=== PATIENT | male | born 1945 | race Caucasian/White ===

== ENCOUNTER 2017-03-11 15:05 | Observation (INO) | payer MEDICARE, BC ==
[2017-03-11] MEDS ORDERED: Sodium Chloride 0.9% 10 ML Syringe FLUSH PRN (15:28)
--- NOTE | 2017-03-11 15:28 | EDM.PDOC ---
ED HPI GENERAL MEDICAL PROBLEM - General Chief Complaint: Syncope Stated Complaint: FELL, FACE AND WRIST, [id number] Time Seen by Provider: 03/11/17 15:28 Source of Information: Reports: Patient, Old Records, RN, RN Notes Reviewed - History of Present Illness INITIAL COMMENTS - FREE TEXT/NARRATIVE: Patient arrives POV with complaint of bilateral wrist pain and multiple skin wounds sustained when the 4 foot high ladder that he was stranding on slid out from under him just prior to arrival. Patient states that he road the ladder down and did not directly fall to the ground. He admits to hitting his head but denies loss of consciousness. Shortly after arriving to the triage room, the patient had a syncopal episode with decreased level of consciousness for approximately 3 minutes during which time he became pale and diaphoretic. Patient quickly responded and had no further drops in blood pressure and heart rate. Onset: Today Location: Reports: Head, Upper Extremity, Left, Upper Extremity, Right Quality: Reports: Ache Severity: Severe Improves with: Reports: None Worsens with: Reports: None Associated Symptoms: Reports: No Other Symptoms Left Wrist Pain Score (Numeric/FACES): 7 - Related Data Allergies Allergy/AdvReac Type Severity Reaction Status Date / Time amoxicillin trihydrate Allergy unknown Verified 11/30/15 06:26 [From Augmentin] duloxetine HCl Allergy unknown Verified 11/30/15 06:26 [From Cymbalta] lamotrigine Allergy UNKNOWN Verified 11/30/15 06:26 methadone [Methadone] Allergy NAUSEA/VOMI Verified 11/30/15 06:26 TING/DIARRH EA phenytoin sodium Allergy unknown Verified 11/30/15 06:26 [From Dilantin] phenytoin sodium extended Allergy unknown Verified 11/30/15 06:26 [From Dilantin] potassium clavulanate Allergy unknown Verified 11/30/15 06:26 [From Augmentin] Home Meds: Home Meds Levothyroxine 25 mcg PO DAILY 06/16/14 [History] carBAMazepine [Carbamazepine] 200 mg PO BID 06/16/14 [History] Flunisolide [Nasalide Nasal [place]] 2 spray JAHAIRA BID 06/19/14 [History] Multivitamin with Minerals [Multiple Vitamin] 1 tab PO DAILY 06/19/14 [History] Baclofen 10 mg PO TID 09/05/14 [History] Tamsulosin [Tamsulosin 24 Hr] 0.4 mg PO DAILY 09/05/14 [History] Past Medical History HEENT History: Reports: Hard of Hearing, Impaired Vision, Other (See Below) ( trigeminal neuralgia) Other HEENT History: 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 Gastrointestinal History: Reports: GERD Genitourinary History: Reports: Prostate Disorder Musculoskeletal History: Reports: Other (See Below) Other Musculoskeletal History: SLIGHTLY IMPAIRED MOBILITY TO RIGHT SIDE D/T BRAIN SURGERY; TRIGONOM NEUROPATHY PAIN Neurological History: Reports: Other (See Below) Other Neuro History: Trigeminal neuralgia, 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 Psychiatric History: Reports: Depression Endocrine/Metabolic History: Reports: Hypoparathyroidism Hematologic History: Reports: Iron Deficiency Oncologic (Cancer) History: Reports: Malignant Melanoma Dermatologic History: Reports: Other (See Below) Other Dermatologic History: RASH TO BACK OF HEAD, NECK, BUTTOCKS, AND LEFT ARM - Infectious Disease History Other Infectious Disease History: PATIENT CANNOT REMEMBER INFECTIOUS DISEASE BACKGROUND - Past Surgical History HEENT Surgical History: Reports: Other (See Below) (brain surgery for trigeminal neuralgia.) Neurological Surgical History: Reports: Other (See Below) Oncologic Surgical History: Reports: Other (See Below) Social & Family History - Family History Family Medical History: Noncontributory - Tobacco Use Smoking Status *Q: Former Smoker Second Hand Smoke Exposure: No - Alcohol Use Days Per Week of Alcohol Use: 0 - Recreational Drug Use Recreational Drug Use: Yes - Living Situation & Occupation Living situation: Reports: , with Spouse Occupation: Retired ED ROS GENERAL - Review of Systems Review Of Systems: ROS reveals no pertinent complaints other than HPI. ED EXAM, GENERAL - Physical Exam Exam: See Below Exam Limited By: No Limitations General Appearance: Other (decreased LOC. pale and diaphoretic. ) Eye Exam: Bilateral Eye: Normal Inspection Ears: Normal External Exam, Normal Canal, Hearing Grossly Normal, Normal TMs Nose: Normal Inspection, Normal Mucosa, No Blood Throat/Mouth: Normal Inspection, Normal Lips, Normal Teeth, Normal Gums, Normal Oropharynx, Normal Voice, No Airway Compromise Head: Other (right scalp and facial abrasions and contusion. Chronic postoperative. Right facial/cranial minor deformities.) Neck: Other (mild posterior tenderness. C-spine cleared by CT scan.) Respiratory/Chest: No Respiratory Distress, Lungs Clear, Normal Breath Sounds, No Accessory Muscle Use, Chest Non-Tender Cardiovascular: Regular Rate, Rhythm, Bradycardia GI/Abdominal: Other (benign obese abdomen.) (Male) Exam: Deferred Rectal (Males) Exam: Deferred Back Exam: Normal Inspection, Full Range of Motion, NT Extremities: Other (left wrist tenderness with painful and decreased ROM. Left distal thumb soft tissue avulsion with partial nail avulsion. Abrasions to bilateral upper and lower extremities. ) Neurological: Alert, Oriented, No Motor/Sensory Deficits, Other (sudden near syncope with decreased LOC lasting 3 minutes. Glascow come scale is 15 on arrival, shortly after was 11, 15 at one hour and 15 at discharge..) Lymphatic: No Adenopathy EKG INTERPRETATION EKG Date: 03/11/17 Time: 15:34 Rhythm: Other (sinus bradycardia and first degree AV block.) Rate (Beats/Min): 54 QRS: LBBB Comparison: Change From Previous EKG Course - Vital Signs Last Recorded V/S: Last Vital Signs Temp 36.1 C 03/11/17 15:36 Pulse 48 L 03/11/17 15:36 Resp 20 03/11/17 15:36 BP 60/31 L 03/11/17 15:36 Pulse Ox 94 L 03/11/17 15:36 - Orders/Labs/Meds Orders: Active Orders 24 hr Category Date Time Status Blood Glucose Check, Bedside [RC] ONETIME Care 03/11/17 15:30 Active C Collar Applied [Spinal Immobilization] [RC] Care 03/11/17 15:31 Active ASDIRECTED Cardiac Monitoring [RC] . DIRECTED Care 03/11/17 15:31 Active EKG 12 Lead [EKG Documentation Completion] [RC] STAT Care 03/11/17 15:29 Active Peripheral IV Care [RC] . DIRECTED Care 03/11/17 15:30 Active Vaccines to be Administered [RC] PER UNIT ROUTINE Care 03/11/17 15:30 Active Sodium Chloride 0.9% [Normal Saline] 1,000 ml Med 03/11/17 17:00 Active IV ASDIRECTED Sodium Chloride 0.9% [Saline Flush] Med 03/11/17 15:28 Active 10 ml FLUSH ASDIRECTED PRN Peripheral IV Insertion Adult [OM.PC] Stat Oth 03/11/17 15:29 Ordered Medication Orders Sodium Chloride (Normal Saline) 1,000 mls @ 200 mls/hr IV ASDIRECTED RODNEY Last Admin: 03/11/17 16:59 Dose: 200 mls/hr Sodium Chloride (Saline Flush) 10 ml FLUSH ASDIRECTED PRN PRN Reason: Keep Vein Open Labs: Laboratory Tests 03/11/17 03/11/17 03/11/17 Range/Units 15:01 15:29 15:37 WBC 6.0 (5.0-10.0) 10^3/uL RBC 4.36 L (4.6-6.2) 10^6/uL Hgb 13.9 L (14.0-18.0) g/dL Hct 42.0 (40.0-54.0) % MCV 96.3 (80-100) fL MCH 31.9 (27.0-34.0) pg MCHC 33.1 (33.0-35.0) g/dL Plt Count 172 (150-450) 10^3/uL Neut % (Auto) 61.9 (42.2-75.2) % Lymph % (Auto) 21.7 (20.5-50.1) % [place] % (Auto) 12.2 H (2-8) % Eos % (Auto) 4.0 H (1.0-3.0) % Baso % (Auto) 0.2 (0.0-1.0) % PT (9.0-12.0) SEC INR (0.9-1.2) APTT (22.0-34.0) SEC Sodium (135-145) mmol/L Potassium (3.6-5.0) mmol/L Chloride (101-111) mmol/L Carbon Dioxide (21.0-31.0) mmol/L Anion Gap BUN (7-18) mg/dL Creatinine (0.6-1.3) mg/dL Est Cr Clr Drug Dosing mL/min Estimated GFR (MDRD) BUN/Creatinine Ratio Glucose (74-105) mg/dL POC Glucose 132 H (83-110) mg/dl Lactic Acid (0.5-2.2) mmol/L Calcium (8.4-10.2) mg/dl Total Bilirubin (0.2-1.0) mg/dL AST (10-42) IU/L ALT (10-60) IU/L Alkaline Phosphatase (42-121) IU/L Creatine Kinase (26-174) IU/L Creatine Kinase Index (0-2.4) % CK-MB (CK-2) (0.4-4.7) ng/mL Troponin I (0.00-0.02) ng/ml B-Natriuretic Peptide (0-100) pg/ml Total Protein (6.7-8.2) g/dl Albumin (3.2-5.5) g/dl Globulin Albumin/Globulin Ratio Amylase (28-100) U/L Lipase (22-51) U/L Urine Color (YELLOW) Urine Appearance (CLEAR) Urine pH (5.0-9.0) Ur Specific [place] (1.005-1.030) Urine Protein (NEGATIVE) Urine Glucose (UA) (NEGATIVE) Urine Ketones (NEGATIVE) Urine Occult Blood (NEGATIVE) Urine Nitrite (NEGATIVE) Urine Bilirubin (NEGATIVE) Urine Urobilinogen (0.2-1.0) mg/dL Ur Leukocyte Esterase (NEGATIVE) Urine RBC /HPF Urine WBC (0-5/HPF) /HPF Ur Epithelial Cells /HPF Urine Bacteria (0-FEW/HPF) /HPF Urine Mucus /LPF Urine Other Urine Opiates Screen Negative (NEGATIVE) Ur Oxycodone Screen Negative (NEGATIVE) Urine Methadone Screen Negative (NEGATIVE) Ur Barbiturates Screen Negative (NEGATIVE) U Tricyclic Antidepress Negative (NEGATIVE) Ur Phencyclidine Scrn Negative (NEGATIVE) Ur Amphetamine Screen Negative (NEGATIVE) U Methamphetamines Scrn Negative (NEGATIVE) Urine MDMA Screen Negative (NEGATIVE) U Benzodiazepines Scrn Negative (NEGATIVE) Urine Cocaine Screen Negative (NEGATIVE) U Marijuana (THC) Screen Negative (NEGATIVE) Ethyl Alcohol mg/dL 03/11/17 03/11/17 03/11/17 Range/Units 15:37 15:37 15:37 WBC (5.0-10.0) 10^3/uL RBC (4.6-6.2) 10^6/uL Hgb (14.0-18.0) g/dL Hct (40.0-54.0) % MCV (80-100) fL MCH (27.0-34.0) pg MCHC (33.0-35.0) g/dL Plt Count (150-450) 10^3/uL Neut % (Auto) (42.2-75.2) % Lymph % (Auto) (20.5-50.1) % [place] % (Auto) (2-8) % Eos % (Auto) (1.0-3.0) % Baso % (Auto) (0.0-1.0) % PT 10.0 (9.0-12.0) SEC INR 1.0 (0.9-1.2) APTT 25.0 (22.0-34.0) SEC Sodium 137 (135-145) mmol/L Potassium 3.6 (3.6-5.0) mmol/L Chloride 100 L (101-111) mmol/L Carbon Dioxide 27.0 (21.0-31.0) mmol/L Anion Gap 13.6 BUN 16 (7-18) mg/dL Creatinine 1.0 (0.6-1.3) mg/dL Est Cr Clr Drug Dosing 64.26 mL/min Estimated GFR (MDRD) > 60 BUN/Creatinine Ratio 16.00 Glucose 135 H (74-105) mg/dL POC Glucose (83-110) mg/dl Lactic Acid (0.5-2.2) mmol/L Calcium 8.0 L (8.4-10.2) mg/dl Total Bilirubin 0.7 (0.2-1.0) mg/dL AST 29 (10-42) IU/L ALT 28 (10-60) IU/L Alkaline Phosphatase 77 (42-121) IU/L Creatine Kinase 89 (26-174) IU/L Creatine Kinase Index 3.4 H (0-2.4) % CK-MB (CK-2) 3.00 (0.4-4.7) ng/mL Troponin I < 0.02 (0.00-0.02) ng/ml B-Natriuretic Peptide 25 (0-100) pg/ml Total Protein 6.0 L (6.7-8.2) g/dl Albumin 3.8 (3.2-5.5) g/dl Globulin 2.2 Albumin/Globulin Ratio 1.73 Amylase 83 (28-100) U/L Lipase 22 (22-51) U/L Urine Color (YELLOW) Urine Appearance (CLEAR) Urine pH (5.0-9.0) Ur Specific [place] (1.005-1.030) Urine Protein (NEGATIVE) Urine Glucose (UA) (NEGATIVE) Urine Ketones (NEGATIVE) Urine Occult Blood (NEGATIVE) Urine Nitrite (NEGATIVE) Urine Bilirubin (NEGATIVE) Urine Urobilinogen (0.2-1.0) mg/dL Ur Leukocyte Esterase (NEGATIVE) Urine RBC /HPF Urine WBC (0-5/HPF) /HPF Ur Epithelial Cells /HPF Urine Bacteria (0-FEW/HPF) /HPF Urine Mucus /LPF Urine Other Urine Opiates Screen (NEGATIVE) Ur Oxycodone Screen (NEGATIVE) Urine Methadone Screen (NEGATIVE) Ur Barbiturates Screen (NEGATIVE) U Tricyclic Antidepress (NEGATIVE) Ur Phencyclidine Scrn (NEGATIVE) Ur Amphetamine Screen (NEGATIVE) U Methamphetamines Scrn (NEGATIVE) Urine MDMA Screen (NEGATIVE) U Benzodiazepines Scrn (NEGATIVE) Urine Cocaine Screen (NEGATIVE) U Marijuana (THC) Screen (NEGATIVE) Ethyl Alcohol < 5 mg/dL 03/11/17 03/11/17 Range/Units 15:37 17:01 WBC (5.0-10.0) 10^3/uL RBC (4.6-6.2) 10^6/uL Hgb (14.0-18.0) g/dL Hct (40.0-54.0) % MCV (80-100) fL MCH (27.0-34.0) pg MCHC (33.0-35.0) g/dL Plt Count (150-450) 10^3/uL Neut % (Auto) (42.2-75.2) % Lymph % (Auto) (20.5-50.1) % [place] % (Auto) (2-8) % Eos % (Auto) (1.0-3.0) % Baso % (Auto) (0.0-1.0) % PT (9.0-12.0) SEC INR (0.9-1.2) APTT (22.0-34.0) SEC Sodium (135-145) mmol/L Potassium (3.6-5.0) mmol/L Chloride (101-111) mmol/L Carbon Dioxide (21.0-31.0) mmol/L Anion Gap BUN (7-18) mg/dL Creatinine (0.6-1.3) mg/dL Est Cr Clr Drug Dosing mL/min Estimated GFR (MDRD) BUN/Creatinine Ratio Glucose (74-105) mg/dL POC Glucose (83-110) mg/dl Lactic Acid 1.7 (0.5-2.2) mmol/L Calcium (8.4-10.2) mg/dl Total Bilirubin (0.2-1.0) mg/dL AST (10-42) IU/L ALT (10-60) IU/L Alkaline Phosphatase (42-121) IU/L Creatine Kinase (26-174) IU/L Creatine Kinase Index (0-2.4) % CK-MB (CK-2) (0.4-4.7) ng/mL Troponin I (0.00-0.02) ng/ml B-Natriuretic Peptide (0-100) pg/ml Total Protein (6.7-8.2) g/dl Albumin (3.2-5.5) g/dl Globulin Albumin/Globulin Ratio Amylase (28-100) U/L Lipase (22-51) U/L Urine Color Yellow (YELLOW) Urine Appearance Slightly cloudy (CLEAR) Urine pH 7.5 (5.0-9.0) Ur Specific [place] 1.015 (1.005-1.030) Urine Protein Negative (NEGATIVE) Urine Glucose (UA) Negative (NEGATIVE) Urine Ketones Negative (NEGATIVE) Urine Occult Blood Negative (NEGATIVE) Urine Nitrite Negative (NEGATIVE) Urine Bilirubin Negative (NEGATIVE) Urine Urobilinogen 0.2 (0.2-1.0) mg/dL Ur Leukocyte Esterase Negative (NEGATIVE) Urine RBC 0-5 /HPF Urine WBC 0-5 (0-5/HPF) /HPF Ur Epithelial Cells Few /HPF Urine Bacteria Not seen (0-FEW/HPF) /HPF Urine Mucus Rare /LPF Urine Other See note Urine Opiates Screen (NEGATIVE) Ur Oxycodone Screen (NEGATIVE) Urine Methadone Screen (NEGATIVE) Ur Barbiturates Screen (NEGATIVE) U Tricyclic Antidepress (NEGATIVE) Ur Phencyclidine Scrn (NEGATIVE) Ur Amphetamine Screen (NEGATIVE) U Methamphetamines Scrn (NEGATIVE) Urine MDMA Screen (NEGATIVE) U Benzodiazepines Scrn (NEGATIVE) Urine Cocaine Screen (NEGATIVE) U Marijuana (THC) Screen (NEGATIVE) Ethyl Alcohol mg/dL Meds: Medications Generic Name Dose Route Start Last Admin Trade Name Freq PRN Reason Stop Dose Admin Sodium Chloride 1,000 mls @ 200 mls/hr 03/11/17 17:00 03/11/17 16:59 Normal Saline IV 200 mls/hr ASDIRECTED RODNEY Administration Sodium Chloride 10 ml 03/11/17 15:28 Saline Flush FLUSH ASDIRECTED PRN Keep Vein Open Discontinued Medications Generic Name Dose Route Start Last Admin Trade Name Freq PRN Reason Stop Dose Admin Bacitracin 4 dose 03/11/17 16:31 03/11/17 17:17 Bacitracin Oint 1 Gm TOP 03/11/17 16:32 4 dose ONETIME ONE Administration Diphtheria/Tetanus/Acell Pertussis 0.5 ml 03/11/17 15:30 03/11/17 17:16 Adacel IM 03/11/17 15:31 0.5 ml .ONCE ONE Administration Hydromorphone HCl 0.5 mg 03/11/17 17:42 03/11/17 17:58 Dilaudid IVPUSH 03/11/17 17:43 0.5 mg ONETIME ONE Administration Sodium Chloride 1,000 mls @ 999 mls/hr 03/11/17 15:31 03/11/17 16:05 Normal Saline IV 03/11/17 16:31 999 mls/hr .BOLUS ONE Administration Iopamidol 100 ml 03/11/17 16:04 03/11/17 16:06 Isovue-300 (61%) IVPUSH 03/11/17 16:05 100 ml ONETIME ONE Administration Ondansetron HCl 4 mg 03/11/17 17:42 03/11/17 17:57 Zofran IV 03/11/17 17:43 4 mg ONETIME ONE Administration - Radiology Interpretation Free Text/Narrative:: CT Head: No sign of skull fracture or closed head trauma. See rad report. CT C-spine: Evidence of old trauma and arthritis. No acute fractures. See rad report. CT chest, abdomen/pelvis: Hiatus hernia. Sigmoid diverticulosis. Lower pole left renal cyst. No visceral trauma, ascities or hematomas. See rad report. X-ray right wrist: Acute, comminuted mildly impacted but nondisplaced distal radial fracture that extends into the wrist joint. Surrounding soft tissue swelling and associated fracture base of the ulnar styloid. See rad report. Left wrist x-ray: Distal left radial fracture. See rad report. Departure - Departure Time of Disposition: 17:18 ((Admit to Dr. Jeffrey)) Disposition: Admitted As Inpatient 67 Condition: Fair Clinical Impression: Abrasions of multiple sites, Multiple contusions Syncope Qualifiers: Syncope type: unspecified Qualified Code(s): R55 - Syncope and collapse Closed fracture of distal end of left radius with ulna Qualifiers: Encounter type: initial encounter Qualified Code(s): S52.502A - Unspecified fracture of the lower end of left radius, initial encounter for closed fracture ; S52.602A - Unspecified fracture of lower end of left ulna, initial encounter for closed fracture Closed fracture of right distal radius and ulna Qualifiers: Encounter type: initial encounter Qualified Code(s): S52.501A - Unspecified fracture of the lower end of right radius, initial encounter for closed fracture ; S52.601A - Unspecified fracture of lower end of right ulna, initial encounter for closed fracture - Discharge Information - My Orders Last 24 Hours: My Active Orders 03/11/17 15:28 Sodium Chloride 0.9% [Saline Flush] 10 ml FLUSH ASDIRECTED PRN 03/11/17 15:29 EKG 12 Lead [EKG Documentation Completion] [RC] STAT Peripheral IV Insertion Adult [OM.PC] Stat 03/11/17 15:30 Blood Glucose Check, Bedside [RC] ONETIME Peripheral IV Care [RC] . DIRECTED Vaccines to be Administered [RC] PER UNIT ROUTINE 03/11/17 15:31 C Collar Applied [Spinal Immobilization] [RC] ASDIRECTED Cardiac Monitoring [RC] . DIRECTED 03/11/17 17:00 Sodium Chloride 0.9% [Normal Saline] 1,000 ml IV ASDIRECTED - Assessment/Plan Last 24 Hours: My Active Orders 03/11/17 15:28 Sodium Chloride 0.9% [Saline Flush] 10 ml FLUSH ASDIRECTED PRN 03/11/17 15:29 EKG 12 Lead [EKG Documentation Completion] [RC] STAT Peripheral IV Insertion Adult [OM.PC] Stat 03/11/17 15:30 Blood Glucose Check, Bedside [RC] ONETIME Peripheral IV Care [RC] . DIRECTED Vaccines to be Administered [RC] PER UNIT ROUTINE 03/11/17 15:31 C Collar Applied [Spinal Immobilization] [RC] ASDIRECTED Cardiac Monitoring [RC] . DIRECTED 03/11/17 17:00 Sodium Chloride 0.9% [Normal Saline] 1,000 ml IV ASDIRECTED
[2017-03-11] MEDS ORDERED: Diphtheria,Pertussis(Acell),Tetanus Vaccine 0.5 ML SDV IM ONE (15:30)
[2017-03-11] MEDS ORDERED: Sodium Chloride 0.9% 1,000 ML IV ONE (15:31)
[2017-03-11] MEDS ORDERED: Iopamidol 612 MG/ML 100 ML Bottle IVPUSH ONE (16:04)
[2017-03-11 16:07] LABS: CHLORIDE,CL 100 mmol/L (101-111); SODIUM,NA 137 mmol/L (135-145)
[2017-03-11] MEDS ORDERED: Bacitracin Oint 1 GM U/D Packet TOP ONE (16:31)
--- NOTE | 2017-03-11 16:55 | CT ---
Clinical history: A 71-year-old male who broke both wrists in a fall off of a ladder. Contusion side of the head but no other pain. Scan technique: Volume acquisition of data emergency unenhanced CT scan cervical spine obtained the p atient lying supine on a Siemens multi slice CT scanner [facility]. All data archived in the PACS system for storage, reformatting and study. Interpretation: 1. Nondisplaced smoothly corticated osseous fragment posterior corner, base of the second vertebral b millie, without associated soft tissue swelling, has appearance most consistent with old injury ("[facility]"). 2. Reactive atlantoaxial sclerosis and hypertrophic marginal spondylosis multiple levels cervical and upper thoracic spine. 3. No prevertebral soft tissue swelling and no signs of acute cervical fracture, spondylolisthesis or jumped locked facet. CONCLUSION: Evidence of old trauma and arthritis. No acute fractures.
--- NOTE | 2017-03-11 16:56 | CR ---
Clinical history: 71-year-old male fell off a ladder. Interpretation: 3 views right wrist abnormal. Acute, comminuted, mildly impacted but nondisplaced distal radial fracture that extends into the wris t joint. No carpal bone fracture or dislocation.. Surrounding soft tissue swelling and associated fracture base of the ulnar styloid.
[2017-03-11] MEDS ORDERED: Sodium Chloride 0.9% 1,000 ML IV SCH (17:00)
--- NOTE | 2017-03-11 17:35 | CR ---
Clinical history: 71-year-old male ejected in fall off of ladder. Interpretation: Comminuted, slightly impacted and dorsally angulated distal diametaphyseal fracture l eft radius that extends into the ipsilateral wrist joint. Chronic soft tissue swelling but no other fracture or signs of wrist dislocation. No foreign bodies. Conclusion: Abnormal. Distal left radial fracture.
--- NOTE | 2017-03-11 17:38 | CT ---
Clinical history: 71-year-old male injured in fall off of roof (broke both wrists). Scan technique: Volume acquisition of data emergency unenhanced CT scan of the head and brain obtaine d with patient lying supine on a Siemens multi slice CT scanner [facility]. All data archived in the PACS system for storage, reformatting and study (bone/brain wind ows). Interpretation: Uniformly thick bony calvarium without sign of skull fracture, underlying brain contu huong or epidural/subdural hematoma. Symmetric clear pneumatization of the mastoid and paranasal sinus es. Mild age appropriate atrophy symmetric in appearance with underlying mirror-image normal ventricular system. No sign of supratentorial or posterior fossa mass lesion. No hydrocephalus. No ischemic infarcts. No sign of acute intracerebral/intraventricular/subarachnoid bleed. Physiologic midline pineal and symmetric choroid plexus calcifications. Cerebellum and brainstem unre markable. CONCLUSION: No sign of skull fracture or closed head trauma.
[2017-03-11] MEDS ORDERED: HYDROmorphone 1 MG/ML Syringe IVPUSH ONE (17:42)
[2017-03-11] MEDS ORDERED: Ondansetron 4 MG/2 ML SDV IV ONE (17:42)
--- NOTE | 2017-03-11 17:46 | CT ---
Clinical history: 71-year-old male injured in fall (off of the roof) which he broke both wrists. Scan technique: Volume acquisition of data emergency unenhanced CT scan of the chest, abdomen and pel vis obtained with patient lying supine on the Siemens multi slice CT scanner [place], [place]. All data archived in the PACS system for storage, reformatting and study. Interpretation: Kyphosis dorsal spine, signs of multilevel mid thoracic and lower lumbar disc disease with associated hypertrophic arthritic changes of the spine. No thoracolumbar fracture or dislocatio n. No foreign bodies. Normal cardiac silhouette and faint calcifications normal caliber thoracic and abdominal aorta. No pe ricardial effusion. No rib fractures, lung contusion or pleural effusion. No lung mass or lobar infiltrate. (Large hiatus hernia middle mediastinum) Gallbladder, unenhanced liver, stomach, spleen, pancreas, adrenal glands and kidneys unremarkable exc ept for a solitary 1.5 cm diameter cyst lower pole left kidney. No perinephric hematomas. No nephroli thiasis or obstruction. Sigmoid diverticulosis. No pelvic or abdominal mass lesion, signs of mechanical bowel obstruction, inflammatory "dirty" perit alexander fat, ascites or free intraperitoneal air. CONCLUSION: Hiatus hernia. Sigmoid diverticulosis. Lower pole left renal cyst. No visceral trauma, as cites or hematomas.
[2017-03-11] MEDS ORDERED: Magnesium Hydroxide 400 MG/5 ML Susp 30 ML Cup PO PRN (18:03)
[2017-03-11] MEDS ORDERED: Bisacodyl 10 MG Supp RECTAL PRN (18:03)
[2017-03-11] MEDS: Acetaminophen 325 MG Tab PO PRN (18:59)
[2017-03-11] MEDS: carBAMazepine 100 MG Tab.Chew PO SCH (21:02)
[2017-03-11] MEDS: Baclofen 10 MG Tab PO SCH (21:23)
[2017-03-11] MEDS: Acetaminophen/HYDROcodone 325-5 MG Tab PO PRN (21:23)
[2017-03-11] MEDS: Tamsulosin 0.4 MG Cap.ER PO SCH (21:39)
[2017-03-12] MEDS: Acetaminophen 325 MG Tab PO PRN (00:29)
[2017-03-12] MEDS: Acetaminophen/HYDROcodone 325-5 MG Tab PO PRN ×4 (03:18→21:11)
[2017-03-12] MEDS ORDERED: Tamsulosin 0.4 MG Cap.ER PO SCH (09:00)
[2017-03-12] MEDS: Tamsulosin 0.4 MG Cap.ER PO SCH (09:02)
[2017-03-12] MEDS: Levothyroxine 25 MCG Tab PO SCH (09:02)
[2017-03-12] MEDS: carBAMazepine 100 MG Tab.Chew PO SCH ×2 (09:03→21:10)
[2017-03-12] MEDS: Baclofen 10 MG Tab PO SCH ×3 (09:04→21:10)
--- NOTE | 2017-03-12 12:53 | HP ---
REASON FOR ADMISSION: Fall from ladder with bilateral wrist fractures. HISTORY OF PRESENT ILLNESS: Mr. Heath is a 71-year-old gentleman who was at his son's home, doing shingling; he had a ladder propped up and the ladder slipped, went off under him, and he extended his arms to break the fall and sustained fractures of the bilateral wrists. Splints were placed in the ER and he was admitted for short-term management. 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 Hypothyroidism, cerebral vascular disease with previous stroke, history of gastric ulcer, history of UGI bleed. The chart states previous stroke, although he denies that, but it is mentioned several times in his chart. He is followed by the [facility]. PAST SURGICAL HISTORY: Appendectomy, upper GI with biopsy in 2014, and previous craniotomy. SOCIAL HISTORY: He is . He was a former smoker, who smoked from around the age of 14 until 01/01/1992, at 11:30 a.m. when he decided he was just going to stop smoking and he quit. He smoked between 1 to 1/2 packs of cigarettes a day which gives him more than a 50-pack year history of smoking. No regular alcohol use. 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 He has 1 son, 1 daughter, 4 grandchildren, and 1 great grandchild. He grew up in the [facility]. HISTORY: He was in the [employer] for almost 4 years. He spent 2-1/2 years in [place]. He has no service-connected disability. FAMILY HISTORY: Father of heart disease. CURRENT MEDICATIONS: 1. Carbamazepine. 2. Tamsulosin. 3. Multivitamin with minerals. 4. Levothyroxine. 5. Nasalide nasal spray. 6. Baclofen. Please see [employer] for dosing. ALLERGIES: 1. Amoxicillin. 2. Cymbalta. 3. Lamotrigine. 4. Methadone. 5. Phenytoin. PHYSICAL EXAMINATION: General: He is a pleasant gentleman who is lying in bed, both of his arms are encased in short-arm splints. He did not appear to be in any acute pain. He participated throughout the visit. Memory was intact. Vital Signs: Blood pressure was 128/62 on the left, 134/73 on the right; pulse 82 and regular; respiratory rate 20; oxygen saturation 94% on room air; and he is afebrile. Height 5 feet 7 inches, stated weight of 180 pounds, although he looks somewhat heavier. HEENT: Showed neck to be supple. ENT was clear. He does have scrapes along the right caodaism area, which are covered with a Tegaderm. Chest: Showed clear, but diminished bilateral breath sounds. Heart: Showed regular rate and rhythm. Abdomen: Obese, soft, and benign. Musculoskeletal: Lower extremities showed abrasions on the knees, where he had fallen. Examination of the upper extremities showed both arms to be encased in a short-arm fiberglass splints. LABORATORY DATA: CBC was unremarkable. Baseline PT and PTT within normal limits. Chemistry showed normal electrolytes. BUN and creatinine were 16 and 1.0 with a GFR of more than 60. Nonfasting blood sugar 135. LFTs are unremarkable. CPK was normal. Troponin was less than 0.02. BNP was normal. Amylase and lipase were negative. Urinalysis was unremarkable. No hematuria. Urine toxicology was negative. Blood alcohol was not detected. IMAGING STUDIES: CT scan of the cervical spine, chest, abdomen and pelvis were performed. Cervical spine showed evidence of old trauma and arthritis, but no acute fractures. CT scan of the chest, abdomen and pelvis showed a hiatal hernia, sigmoid diverticulosis, a cyst at lower pole of the left kidney, but no internal trauma to the viscera. No ascites. No hematomas. CT scan of the head showed no sign of skull fracture or closed head injury. X-rays were taken of the bilateral wrists. On the right wrist, it was an acute comminuted mildly impacted, but nondisplaced distal radial fracture that extends into the wrist joint. X-rays of the left wrist showed a comminuted slightly impacted dorsally angulated distal fracture of the left radius that extends into the wrist joint. IMPRESSION: A 71-year-old gentleman who was on a ladder, doing shingling, when the ladder slipped and he fell with arms extended and sustained bilateral wrist fractures as above. PLAN: He was admitted for further observation and for pain management. We started him on hydrocodone 5/325, 1 tablet every 6 hours p.r.n. for pain. The arms will be elevated when possible while in bed. We offered to place cold packs over the splinting, but he did not think that they could penetrate the fiberglass, although we explained to him it could, but he declined. The images of his wrist fractures have been sent to the [facility] and tomorrow we will contact Orthopedics to arrange a followup plan. CONDITION AT THE TIME OF ADMISSION: Hemodynamically and neurologically stable. CODE STATUS: Full code. [facility] /[id number]
[2017-03-12] MEDS: Heparin Sodium 5,000 Units/ML Vial SUBCUT SCH ×2 (14:59→21:11)
--- NOTE | 2017-03-12 15:02 | PN ---
DATE: 03/12/2017 HISTORY OF PRESENT ILLNESS: Mr. Kumar Willingham is a 71-year-old male with medical history significant for hypertension, hypothyroidism, was admitted to the hospital after he had a fall at home and sustaining a bilateral wrist fractures. For the last 24 hours, the patient continues to have pain to the bilateral wrist more so on the left side, rates it as 5 to 6/10 in intensity, aggravated on movement, relieved with pain medication, nonradiating type of pain, not associated with any nausea or vomiting. Denies any chest pain. No shortness of breath. No abdominal pain. No nausea. No vomiting. No diarrhea. No headaches. No changes in the vision. REVIEW OF SYSTEMS: Cardiovascular, respiratory, gastrointestinal, neurology, constitutional were all evaluated. PHYSICAL EXAMINATION: Vital Signs: Temperature of 98.6, pulse of 75, blood pressure 104/52, respiratory rate of 20, saturating at 97% on room air. General Appearance: The patient is well oriented to time, place, and person. Follows commands spontaneously. Cardiovascular System: S1, S2 heard with normal intensity. No gallops. Respiratory: Clear to auscultation bilaterally. No wheeze. No crepitations. Abdomen: Soft. Bowel sounds positive. Nontender. No rigidity. Extremities: No edema in bilateral lower extremities. The patient is noted to have a splint on bilateral upper extremity for his wrist fracture. MEDICATIONS: Reviewed. Continue with: 1. Tylenol 650 every 4 hours as needed for pain. 2. [place] 5/325 mg every 6 hours as needed for pain. 3. Bisacodyl 10 mg rectal as needed for constipation. 4. Carbamazepine 200 mg twice a day. 5. Levothyroxine 25 mg daily. 6. Flomax 0.4 mg p.o. daily. LABORATORY DATA: Reviewed. ASSESSMENT: 1. Bilateral wrist fractures. 2. Hypothyroidism. PLAN: 1. Bilateral wrist fractures. I had a detailed discussion with Dr. Axel Loyd from [facility], and as per Orthopedic Services, the patient will need outpatient followup, but currently patient is having excessive pain. He is currently on observation status. We will closely monitor him for the next 24 hours. We will closely follow with the pain medications. We will have Physical Therapy and Occupational Therapy evaluate and treat the patient, and possible discharge the patient in a.m. He will be advised to follow with Orthopedic Services on Thursday at [facility] for possible casting at this time. No surgical intervention needed at this time as discussed with Orthopedic Services. 2. Hypothyroidism. Continue with levothyroxine. 3. DVT prophylaxis. We will have him on heparin for subcu q.8 hourly for DVT prophylaxis. 4. Discussed with family members at bedside. 5. Discussed with Dr. Es Jeffrey regarding the plan of care. [facility] /[id number]
[2017-03-12] MEDS ORDERED: Fluticasone Propionate Nasal Spray 16 GM Bottle NASBOTH PRN (16:37)
[2017-03-13] MEDS: Acetaminophen/HYDROcodone 325-5 MG Tab PO PRN ×2 (02:45→10:27)
[2017-03-13] MEDS: Heparin Sodium 5,000 Units/ML Vial SUBCUT SCH (05:17)
[2017-03-13 07:35] VITALS: BP 123/80
[2017-03-13] MEDS: Baclofen 10 MG Tab PO SCH (10:19)
[2017-03-13] MEDS: Levothyroxine 25 MCG Tab PO SCH (10:19)
[2017-03-13] MEDS: carBAMazepine 100 MG Tab.Chew PO SCH (10:19)
[2017-03-13] MEDS: Tamsulosin 0.4 MG Cap.ER PO SCH (10:19)
--- NOTE | 2017-03-13 12:37 | DISCH ---
ADMITTING DIAGNOSIS: Bilateral wrist fractures. DISCHARGE DIAGNOSIS: Bilateral wrist fractures. HISTORY OF PRESENT ILLNESS: Mr. Mat Heath is a 71-year-old male with a medical history significant for trigeminal neuralgia, hypothyroidism, cerebrovascular disease with previous history of cerebrovascular accident in the past, history of upper GI bleed in the past, presented to the hospital after he had a fall from the ladder and sustained bilateral wrist fractures. The patient was referred to observation status. He was closely monitored in the Telemetry Unit in the initial 24 hours, which did not show any acute pathology. He remained in normal sinus rhythm. He continued to have pain requiring opiate pain medications. The patient's case was referred to [facility], who have reviewed the imaging studies and suggested for outpatient followup on Thursday for further treatment plans. No surgical intervention planned at this time. The patient remained hemodynamically stable on this admission. He is discharged home in stable condition. He is advised to follow with Orthopedic Services at [facility] on Thursday. DISCHARGE MEDICATIONS: Include: 1. [place] 5/325 mg every 6 hours as needed for pain. 2. Baclofen 10 mg three times a day. 3. Docusate sodium with Senokot as needed for constipation twice a day. 4. Flunisolide nasal spray as needed. 5. Levothyroxine 25 mcg daily. 6. Multivitamin 1 tablet daily. 7. Flomax 0.4 mg daily. 8. Carbamazepine 200 mg twice daily. PHYSICAL EXAMINATION: On the day of discharge: Vital Signs: Temperature of 98.5, pulse of 73, respiratory rate of 20, blood pressure 123/80, and saturating at 98% on room air. General: The patient is well oriented to time, place, and person. Follows commands spontaneously. Cardiovascular System: S1 and S2 heard with normal intensity. No gallops. Respiratory System: Clear to auscultation bilaterally. No wheeze. No crepitations. Abdomen: Soft. Bowel sounds positive. Nontender. No rigidity. Extremities: No edema, bilateral lower extremities. CONDITION ON ADMISSION: Poor. CONDITION ON DISCHARGE: Stable. ACTIVITY: As tolerated. No driving recommended. DIET: Regular diet. DISCHARGE INSTRUCTIONS: 1. Follow up with Orthopedic Services at [facility] on Thursday for further evaluation and treatment. 2. The patient was explained about the additional medications and side effect profile of medications. 3. Follow up with primary care physician as scheduled. LIANG: 03/13/2017 11:06:52 [facility] /[id number]
--- NOTE | 2017-03-17 13:20 | EKG ---
03/11/2017 - ABDULAZIZ GODFREY - A 12-lead EKG shows normal sinus rhythm with sinus bradycardia. First-degree AV block and left bundle branch block. Heart rate of 54. HI interval of 224. QTc of 471. No significant ST elevation or ST depression noted on this 12-lead EKG. [facility] /[id number]
== END 2017-03-13 12:10 | disposition home or self-care (01) ==
LOC: DL.ED 15:05 → UNDOADMOB 17:31 → INTOOBSV 17:31 → DL.MS 17:31 → UNDOADMOB 17:35 → DL.MS 17:35
PROVIDERS: ADMIT Internal Medicine; ATTEND Internal Medicine
DX: S52.502A Unspecified fracture of the lower end of left radius, initial encounter for closed fracture (principal); S52.501A Unspecified fracture of the lower end of right radius, initial encounter for closed fracture; K21.9 Gastro-esophageal reflux disease without esophagitis; F32.9 Major depressive disorder, single episode, unspecified; E20.9 Hypoparathyroidism, unspecified; W11.XXXA Fall on and from ladder, initial encounter; Z88.1 Allergy status to other antibiotic agents; Z88.8 Allergy status to other drugs, medicaments and biological substances; Z79.899 Other long term (current) drug therapy; Z87.891 Personal history of nicotine dependence; Z98.890 Other specified postprocedural states
CPT/HCPCS: 36415; 70450; 71260; 72125; 73110; 74177; 80053; 80305; 81001; 82150; 82550; 82553; 82962; 83605; 83690; 83880; 84484; 85025; 85610; 85730; 90471; 90715; 93005; 93010; 96361; 96374; 96375; 97165; 99284; A9270; G0480; J1170; J1644; J2405; J7030; Q9967; 96372; 97162-GP; 99217; 99220; 99225; G0378

== ENCOUNTER 2018-10-14 19:58 | Observation (INO) | payer MEDICARE, BC ==
[~2018-10-14 19:58] MED LIST: Sodium Chloride 0.9% 10 ML Syringe FLUSH PRN
[2018-10-14] MEDS ORDERED: Lactated Ringers 1,000 ML IV ONE (20:15)
[2018-10-14 20:27] LABS: ANION GAP 12.3; CHLORIDE,CL 104 mmol/L (101-111); SODIUM,NA 137 mmol/L (135-145)
--- NOTE | 2018-10-14 21:26 | EDM.PDOC ---
ED HPI GENERAL MEDICAL PROBLEM - General Chief Complaint: Cardiovascular Problem Stated Complaint: (CARDIAC) AMBULANCE Time Seen by Provider: 10/14/18 19:58 Source of Information: Reports: Patient, EMS, EMS Notes Reviewed, Family, RN, RN Notes Reviewed History Limitations: Reports: No Limitations - History of Present Illness INITIAL COMMENTS - FREE TEXT/NARRATIVE: Pt to ER per [facility] with c/o syncopal episode. EMS states the patient was eating at [place] with family when he "passed out" and vomited. EMS reports the patient was still lethargic upon arrival. Upon arrival to the ER patient is alert and oriented. He states he does not remember the episode. He denies chest pains or SOB. He states he has been working very hard lately and is "over tired ". Patient states history of surgery for trigeminal neuralgia that left him with facial droop on the left side and right sided hemiparesis. Patient denies any other health problems, denies diabetes. Onset: Today, Sudden - Related Data Allergies Allergy/AdvReac Type Severity Reaction Status Date / Time amoxicillin trihydrate Allergy unknown Verified 03/11/17 20:04 [From Augmentin] duloxetine HCl Allergy unknown Verified 03/11/17 20:04 [From Cymbalta] lamotrigine Allergy UNKNOWN Verified 03/11/17 20:04 methadone [Methadone] Allergy NAUSEA/VOMI Verified 03/11/17 20:04 TING/DIARRH EA phenytoin sodium Allergy Hives Verified 03/11/17 20:04 [From Dilantin] phenytoin sodium extended Allergy unknown Verified 03/11/17 20:04 [From Dilantin] potassium clavulanate Allergy unknown Verified 03/11/17 20:04 [From Augmentin] Home Meds: Home Meds Alfuzosin HCl [Alfuzosin HCl ER] 10 mg PO DAILY 10/14/18 [History] Baclofen 5 mg PO ACLUNCH 10/14/18 [History] Baclofen 10 mg PO BID 10/14/18 [History] Cetirizine HCl 10 mg PO BEDTIME 10/14/18 [History] Pregabalin [Lyrica] 200 mg PO TID 10/14/18 [History] Past Medical History HEENT History: Reports: Hard of Hearing, Impaired Vision, Other (See Below) Other HEENT History: 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 Gastrointestinal History: Reports: GERD Other Gastrointestinal History: ulcer Genitourinary History: Reports: Prostate Disorder Musculoskeletal History: Reports: Other (See Below) Other Musculoskeletal History: SLIGHTLY IMPAIRED MOBILITY TO RIGHT SIDE D/T BRAIN SURGERY; TRIGONOM NEUROPATHY PAIN Neurological History: Reports: Other (See Below) Other Neuro History: Trigeminal neuralgia, 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 Psychiatric History: Reports: Depression Endocrine/Metabolic History: Reports: Hypoparathyroidism Hematologic History: Reports: Iron Deficiency Oncologic (Cancer) History: Reports: Malignant Melanoma Dermatologic History: Reports: Other (See Below) Other Dermatologic History: RASH TO BACK OF HEAD, NECK, BUTTOCKS, AND LEFT ARM - Infectious Disease History Other Infectious Disease History: PATIENT CANNOT REMEMBER INFECTIOUS DISEASE BACKGROUND - Past Surgical History Head Surgeries/Procedures: Reports: Craniotomy HEENT Surgical History: Reports: Other (See Below) Cardiovascular Surgical History: Reports: None Respiratory Surgical History: Reports: None Neurological Surgical History: Reports: Other (See Below) Oncologic Surgical History: Reports: Other (See Below) Social & Family History - Family History Family Medical History: Noncontributory - Tobacco Use Smoking Status *Q: Never Smoker - Caffeine Use Caffeine Use: Reports: None - Recreational Drug Use Recreational Drug Use: No - Living Situation & Occupation Living situation: Reports: , with Spouse Occupation: Retired ED ROS GENERAL - Review of Systems Review Of Systems: ROS reveals no pertinent complaints other than HPI. ED EXAM, GENERAL - Physical Exam Exam: See Below Exam Limited By: No Limitations General Appearance: Alert, WD/WN, No Apparent Distress Eye Exam: Bilateral Eye: EOMI, Normal Inspection Ears: Normal External Exam, Normal Canal, Hearing Grossly Normal, Normal TMs Nose: Normal Inspection, Normal Mucosa, No Blood Throat/Mouth: Normal Inspection, Normal Lips, Normal Teeth, Normal Gums, Normal Oropharynx, Normal Voice, No Airway Compromise Head: Atraumatic, Normocephalic Neck: Normal Inspection, Supple, Non-Tender, Full Range of Motion Respiratory/Chest: No Respiratory Distress, Lungs Clear, Normal Breath Sounds, No Accessory Muscle Use, Chest Non-Tender Cardiovascular: Normal Peripheral Pulses, Regular Rate, Rhythm, No Edema, No Gallop, No JVD, No Murmur, No Rub Peripheral Pulses: 2+: Radial (L), Radial (R), Dorsalis Pedis (L), Dorsalis Pedis (R) GI/Abdominal: Normal Bowel Sounds, Soft, Non-Tender, No Organomegaly, No Distention, No Abnormal Bruit, No Mass (Male) Exam: Deferred Rectal (Males) Exam: Deferred Back Exam: Normal Inspection, Full Range of Motion, NT Extremities: Normal Inspection Neurological: Alert, Oriented, CN II-XII Intact, Normal Cognition, Other ( numbness right arm, right leg, not new) Psychiatric: Normal Affect, Normal Mood Skin Exam: Warm, Dry, Intact, Normal Color, No Rash Lymphatic: No Adenopathy Course - Vital Signs Last Recorded V/S: Last Vital Signs Temp 98.1 F 10/15/18 11:40 Pulse 66 10/15/18 11:40 Resp 18 10/15/18 11:40 BP 136/69 10/15/18 11:40 Pulse Ox 96 10/15/18 11:40 - Orders/Labs/Meds Labs: Laboratory Tests 10/14/18 10/14/18 10/14/18 Range/Units 20:00 20:00 20:00 WBC 5.1 (5.0-10.0) 10^3/uL RBC 4.45 L (4.6-6.2) 10^6/uL Hgb 14.0 (14.0-18.0) g/dL Hct 41.7 (40.0-54.0) % MCV 93.7 (80-100) fL MCH 31.5 (27.0-34.0) pg MCHC 33.6 (33.0-35.0) g/dL Plt Count 151 (150-450) 10^3/uL Neut % (Auto) 52.8 (42.2-75.2) % Lymph % (Auto) 28.3 (20.5-50.1) % [place] % (Auto) 16.3 H (2-8) % Eos % (Auto) 2.4 (1.0-3.0) % Baso % (Auto) 0.2 (0.0-1.0) % PT 9.8 (9.0-12.0) SEC INR 1.0 (0.9-1.2) Sodium 137 (135-145) mmol/L Potassium 3.3 L (3.6-5.0) mmol/L Chloride 104 (101-111) mmol/L Carbon Dioxide 24.0 (21.0-31.0) mmol/L Anion Gap 12.3 BUN 13 (7-18) mg/dL Creatinine 0.9 (0.6-1.3) mg/dL Est Cr Clr Drug Dosing TNP Estimated GFR (MDRD) > 60 BUN/Creatinine Ratio 14.44 Glucose 129 H (74-105) mg/dL Calcium 7.7 L (8.4-10.2) mg/dl Total Bilirubin 0.5 (0.2-1.0) mg/dL AST 23 (10-42) IU/L ALT 16 (10-60) IU/L Alkaline Phosphatase 85 (42-121) IU/L Troponin I < 0.02 (0.00-0.02) ng/ml Total Protein 5.9 L (6.7-8.2) g/dl Albumin 3.6 (3.2-5.5) g/dl Globulin 2.3 Albumin/Globulin Ratio 1.57 Meds: Medications Discontinued Medications Generic Name Dose Route Start Last Admin Trade Name Freq PRN Reason Stop Dose Admin Baclofen 5 mg 10/15/18 11:00 10/15/18 12:59 Lioresal PO Not Given ACLUNCH RODNEY Baclofen 10 mg 10/14/18 23:15 10/15/18 10:43 Lioresal PO Not Given BID RODNEY Heparin Sodium (Porcine) 5,000 units 10/14/18 22:45 10/15/18 10:51 Heparin Sodium SUBCUT Not Given Q12H RODNEY Lactated Ringer's 1,000 mls @ 999 mls/hr 10/14/18 20:15 10/14/18 20:16 Ringers, Lactated IV 10/14/18 21:15 999 mls/hr .BOLUS ONE Administration Potassium Chloride 10 meq/ 100 mls @ 100 mls/hr 10/14/18 22:45 10/15/18 01:50 Premix IV 10/15/18 01:44 100 mls/hr Q1H RODNEY Administration Sodium Chloride 1,000 mls @ 75 mls/hr 10/14/18 22:45 10/15/18 10:21 Normal Saline IV 75 mls/hr ASDIRECTED RODNEY Infusion Alfuzosin 10 Mg Sa 0 mg 10/15/18 09:00 10/15/18 10:43 Tabs Own Med PO Not Given DAILY RODNEY Cetirizine 10 Mg 0 mg 10/14/18 23:30 10/14/18 23:47 Own Med PO 10 mg BEDTIME RODNEY Administration Pregabalin 200 Mg 0 mg 10/14/18 23:15 10/15/18 10:43 Capsules Own Med PO Not Given TID RODNEY Sodium Chloride 10 ml 10/14/18 19:54 10/14/18 20:15 Saline Flush FLUSH 10 ml ASDIRECTED PRN Administration Keep Vein Open - Radiology Interpretation Free Text/Narrative:: Chest xray: FINDINGS: Lungs: Mild pulmonary vascular congestion. Pleural space: No pneumothorax. No sizable pleural effusion. Heart/Mediastinum: Mild cardiomegaly. Bones/joints: Unremarkable. IMPRESSION: Mild pulmonary vascular congestion. Thank you for allowing us to participate in the care of your patient. Dictated and Authenticated by: Nikko Delgado MD 10/14/2018 8:42 PM Central Time ([place] & [place]) Head CT wo contrast: FINDINGS: Brain: Age-related involutional changes and chronic microvascular ischemic disease. No evidence for acute transcortical infarct. No mass effect or midline shift. No extra- axial collection. No acute intracranial hemorrhage. Basal cisterns are patent. Ventricles: Normal. No ventriculomegaly. Bones/joints: Unremarkable. No acute fracture. Sinuses: Mucosal thickening involving the maxillary sinuses and ethmoid air cells. Mastoid air cells: Visualized mastoid air cells are unremarkable. No mastoid effusion. Soft tissues: Unremarkable. IMPRESSION: No evidence for acute transcortical infarct, acute intracranial hemorrhage, or mass effect. Thank you for allowing us to participate in the care of your patient. Dictated and Authenticated by: Nikko Delgado MD 10/14/2018 9:29 PM Central Time ([place] & [place]) See rad report - Re-Assessments/Exams Free Text/Narrative Re-Assessment/Exam: 10/14/18 21:24 Discussed Pt EKG with Dr. Chapa, Chemical Dependency Professional at [facility] in [place]. The current EKG and a past EKG from 2017 was faxed to him for review. He states there is no STEMI at this time. Probable V2 V3 ST elevation due to LBBB, unchanged from 2017 EKG. 10/14/18 21:37 Discussed patient case with Dr. Guzmán who agreed to accept the patient for observation. Departure - Departure Time of Disposition: 21:37 Disposition: Refer to Observation Condition: Fair Clinical Impression: Syncope Qualifiers: Syncope type: unspecified Qualified Code(s): R55 - Syncope and collapse
[2018-10-14] MEDS ORDERED: Sodium Chloride 0.9% 1,000 ML IV SCH (22:45)
--- NOTE | 2018-10-14 23:00 | PCM.HP ---
H&P History of Present Illness - General Date of Service: 10/14/18 Admit Problem/Dx: Admission Diagnosis/Problem Admission Diagnosis/Problem Syncope and collapse Source of Information: Patient History Limitations: Reports: No Limitations - History of Present Illness Initial Comments - Free Text/Narative: Mat is a 73 y/o M who presented to te ER after a syncopal episode. He reports he was at the restaurant with friends when above happened. This happened after dinner. Patient said after eating he started feeling funny and the next thing he noted was he was on the floor. He could not tell how long he was out for but says it was brief. He denied jerky movement of the limbs, tongue bite, fecal or bladder incontinence. He denies headache, light headedness, chest pain, palpitation, SOB, diaphoresis. He has previous episode of similar syncope about 2 years ago. Evaluation was negative. He denies fever, chills, abdominal pain, diarrhea, N/V. No melena or hematochezia. No headache. In the ER he was apparently lethargic initially but became fully awake after IVF. Vitals was unremarkable. EKG showed LBBB with unchanged from previous. As per ER provider she discussed EKG findings with interior specialist at [facility] and there was no concern for STEMI. Troponin was negative. CT brain was negative. CXR mild pulmonary congestion. Patient is being admitted to the hospital for further evaluation. Onset of Symptoms: Reports: Sudden Duration of Symptoms: Reports: Hour(s): Location: Reports: Generalized, Other (syncope) Improves with: Reports: None Worsens with: Reports: None Associated Symptoms: Reports: No Other Symptoms - Related Data Allergies/Adverse Reactions: Allergies Allergy/AdvReac Type Severity Reaction Status Date / Time amoxicillin trihydrate Allergy unknown Verified 03/11/17 20:04 [From Augmentin] duloxetine HCl Allergy unknown Verified 03/11/17 20:04 [From Cymbalta] lamotrigine Allergy UNKNOWN Verified 03/11/17 20:04 methadone [Methadone] Allergy NAUSEA/VOMI Verified 03/11/17 20:04 TING/DIARRH EA phenytoin sodium Allergy Hives Verified 03/11/17 20:04 [From Dilantin] phenytoin sodium extended Allergy unknown Verified 03/11/17 20:04 [From Dilantin] potassium clavulanate Allergy unknown Verified 03/11/17 20:04 [From Augmentin] Home Medications: Home Meds Alfuzosin HCl [Alfuzosin HCl ER] 10 mg PO DAILY 10/14/18 [History] Baclofen 5 mg PO ACLUNCH 10/14/18 [History] Baclofen 10 mg PO BID 10/14/18 [History] Cetirizine HCl 10 mg PO BEDTIME 10/14/18 [History] Pregabalin [Lyrica] 200 mg PO TID 10/14/18 [History] Past Medical History HEENT History: Reports: Hard of Hearing, Impaired Vision, Other (See Below) Other HEENT History: 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 Gastrointestinal History: Reports: GERD Other Gastrointestinal History: ulcer Genitourinary History: Reports: Prostate Disorder Musculoskeletal History: Reports: Other (See Below) Other Musculoskeletal History: SLIGHTLY IMPAIRED MOBILITY TO RIGHT SIDE D/T BRAIN SURGERY; TRIGONOM NEUROPATHY PAIN Neurological History: Reports: Other (See Below) Other Neuro History: Trigeminal neuralgia, 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 Psychiatric History: Reports: Depression Endocrine/Metabolic History: Reports: Hypoparathyroidism Hematologic History: Reports: Iron Deficiency Oncologic (Cancer) History: Reports: Malignant Melanoma Dermatologic History: Reports: Other (See Below) Other Dermatologic History: RASH TO BACK OF HEAD, NECK, BUTTOCKS, AND LEFT ARM - Infectious Disease History Other Infectious Disease History: PATIENT CANNOT REMEMBER INFECTIOUS DISEASE BACKGROUND - Past Surgical History Head Surgeries/Procedures: Reports: Craniotomy HEENT Surgical History: Reports: Other (See Below) Cardiovascular Surgical History: Reports: None Respiratory Surgical History: Reports: None Neurological Surgical History: Reports: Other (See Below) Oncologic Surgical History: Reports: Other (See Below) Social & Family History - Family History Family Medical History: Noncontributory - Tobacco Use Smoking Status *Q: Never Smoker Second Hand Smoke Exposure: No - Caffeine Use Caffeine Use: Reports: Coffee - Recreational Drug Use Recreational Drug Use: No - Living Situation & Occupation Living situation: Reports: , with Spouse Occupation: Retired H&P Review of Systems - Review of Systems: Review Of Systems: See Below General: Reports: No Symptoms HEENT: Reports: No Symptoms Pulmonary: Reports: No Symptoms Cardiovascular: Reports: No Symptoms Gastrointestinal: Reports: No Symptoms Genitourinary: Reports: No Symptoms Musculoskeletal: Reports: No Symptoms Skin: Reports: No Symptoms Psychiatric: Reports: No Symptoms Neurological: Reports: No Symptoms Hematologic/Lymphatic: Reports: No Symptoms Immunologic: Reports: No Symptoms Exam - Exam Exam: See Below - Vital Signs Vital Signs: Last Vital Signs Temp 98.0 F 10/14/18 22:03 Pulse 71 10/14/18 22:03 Resp 20 10/14/18 22:03 BP 131/46 L 10/14/18 22:03 Pulse Ox 95 10/14/18 22:03 Weight: 190 lb 11.2 oz - Exam General: Alert, Oriented, 4 HEENT: PERRLA, Hearing Intact, Mucosa Moist & [place]onan, Nares Patent, Normal Nasal Septum, Posterior Pharynx Clear, Conjunctiva Clear, EOMI, EACs Clear, TMs Clear Neck: Supple, Trachea Midline, 2 Lungs: Clear to Auscultation, Normal Respiratory Effort Cardiovascular: Regular Rate, Regular Rhythm GI/Abdominal Exam: Normal Bowel Sounds, Soft, Non-Tender, No Organomegaly, No Distention, No Abnormal Bruit, No Mass, Pelvis Stable (Male) Exam: No Hernia, Normal Inspection, Normal Prostate, Circumcised Rectal (Males) Exam: Normal Exam, Normal Rectal Tone, Prostate Normal Back Exam: Normal Inspection, Full Range of Motion, NT Extremities: Normal Inspection, Normal Range of Motion, Non-Tender, No Pedal Edema, Normal Capillary Refill Skin: Warm, Dry, Intact Neurological: Cranial Nerves Intact, Reflexes Equal Bilateral Neuro Extensive - Mental Status: Alert, Oriented x3, Normal Mood/Affect, Normal Cognition Neuro Extensive - Motor, Sensory, Reflexes: CN II-XII Intact, Normal Gait, Normal Reflexes Psychiatric: Alert, Normal Affect, Normal Mood - Patient Data Lab Results Last 24 hrs: Laboratory Results - last 24 hr 10/14/18 10/14/18 10/14/18 Range/Units 20:00 20:00 20:00 WBC 5.1 (5.0-10.0) 10^3/uL RBC 4.45 L (4.6-6.2) 10^6/uL Hgb 14.0 (14.0-18.0) g/dL Hct 41.7 (40.0-54.0) % MCV 93.7 (80-100) fL MCH 31.5 (27.0-34.0) pg MCHC 33.6 (33.0-35.0) g/dL Plt Count 151 (150-450) 10^3/uL Neut % (Auto) 52.8 (42.2-75.2) % Lymph % (Auto) 28.3 (20.5-50.1) % [place] % (Auto) 16.3 H (2-8) % Eos % (Auto) 2.4 (1.0-3.0) % Baso % (Auto) 0.2 (0.0-1.0) % PT 9.8 (9.0-12.0) SEC INR 1.0 (0.9-1.2) Sodium 137 (135-145) mmol/L Potassium 3.3 L (3.6-5.0) mmol/L Chloride 104 (101-111) mmol/L Carbon Dioxide 24.0 (21.0-31.0) mmol/L Anion Gap 12.3 BUN 13 (7-18) mg/dL Creatinine 0.9 (0.6-1.3) mg/dL Est Cr Clr Drug Dosing TNP Estimated GFR (MDRD) > 60 BUN/Creatinine Ratio 14.44 Glucose 129 H (74-105) mg/dL Calcium 7.7 L (8.4-10.2) mg/dl Total Bilirubin 0.5 (0.2-1.0) mg/dL AST 23 (10-42) IU/L ALT 16 (10-60) IU/L Alkaline Phosphatase 85 (42-121) IU/L Troponin I < 0.02 (0.00-0.02) ng/ml Total Protein 5.9 L (6.7-8.2) g/dl Albumin 3.6 (3.2-5.5) g/dl Globulin 2.3 Albumin/Globulin Ratio 1.57 Result Diagrams: 10/14/18 20:00 10/14/18 20:00 - Problem List (1) Pulmonary congestion SNOMED Code(s): 10214904 ICD Code: R09.89 - OTH SYMPTOMS AND SIGNS INVOLVING THE CIRC AND RESP SYSTEMS Status: Acute Current Visit: Yes (2) Syncope SNOMED Code(s): 602089746 ICD Code: R55 - SYNCOPE AND COLLAPSE Status: Acute Current Visit: Yes Qualifiers: Syncope type: unspecified Qualified Code(s): R55 - Syncope and collapse (3) Abrasions of multiple sites SNOMED Code(s): 471297899, 464397078 ICD Code: T14.8 - OTHER INJURY OF UNSPECIFIED BODY REGION * DO NOT USE * Status: Acute Current Visit: No (4) Hypokalemia SNOMED Code(s): 56472591 ICD Code: E87.6 - HYPOKALEMIA Status: Acute Current Visit: Yes Problem List Initiated/Reviewed/Updated: Yes Orders Last 24hrs: Active Orders 24 hr Category Date Time Status Patient Status [ADT] Routine ADT 10/14/18 22:35 Ordered Ambulate [RC] ASDIRECTED Care 10/14/18 22:34 Ordered Antiembolic Devices [RC] .Routine Care 10/14/18 22:37 Ordered Intake and Output [RC] QSHIFT Care 10/14/18 22:36 Ordered Notify Provider Vital Signs [RC] ASDIRECTED Care 10/14/18 22:36 Ordered Oxygen Therapy [RC] PRN Care 10/14/18 22:36 Ordered Peripheral IV Care [RC] . DIRECTED Care 10/14/18 19:54 Active Telemetry Monitoring [Cardiac Monitoring] [RC] . Care 10/14/18 22:43 Ordered DIRECTED VTE/DVT Education [RC] PER UNIT ROUTINE Care 10/14/18 22:37 Ordered Vital Signs [RC] Q4H Care 10/14/18 22:35 Ordered 2 Gram Sodium Diet [DIET] Diet 10/14/18 Breakfast Ordered Echo Ltd [US] Routine Exams 10/14/18 22:42 Ordered BASIC METABOLIC PANEL,BMP [CHEM] AM Lab 10/15/18 05:11 Ordered Heparin Sodium Med 10/14/18 22:45 Ordered 5,000 units SUBCUT Q12H Potassium Chloride [KCl 10 MEQ in Water 100 ML] 10 meq Med 10/14/18 22:45 Ordered Premix Bag 1 bag IV Q2H Sodium Chloride 0.9% @ 75 MLS/HR(1000ml) Med 10/14/18 22:45 Ordered Sodium Chloride 0.9% [Normal Saline] 1,000 ml IV ASDIRECTED Sodium Chloride 0.9% [Saline Flush] Med 10/14/18 19:54 Active 10 ml FLUSH ASDIRECTED PRN DVT/VTE Prophylaxis Reflex [OM.PC] Routine Oth 10/14/18 22:34 Ordered Peripheral IV Insertion Adult [OM.PC] Stat Oth 04/11/19 19:54 Ordered Resuscitation Status Routine Resus Stat 10/14/18 22:34 Ordered Medication Orders Heparin Sodium (Porcine) (Heparin Sodium) 5,000 units SUBCUT Q12H RODNEY Potassium Chloride 10 meq/ (Premix) 100 mls @ 100 mls/hr IV Q2H RODNEY Stop: 10/15/18 03:44 Sodium Chloride (Normal Saline) 1,000 mls @ 75 mls/hr IV ASDIRECTED RODNEY Sodium Chloride (Saline Flush) 10 ml FLUSH ASDIRECTED PRN PRN Reason: Keep Vein Open Last Admin: 10/14/18 20:15 Dose: 10 ml Assessment/Plan Comment:: 73 y/o male presenting following a syncopal episode. This occurred after a dinner at a restaurant. He denied any prodrome. EKG showed LBBB unchanged from previous. CXr showed mild pulmonary congestion. CT brain was negative. Syncope and collapse Likely vasovagal vs cardiac vs post prandial syncope He is hemodynamically stable Admit to general medical floors Monitor vitals Monitor on tele IVF Orthostatic vitals Echo in the AM will need carotic vascular US Fall precautions Hypokalemia Replace IV Cardiac diet Full code
[2018-10-14] MEDS ORDERED: CETIRIZINE 10 MG PO SCH (23:30)
[2018-10-14] MEDS: Potassium Chloride 10 MEQ in Premix Bag 1 BAG IV SCH (23:42)
[2018-10-14] MEDS: Heparin Sodium 5,000 Units/ML Vial SUBCUT SCH (23:46)
[2018-10-14] MEDS: PREGABALIN 200 MG PO SCH (23:47)
[2018-10-14] MEDS: Baclofen 10 MG Tab **OWN MED PO SCH (23:47)
[2018-10-15] MEDS: Potassium Chloride 10 MEQ in Premix Bag 1 BAG IV SCH ×2 (00:49→01:50)
[2018-10-15 07:13] LABS: ANION GAP 11.6; CHLORIDE,CL 107 mmol/L (101-111); SODIUM,NA 138 mmol/L (135-145)
[2018-10-15] MEDS ORDERED: ALFUZOSIN 10 MG PO SCH (09:00)
--- NOTE | 2018-10-15 10:31 | PCM.DCSUM1 ---
Discharge Summary - Hospital Course Free Text/Narrative:: Mat is a 73 y/o M who presented to ER after a syncopal episode. He was admitted for further evaluation. EKG showed LBBB with unchanged from previous. As per ER provider she discussed EKG findings with senior qc technician at [facility] and there was no concern for STEMI. Troponin was negative. CT brain was negative. CXR mild pulmonary congestion. He had echo done this morning. EF was normal. Official report pending. He has not had anymore syncope since admission. Patient is being discharge in a stable condition. He will follow up with PCP. He will require a cardiology appointment and I recommend PCP make this appointment after follow up. Diagnosis: Stroke: No - Discharge Data Discharge Date: 10/15/18 Discharge Disposition: Home, Self-Care 01 Condition: Good - Discharge Diagnosis/Problem(s) (1) Pulmonary congestion SNOMED Code(s): 94748551 ICD Code: R09.89 - OTH SYMPTOMS AND SIGNS INVOLVING THE CIRC AND RESP SYSTEMS Status: Acute Current Visit: Yes (2) Syncope SNOMED Code(s): 451969553 ICD Code: R55 - SYNCOPE AND COLLAPSE Status: Acute Current Visit: Yes Qualifiers: Syncope type: unspecified Qualified Code(s): R55 - Syncope and collapse (3) Abrasions of multiple sites SNOMED Code(s): 178480275, 112531938 ICD Code: T14.8 - OTHER INJURY OF UNSPECIFIED BODY REGION * DO NOT USE * Status: Acute Current Visit: No (4) Hypokalemia SNOMED Code(s): 17533066 ICD Code: E87.6 - HYPOKALEMIA Status: Acute Current Visit: Yes - Discharge Plan *PRESCRIPTION DRUG MONITORING PROGRAM REVIEWED*: Not Applicable Prescriptions/Med Rec: levoFLOXacin [Levaquin] 500 mg PO DAILY #5 tab Home Medications: Home Meds Alfuzosin HCl [Alfuzosin HCl ER] 10 mg PO DAILY 10/14/18 [History] Baclofen 5 mg PO ACLUNCH 10/14/18 [History] Baclofen 10 mg PO BID 10/14/18 [History] Cetirizine HCl 10 mg PO BEDTIME 10/14/18 [History] Pregabalin [Lyrica] 200 mg PO TID 10/14/18 [History] levoFLOXacin [Levaquin] 500 mg PO DAILY #5 tab 10/15/18 [Rx] Oxygen Therapy Mode: Room Air Patient Handouts: Levofloxacin tablets, Syncope, [id number] Referrals: PCP,None [Primary Care Provider] - - Discharge Summary/Plan Comment DC Time >30 min.: Yes - General Info Admission Dx/Problem (Free Text: Admission Diagnosis/Problem Admission Diagnosis/Problem Syncope and collapse Functional Status: Reports: Pain Controlled - Review of Systems General: Reports: No Symptoms HEENT: Reports: No Symptoms Pulmonary: Reports: No Symptoms Cardiovascular: Reports: No Symptoms Gastrointestinal: Reports: No Symptoms Genitourinary: Reports: No Symptoms Musculoskeletal: Reports: No Symptoms Skin: Reports: No Symptoms Neurological: Reports: No Symptoms Psychiatric: Reports: No Symptoms - Patient Data Vitals - Most Recent: Last Vital Signs Temp 98.5 F 10/15/18 07:33 Pulse 62 10/15/18 07:33 Resp 20 10/15/18 07:33 BP 124/51 L 10/15/18 07:33 Pulse Ox 93 L 10/15/18 07:33 Weight - Most Recent: 190 lb 11.2 oz I&O - Last 24 hours: Intake & Output 10/14/18 10/15/18 10/15/18 22:59 06:59 14:59 Intake Total 297 490 Output Total 700 Balance 297 -210 Lab Results - Last 24 hrs: Laboratory Results - last 24 hr 10/14/18 10/14/18 10/14/18 Range/Units 20:00 20:00 20:00 WBC 5.1 (5.0-10.0) 10^3/uL RBC 4.45 L (4.6-6.2) 10^6/uL Hgb 14.0 (14.0-18.0) g/dL Hct 41.7 (40.0-54.0) % MCV 93.7 (80-100) fL MCH 31.5 (27.0-34.0) pg MCHC 33.6 (33.0-35.0) g/dL Plt Count 151 (150-450) 10^3/uL Neut % (Auto) 52.8 (42.2-75.2) % Lymph % (Auto) 28.3 (20.5-50.1) % [place] % (Auto) 16.3 H (2-8) % Eos % (Auto) 2.4 (1.0-3.0) % Baso % (Auto) 0.2 (0.0-1.0) % PT 9.8 (9.0-12.0) SEC INR 1.0 (0.9-1.2) Sodium 137 (135-145) mmol/L Potassium 3.3 L (3.6-5.0) mmol/L Chloride 104 (101-111) mmol/L Carbon Dioxide 24.0 (21.0-31.0) mmol/L Anion Gap 12.3 BUN 13 (7-18) mg/dL Creatinine 0.9 (0.6-1.3) mg/dL Est Cr Clr Drug Dosing TNP Estimated GFR (MDRD) > 60 BUN/Creatinine Ratio 14.44 Glucose 129 H (74-105) mg/dL Calcium 7.7 L (8.4-10.2) mg/dl Total Bilirubin 0.5 (0.2-1.0) mg/dL AST 23 (10-42) IU/L ALT 16 (10-60) IU/L Alkaline Phosphatase 85 (42-121) IU/L Troponin I < 0.02 (0.00-0.02) ng/ml Total Protein 5.9 L (6.7-8.2) g/dl Albumin 3.6 (3.2-5.5) g/dl Globulin 2.3 Albumin/Globulin Ratio 1.57 // Range/Units 06:18 WBC (5.0-10.0) 10^3/uL RBC (4.6-6.2) 10^6/uL Hgb (14.0-18.0) g/dL Hct (40.0-54.0) % MCV (80-100) fL MCH (27.0-34.0) pg MCHC (33.0-35.0) g/dL Plt Count (150-450) 10^3/uL Neut % (Auto) (42.2-75.2) % Lymph % (Auto) (20.5-50.1) % [place] % (Auto) (2-8) % Eos % (Auto) (1.0-3.0) % Baso % (Auto) (0.0-1.0) % PT (9.0-12.0) SEC INR (0.9-1.2) Sodium 138 (135-145) mmol/L Potassium 4.6 (3.6-5.0) mmol/L Chloride 107 (101-111) mmol/L Carbon Dioxide 24.0 (21.0-31.0) mmol/L Anion Gap 11.6 BUN 12 (7-18) mg/dL Creatinine 0.8 (0.6-1.3) mg/dL Est Cr Clr Drug Dosing 75.32 Estimated GFR (MDRD) > 60 BUN/Creatinine Ratio Glucose 96 (74-105) mg/dL Calcium 7.7 L (8.4-10.2) mg/dl Total Bilirubin (0.2-1.0) mg/dL AST (10-42) IU/L ALT (10-60) IU/L Alkaline Phosphatase (42-121) IU/L Troponin I (0.00-0.02) ng/ml Total Protein (6.7-8.2) g/dl Albumin (3.2-5.5) g/dl Globulin Albumin/Globulin Ratio Med Orders - Current: Current Medications Baclofen (Lioresal) 5 mg PO ACLUNCH [facility] Baclofen (Lioresal) 10 mg PO BID [facility] Last Admin: 10/14/18 23:47 Dose: 10 mg Heparin Sodium (Porcine) (Heparin Sodium) 5,000 units SUBCUT Q12H [facility] Last Admin: 10/14/18 23:46 Dose: 5,000 units Sodium Chloride (Normal Saline) 1,000 mls @ 75 mls/hr IV ASDIRECTED [facility] Last Infusion: 10/15/18 10:21 Dose: 75 mls/hr Alfuzosin 10 Mg Sa (Tabs Own Med) 0 mg PO DAILY [facility] Cetirizine 10 Mg (Own Med) 0 mg PO BEDTIME [facility] Last Admin: 10/14/18 23:47 Dose: 10 mg Pregabalin 200 Mg (Capsules Own Med) 0 mg PO TID [facility] Last Admin: 10/14/18 23:47 Dose: 200 mg Sodium Chloride (Saline Flush) 10 ml FLUSH ASDIRECTED PRN PRN Reason: Keep Vein Open Last Admin: 10/14/18 20:15 Dose: 10 ml Discontinued Medications Lactated Ringer's (Ringers, Lactated) 1,000 mls @ 999 mls/hr IV .BOLUS ONE Stop: 10/14/18 21:15 Last Admin: 10/14/18 20:16 Dose: 999 mls/hr Potassium Chloride 10 meq/ (Premix) 100 mls @ 100 mls/hr IV Q1H RODNEY Stop: 10/15/18 01:44 Last Admin: 10/15/18 01:50 Dose: 100 mls/hr - Exam General: Reports: Alert, Oriented HEENT: Reports: Pupils Equal, Pupils Reactive, EOMI, Mucous Membr. Moist/[place] Neck: Reports: Supple Lungs: Reports: Clear to Auscultation, Normal Respiratory Effort Cardiovascular: Reports: Regular Rate, Regular Rhythm GI/Abdominal Exam: Normal Bowel Sounds, Soft, Non-Tender, No Organomegaly, No Distention, No Abnormal Bruit, No Mass, Pelvis Stable (Male) Exam: No Hernia, Normal Inspection, Normal Prostate, Circumcised Rectal (Males) Exam: Normal Exam, Normal Rectal Tone, Prostate Normal Back Exam: Reports: Normal Inspection, Full Range of Motion Extremities: Normal Inspection, Normal Range of Motion, Non-Tender, No Pedal Edema, Normal Capillary Refill Skin: Reports: Warm, Dry, Intact Wound/Incisions: Reports: Healing Well Neurological: Reports: No New Focal Deficit Psy/Mental Status: Reports: Alert, Normal Affect, Normal Mood
[2018-10-15] MEDS: Baclofen 10 MG Tab **OWN MED PO SCH (10:43)
[2018-10-15] MEDS: PREGABALIN 200 MG PO SCH (10:43)
[2018-10-15] MEDS: Heparin Sodium 5,000 Units/ML Vial SUBCUT SCH (10:51)
[2018-10-15] MEDS ORDERED: Baclofen 10 MG Tab **OWN MED PO SCH (11:00)
[2018-10-15 11:42] VITALS: BP 136/69
== END 2018-10-15 12:30 | disposition home or self-care (01) ==
LOC: DL.ED 19:58 → DL.MS 21:43 → UNDOADMOB 21:43 → DL.MS 22:35
PROVIDERS: ADMIT Student in an Organized Health Care Education/Training Program; ATTEND Student in an Organized Health Care Education/Training Program
DX: R55 Syncope and collapse (principal); I44.7 Left bundle-branch block, unspecified; E87.6 Hypokalemia; R09.89 Other specified symptoms and signs involving the circulatory and respiratory systems; T14.8XXA Other injury of unspecified body region, initial encounter; X58.XXXA Exposure to other specified factors, initial encounter; Z88.0 Allergy status to penicillin; Z88.8 Allergy status to other drugs, medicaments and biological substances; Z79.899 Other long term (current) drug therapy
CPT/HCPCS: 36415; 70450; 71045; 80048; 80053; 84484; 85025; 85610; 93005; 93306; 96365; 99285; A9270; J1644; J3480; J7030; J7120

== ENCOUNTER 2018-11-11 23:48 | Emergency (ER) | payer MEDICARE, BC ==
[2018-11-12 00:03] VITALS: BP 137/81
--- NOTE | 2018-11-12 00:22 | EDM.PDOC ---
ED HPI GENERAL MEDICAL PROBLEM - General Chief Complaint: General Stated Complaint: NOT FEELING WELL [id number] Time Seen by Provider: 11/12/18 00:00 Source of Information: Reports: Patient History Limitations: Reports: No Limitations - History of Present Illness INITIAL COMMENTS - FREE TEXT/NARRATIVE: This 73 yo male patient reports to the ED with dizziness. The patient reports his dizziness started this evening and comes with any movement. The patient reports he did have an episode of syncope about 1 month ago. The patient denies any chest pain at this time. Onset: Today Duration: Hour(s):, Recurring (with movement) Location: Reports: Generalized Quality: Reports: Other Severity: Moderate Improves with: Reports: Rest Worsens with: Reports: Movement Associated Symptoms: Reports: No Other Symptoms - Related Data Allergies Allergy/AdvReac Type Severity Reaction Status Date / Time amoxicillin trihydrate Allergy unknown Verified 11/11/18 23:58 [From Augmentin] duloxetine HCl Allergy unknown Verified 11/11/18 23:58 [From Cymbalta] lamotrigine Allergy UNKNOWN Verified 11/11/18 23:58 methadone [Methadone] Allergy NAUSEA/VOMI Verified 11/11/18 23:58 TING/DIARRH EA phenytoin sodium Allergy Hives Verified 11/11/18 23:58 [From Dilantin] phenytoin sodium extended Allergy unknown Verified 11/11/18 23:58 [From Dilantin] potassium clavulanate Allergy unknown Verified 11/11/18 23:58 [From Augmentin] Home Meds: Home Meds Alfuzosin HCl [Alfuzosin HCl ER] 10 mg PO DAILY 10/14/18 [History] Baclofen 10 mg PO BID 10/14/18 [History] Cetirizine HCl 10 mg PO BEDTIME 10/14/18 [History] Pregabalin [Lyrica] 200 mg PO TID 10/14/18 [History] Baclofen 15 mg PO ACLUNCH 11/12/18 [History] carBAMazepine [Carbamazepine ER] 400 mg pe PO BID 11/12/18 [History] Past Medical History HEENT History: Reports: Hard of Hearing, Impaired Vision, Other (See Below) Other HEENT History: 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 Gastrointestinal History: Reports: GERD Other Gastrointestinal History: ulcer Genitourinary History: Reports: Prostate Disorder Musculoskeletal History: Reports: Other (See Below) Other Musculoskeletal History: SLIGHTLY IMPAIRED MOBILITY TO RIGHT SIDE D/T BRAIN SURGERY; TRIGONOM NEUROPATHY PAIN Neurological History: Reports: Other (See Below) Other Neuro History: Trigeminal neuralgia, 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 Psychiatric History: Reports: Depression Endocrine/Metabolic History: Reports: Hypoparathyroidism Hematologic History: Reports: Iron Deficiency Oncologic (Cancer) History: Reports: Malignant Melanoma Dermatologic History: Reports: Other (See Below) Other Dermatologic History: RASH TO BACK OF HEAD, NECK, BUTTOCKS, AND LEFT ARM - Infectious Disease History Other Infectious Disease History: PATIENT CANNOT REMEMBER INFECTIOUS DISEASE BACKGROUND - Past Surgical History Head Surgeries/Procedures: Reports: Craniotomy HEENT Surgical History: Reports: Other (See Below) Cardiovascular Surgical History: Reports: None Respiratory Surgical History: Reports: None Neurological Surgical History: Reports: Other (See Below) Oncologic Surgical History: Reports: Other (See Below) Social & Family History - Family History Family Medical History: Noncontributory - Tobacco Use Smoking Status *Q: Former Smoker Used Tobacco, but Quit: Yes Month/Year Tobacco Last Used: 12/1991 Second Hand Smoke Exposure: Yes - Caffeine Use Caffeine Use: Reports: None - Recreational Drug Use Recreational Drug Use: No - Living Situation & Occupation Living situation: Reports: , with Spouse Occupation: Retired ED ROS GENERAL - Review of Systems Review Of Systems: ROS reveals no pertinent complaints other than HPI. ED EXAM, GENERAL - Physical Exam Exam: See Below Exam Limited By: No Limitations General Appearance: Alert, WD/WN, Moderate Distress Eye Exam: Bilateral Eye: EOMI, Normal Inspection, PERRL Ears: Normal External Exam, Normal Canal, Hearing Grossly Normal, Normal TMs Nose: Normal Inspection, Normal Mucosa, No Blood Throat/Mouth: Normal Inspection, Normal Lips, Normal Teeth, Normal Gums, Normal Oropharynx, Normal Voice, No Airway Compromise Head: Atraumatic, Normocephalic Neck: Normal Inspection, Supple, Non-Tender, Full Range of Motion Respiratory/Chest: No Respiratory Distress, Lungs Clear, Normal Breath Sounds, No Accessory Muscle Use, Chest Non-Tender Cardiovascular: Normal Peripheral Pulses, Regular Rate, Rhythm, No Edema, No Gallop, No JVD, No Murmur, No Rub GI/Abdominal: Normal Bowel Sounds, Soft, Non-Tender, No Organomegaly, No Distention, No Abnormal Bruit, No Mass (Male) Exam: Deferred Rectal (Males) Exam: Deferred Back Exam: Normal Inspection, Full Range of Motion, NT Extremities: Normal Inspection, Normal Range of Motion, Non-Tender, Normal Capillary Refill, No Pedal Edema Neurological: Alert, Oriented, CN II-XII Intact, Normal Cognition, Normal Gait, Normal Reflexes, No Motor/Sensory Deficits Psychiatric: Normal Affect, Normal Mood Skin Exam: Warm, Dry, Intact, Normal Color, No Rash Lymphatic: No Adenopathy Course - Vital Signs Last Recorded V/S: Last Vital Signs Temp 36.3 C 11/11/18 23:58 Pulse 69 11/11/18 23:58 Resp 20 11/11/18 23:58 BP 137/81 11/11/18 23:58 Pulse Ox 94 L 11/11/18 23:58 - Orders/Labs/Meds Orders: Active Orders 24 hr Category Date Time Status EKG Documentation Completion [RC] URGENT Care 11/12/18 00:02 Active Labs: Laboratory Tests 11/12/18 11/12/18 11/12/18 Range/Units 00:11 00:11 00:11 WBC 3.7 L (5.0-10.0) 10^3/uL RBC 4.53 L (4.6-6.2) 10^6/uL Hgb 14.4 (14.0-18.0) g/dL Hct 42.3 (40.0-54.0) % MCV 93.4 (80-100) fL MCH 31.8 (27.0-34.0) pg MCHC 34.0 (33.0-35.0) g/dL Plt Count 140 L (150-450) 10^3/uL Neut % (Auto) 65.5 (42.2-75.2) % Lymph % (Auto) 19.3 L (20.5-50.1) % Stoddard % (Auto) 12.5 H (2-8) % Eos % (Auto) 2.7 (1.0-3.0) % Baso % (Auto) 0.0 (0.0-1.0) % Sodium (135-145) mmol/L Potassium (3.6-5.0) mmol/L Chloride (101-111) mmol/L Carbon Dioxide (21.0-31.0) mmol/L Anion Gap BUN (7-18) mg/dL Creatinine (0.6-1.3) mg/dL Est Cr Clr Drug Dosing mL/min Estimated GFR (MDRD) BUN/Creatinine Ratio Glucose (74-105) mg/dL Calcium (8.4-10.2) mg/dl Total Bilirubin (0.2-1.0) mg/dL AST (10-42) IU/L ALT (10-60) IU/L Alkaline Phosphatase (42-121) IU/L Creatine Kinase 76 (26-174) IU/L Creatine Kinase Index 3.3 H (0-2.4) % CK-MB (CK-2) 2.50 (0.4-4.7) ng/mL Troponin I < 0.01 (0.00-0.02) ng/ml Total Protein (6.7-8.2) g/dl Albumin (3.2-5.5) g/dl Globulin Albumin/Globulin Ratio Urine Color (YELLOW) Urine Appearance (CLEAR) Urine pH (5.0-9.0) Ur Specific Pooler (1.005-1.030) Urine Protein (NEGATIVE) Urine Glucose (UA) (NEGATIVE) Urine Ketones (NEGATIVE) Urine Occult Blood (NEGATIVE) Urine Nitrite (NEGATIVE) Urine Bilirubin (NEGATIVE) Urine Urobilinogen (0.2-1.0) mg/dL Ur Leukocyte Esterase (NEGATIVE) 11/12/18 11/12/18 Range/Units 00:17 02:24 WBC (5.0-10.0) 10^3/uL RBC (4.6-6.2) 10^6/uL Hgb (14.0-18.0) g/dL Hct (40.0-54.0) % MCV (80-100) fL MCH (27.0-34.0) pg MCHC (33.0-35.0) g/dL Plt Count (150-450) 10^3/uL Neut % (Auto) (42.2-75.2) % Lymph % (Auto) (20.5-50.1) % [place] % (Auto) (2-8) % Eos % (Auto) (1.0-3.0) % Baso % (Auto) (0.0-1.0) % Sodium 131 L (135-145) mmol/L Potassium 4.0 (3.6-5.0) mmol/L Chloride 99 L (101-111) mmol/L Carbon Dioxide 23.0 (21.0-31.0) mmol/L Anion Gap 13.0 BUN 13 (7-18) mg/dL Creatinine 0.7 (0.6-1.3) mg/dL Est Cr Clr Drug Dosing 86.08 mL/min Estimated GFR (MDRD) > 60 BUN/Creatinine Ratio 18.57 Glucose 117 H (74-105) mg/dL Calcium 7.8 L (8.4-10.2) mg/dl Total Bilirubin 0.9 (0.2-1.0) mg/dL AST 24 (10-42) IU/L ALT 18 (10-60) IU/L Alkaline Phosphatase 92 (42-121) IU/L Creatine Kinase (26-174) IU/L Creatine Kinase Index (0-2.4) % CK-MB (CK-2) (0.4-4.7) ng/mL Troponin I (0.00-0.02) ng/ml Total Protein 6.3 L (6.7-8.2) g/dl Albumin 3.9 (3.2-5.5) g/dl Globulin 2.4 Albumin/Globulin Ratio 1.63 Urine Color Yellow (YELLOW) Urine Appearance Clear (CLEAR) Urine pH 7.5 (5.0-9.0) Ur Specific Pooler 1.015 (1.005-1.030) Urine Protein Negative (NEGATIVE) Urine Glucose (UA) Negative (NEGATIVE) Urine Ketones 15 H (NEGATIVE) Urine Occult Blood Negative (NEGATIVE) Urine Nitrite Negative (NEGATIVE) Urine Bilirubin Negative (NEGATIVE) Urine Urobilinogen 0.2 (0.2-1.0) mg/dL Ur Leukocyte Esterase Negative (NEGATIVE) Meds: Medications Discontinued Medications Generic Name Dose Route Start Last Admin Trade Name Freq PRN Reason Stop Dose Admin Meclizine HCl 12.5 mg 11/12/18 01:12 11/12/18 01:19 Antivert PO 11/12/18 01:13 12.5 mg ONETIME ONE Administration Departure - Departure Time of Disposition: 02:39 Disposition: Home, Self-Care 01 Condition: Fair Clinical Impression: Vertigo, Dizziness - Discharge Information *PRESCRIPTION DRUG MONITORING PROGRAM REVIEWED*: Not Applicable *COPY OF PRESCRIPTION DRUG MONITORING REPORT IN PATIENT APOLINAR: Not Applicable Instructions: Dizziness, [id number], Vertigo, [id number] Forms: ED Department Discharge Care Plan Goals: The patient was advised of the examination, lab, EKG, head CT and chest x-ray results during the visit. The patient was able to walk around the emergency department without assistance during the visit. The patient was encouraged to rest and relax over the next 24 hours. If the patient has any additional symptoms or concerns, the patient should either return to the emergency department or visit his primary care facility. - My Orders Last 24 Hours: My Active Orders 11/12/18 00:02 EKG Documentation Completion [RC] URGENT - Assessment/Plan Last 24 Hours: My Active Orders 11/12/18 00:02 EKG Documentation Completion [RC] URGENT
[2018-11-12 00:45] LABS: CHLORIDE,CL 99 mmol/L (101-111); SODIUM,NA 131 mmol/L (135-145)
[2018-11-12] MEDS ORDERED: Meclizine 12.5 MG Tab PO ONE (01:12)
== END 2018-11-12 03:03 | disposition home or self-care (01) ==
LOC: DL.ED 23:48
DX: R42 Dizziness and giddiness (principal); K21.9 Gastro-esophageal reflux disease without esophagitis; F32.9 Major depressive disorder, single episode, unspecified; Z87.891 Personal history of nicotine dependence; Z88.1 Allergy status to other antibiotic agents; Z88.8 Allergy status to other drugs, medicaments and biological substances; Z79.899 Other long term (current) drug therapy
CPT/HCPCS: 36415; 70450; 71045; 80053; 81003; 82550; 82553; 84484; 85025; 93005; 99284; A9270

== ENCOUNTER 2018-12-14 11:28 | Emergency (ER) | payer MEDICARE, BC ==
--- NOTE | 2018-12-14 12:04 | EDM.PDOC ---
<Aarti Atkins - Last Filed: 12/14/18 12:59> ED HPI GENERAL MEDICAL PROBLEM - General Chief Complaint: Laceration Stated Complaint: CUT FINGER LEFT HAND Time Seen by Provider: 12/14/18 11:50 Source of Information: Reports: Patient, Old Records History Limitations: Reports: No Limitations - History of Present Illness INITIAL COMMENTS - FREE TEXT/NARRATIVE: Patient presents to ER for CC of laceration to left thumb. Patient states that he was cutting floor tile when his knife slipped. Patient "thinks ([facility]) [facility]"; 03/2017 per record. While patient was being evaluated and finger laceration cleaned, patient experienced syncopal episode. Patient remained conscious throughout event, however states he was "very tired, wanted to sleep". HR lowest was 29, hypotensive at 53/33. Patient was diaphoretic and pale in color. Patient was placed in supine position with legs elevated on pillows. IV established and NS bolus initiated. Episode lasted approximately 10-12 minutes, became more alert over time. Patient states that "sometimes (he) passes out" and has been seen for this. Patient reports that he has also been evaluated by a cellar pumper, but they "didn't find anything". Patient states that his last syncopal episode was 2 months ago, previously to that it was the month prior to that. Patient denies any chest pain, shortness of breath, or any recent illness. Onset: Today Onset Date: 12/14/18 Left Hand Pain Score (Numeric/FACES): 6 - Related Data Allergies Allergy/AdvReac Type Severity Reaction Status Date / Time amoxicillin trihydrate Allergy unknown Verified 12/14/18 11:50 [From Augmentin] duloxetine HCl Allergy unknown Verified 12/14/18 11:50 [From Cymbalta] lamotrigine Allergy UNKNOWN Verified 12/14/18 11:50 methadone [Methadone] Allergy NAUSEA/VOMI Verified 12/14/18 11:50 TING/DIARRH EA phenytoin sodium Allergy Hives Verified 12/14/18 11:50 [From Dilantin] phenytoin sodium extended Allergy unknown Verified 12/14/18 11:50 [From Dilantin] potassium clavulanate Allergy unknown Verified 12/14/18 11:50 [From Augmentin] Home Meds: Home Meds Alfuzosin HCl [Alfuzosin HCl ER] 10 mg PO DAILY 10/14/18 [History] Baclofen 10 mg PO BID 10/14/18 [History] Cetirizine HCl 10 mg PO BEDTIME 10/14/18 [History] Pregabalin [Lyrica] 200 mg PO TID 10/14/18 [History] Baclofen 10 mg PO ACLUNCH 11/12/18 [History] carBAMazepine [Carbamazepine ER] 400 mg pe PO BID 11/12/18 [History] Past Medical History HEENT History: Reports: Hard of Hearing, Impaired Vision, Other (See Below) Other HEENT History: 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 Gastrointestinal History: Reports: GERD Other Gastrointestinal History: ulcer Genitourinary History: Reports: Prostate Disorder Musculoskeletal History: Reports: Other (See Below) Other Musculoskeletal History: SLIGHTLY IMPAIRED MOBILITY TO RIGHT SIDE D/T BRAIN SURGERY; TRIGONOM NEUROPATHY PAIN Neurological History: Reports: Other (See Below) Other Neuro History: Trigeminal neuralgia, 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 Psychiatric History: Reports: Depression Endocrine/Metabolic History: Reports: Hypoparathyroidism Hematologic History: Reports: Iron Deficiency Oncologic (Cancer) History: Reports: Malignant Melanoma Dermatologic History: Reports: Other (See Below) Other Dermatologic History: RASH TO BACK OF HEAD, NECK, BUTTOCKS, AND LEFT ARM - Infectious Disease History Other Infectious Disease History: PATIENT CANNOT REMEMBER INFECTIOUS DISEASE BACKGROUND - Past Surgical History Head Surgeries/Procedures: Reports: Craniotomy HEENT Surgical History: Reports: Other (See Below) Cardiovascular Surgical History: Reports: None Respiratory Surgical History: Reports: None Neurological Surgical History: Reports: Other (See Below) Oncologic Surgical History: Reports: Other (See Below) Social & Family History - Family History Family Medical History: Noncontributory - Caffeine Use Caffeine Use: Reports: None - Living Situation & Occupation Living situation: Reports: , with Spouse Occupation: Retired ED ROS GENERAL - Review of Systems Review Of Systems: ROS reveals no pertinent complaints other than HPI. ED EXAM, SKIN/RASH Exam: See Below Exam Limited By: No Limitations General Appearance: Alert (s/p syncopal episode), WD/WN, No Apparent Distress Eye Exam: Bilateral Eye: EOMI, Normal Fundi, Normal Inspection, PERRL Ears: Normal External Exam, Normal Canal, Hearing Grossly Normal, Normal TMs Nose: Normal Inspection, Normal Mucosa, No Blood Throat/Mouth: Normal Inspection, Normal Lips, Normal Teeth, Normal Gums, Normal Oropharynx, Normal Voice, No Airway Compromise Head: Atraumatic, Normocephalic Neck: Normal Inspection, Supple, Non-Tender, Full Range of Motion Respiratory/Chest: No Respiratory Distress, Lungs Clear, Normal Breath Sounds, No Accessory Muscle Use, Chest Non-Tender Cardiovascular: Normal Peripheral Pulses, Regular Rate, Rhythm, No Edema, No Gallop, No JVD, No Murmur, No Rub GI/Abdominal: Normal Bowel Sounds, Soft, Non-Tender, No Organomegaly, No Distention, No Abnormal Bruit, No Mass Back Exam: Normal Inspection, Full Range of Motion, NT Extremities: Normal Inspection, Normal Range of Motion, Non-Tender, No Pedal Edema, Normal Capillary Refill Neurological: Alert, Oriented, CN II-XII Intact, Normal Cognition, Normal Reflexes, No Motor/Sensory Deficits Psychiatric: Normal Affect, Normal Mood Skin: Warm, Dry, No Rash. No: Intact (soft tissue avulsion, approx 1.25 x 0.5 cm, to lateral aspect of left thumb ), Normal Color (pallor s/p syncopal episode ) ED SKIN PROCEDURES - Additional/Other Procedure(s) Other (Free Text) Procedure(s): Left thumb injury- soft tissue avulsion, with mild active bleeding. Controlled by direct pressure. No procedural wound closure required. EKG INTERPRETATION EKG Date: 12/14/18 Time: 11:58 Rhythm: Other (Sinus karen, first degree AV block, left BBB (unchanged from prior EKG)) Revere: Normal P-Wave: Present QRS: Normal ST-T: Normal QT: Normal Comparison: No Change Course - Vital Signs Last Recorded V/S: Last Vital Signs Temp Pulse 70 12/14/18 12:18 Resp 16 12/14/18 12:18 BP 114/61 12/14/18 12:18 Pulse Ox 93 L 12/14/18 12:18 - Orders/Labs/Meds Orders: Active Orders 24 hr Category Date Time Status Blood Glucose Check, Bedside [RC] ONETIME Care 12/14/18 12:14 Active EKG 12 Lead [EKG Documentation Completion] [RC] STAT Care 12/14/18 12:13 Active Peripheral IV Care [RC] . DIRECTED Care 12/14/18 12:14 Active Chest 1V Frontal [CR] Stat Exams 12/14/18 12:13 Ordered DRUG SCREEN URINE BIORAD [URCHEM] Stat Lab 12/14/18 12:14 Ordered TSH ULTRASENSITIVE [CHEM] Stat Lab 12/14/18 12:24 Received UA RFX ARLEN AND CULT IF INDIC [URIN] Stat Lab 12/14/18 12:14 Ordered Sodium Chloride 0.9% [Normal Saline] 1,000 ml Med 12/14/18 12:24 Active IV .BOLUS Sodium Chloride 0.9% [Saline Flush] Med 12/14/18 12:14 Active 10 ml FLUSH ASDIRECTED PRN Peripheral IV Insertion Adult [OM.PC] Stat Oth 12/14/18 12:13 Ordered Medication Orders Sodium Chloride (Normal Saline) 1,000 mls @ 999 mls/hr IV .BOLUS ONE Stop: 12/14/18 13:24 Last Admin: 12/14/18 12:07 Dose: 999 mls/hr Sodium Chloride (Saline Flush) 10 ml FLUSH ASDIRECTED PRN PRN Reason: Keep Vein Open Last Admin: 12/14/18 12:49 Dose: 10 ml Labs: Laboratory Tests 12/14/18 12/14/18 12/14/18 Range/Units 12:14 12:24 12:24 WBC 4.1 L (5.0-10.0) 10^3/uL RBC 4.19 L (4.6-6.2) 10^6/uL Hgb 13.3 L (14.0-18.0) g/dL Hct 39.9 L (40.0-54.0) % MCV 95.2 (80-100) fL MCH 31.7 (27.0-34.0) pg MCHC 33.3 (33.0-35.0) g/dL Plt Count 143 L (150-450) 10^3/uL Neut % (Auto) 63.8 (42.2-75.2) % Lymph % (Auto) 19.7 L (20.5-50.1) % Petroleum % (Auto) 14.6 H (2-8) % Eos % (Auto) 1.7 (1.0-3.0) % Baso % (Auto) 0.2 (0.0-1.0) % Sodium 136 (135-145) mmol/L Potassium 3.7 (3.6-5.0) mmol/L Chloride 105 (101-111) mmol/L Carbon Dioxide 24.0 (21.0-31.0) mmol/L Anion Gap 10.7 BUN 13 (7-18) mg/dL Creatinine 0.8 (0.6-1.3) mg/dL Est Cr Clr Drug Dosing TNP Estimated GFR (MDRD) > 60 BUN/Creatinine Ratio 16.25 Glucose 115 H (74-105) mg/dL POC Glucose 113 H (83-110) mg/dl Calcium 7.5 L (8.4-10.2) mg/dl Magnesium 1.9 (1.8-2.5) mg/dL Total Bilirubin 0.9 (0.2-1.0) mg/dL AST 20 (10-42) IU/L ALT 17 (10-60) IU/L Alkaline Phosphatase 73 (42-121) IU/L Troponin I < 0.02 (0.00-0.02) ng/ml Total Protein 5.4 L (6.7-8.2) g/dl Albumin 3.4 (3.2-5.5) g/dl Globulin 2.0 Albumin/Globulin Ratio 1.70 Meds: Medications Generic Name Dose Route Start Last Admin Trade Name Freq PRN Reason Stop Dose Admin Sodium Chloride 1,000 mls @ 999 mls/hr 12/14/18 12:24 12/14/18 12:07 Normal Saline IV 12/14/18 13:24 999 mls/hr .BOLUS ONE Administration Sodium Chloride 10 ml 12/14/18 12:14 12/14/18 12:49 Saline Flush FLUSH 10 ml ASDIRECTED PRN Administration Keep Vein Open - Radiology Interpretation Free Text/Narrative:: Patient has refused chest XRAY at time despite education provided per Dr. Barragan. - Re-Assessments/Exams Free Text/Narrative Re-Assessment/Exam: Patient wound cleansed, surgicel dressing placed and secured with coband. Patient has refused any further work up of his syncopal episode. Education has been provided regarding the use of additional tools to evaluate his recurrent syncopal episode. Patients states that he has "had multiple episode similar to this" which have resulted in multiple evaluations and workups with no findings. Patient does follow with PCP and cellar pumper per his report. Continues to adamantly refuse any further evaluation. Departure - Departure Time of Disposition: 13:03 Disposition: Home, Self-Care 01 Condition: Good Clinical Impression: Soft tissue avulsion Episode of syncope Qualifiers: Syncope type: unspecified Qualified Code(s): R55 - Syncope and collapse - Discharge Information *PRESCRIPTION DRUG MONITORING PROGRAM REVIEWED*: No *COPY OF PRESCRIPTION DRUG MONITORING REPORT IN PATIENT APOLINAR: No Instructions: Laceration Care, Adult, [id number], Syncope, [id number] Forms: ED Department Discharge Additional Instructions: Leave dressing in place for at least 24 hours. Leave surgicel pad in place if changing the dressing post 24 hour period. Follow up in clinic for recheck of syncope and injury to left thumb. Return to ER with any worsening of symptoms, or if you change your mind in regards to evaluation of syncope, or recurrent of event. - My Orders Last 24 Hours: My Active Orders 12/14/18 12:13 EKG 12 Lead [EKG Documentation Completion] [RC] STAT Chest 1V Frontal [CR] Stat Peripheral IV Insertion Adult [OM.PC] Stat 12/14/18 12:14 Blood Glucose Check, Bedside [RC] ONETIME Peripheral IV Care [RC] . DIRECTED DRUG SCREEN URINE BIORAD [URCHEM] Stat UA RFX ARLEN AND CULT IF INDIC [URIN] Stat Sodium Chloride 0.9% [Saline Flush] 10 ml FLUSH ASDIRECTED PRN 12/14/18 12:24 TSH ULTRASENSITIVE [CHEM] Stat - Assessment/Plan Last 24 Hours: My Active Orders 12/14/18 12:13 EKG 12 Lead [EKG Documentation Completion] [RC] STAT Chest 1V Frontal [CR] Stat Peripheral IV Insertion Adult [OM.PC] Stat 12/14/18 12:14 Blood Glucose Check, Bedside [RC] ONETIME Peripheral IV Care [RC] . DIRECTED DRUG SCREEN URINE BIORAD [URCHEM] Stat UA RFX ARLEN AND CULT IF INDIC [URIN] Stat Sodium Chloride 0.9% [Saline Flush] 10 ml FLUSH ASDIRECTED PRN 12/14/18 12:24 TSH ULTRASENSITIVE [CHEM] Stat <Samuel Barragan - Last Filed: 12/14/18 13:04> ED HPI GENERAL MEDICAL PROBLEM - General Source of Information: Reports: RN, RN Notes Reviewed Past Medical History Cardiovascular History: Reports: Syncope (Recurrent) Course - Re-Assessments/Exams Free Text/Narrative Re-Assessment/Exam: 12/14/18 12:34 I personally performed or re-performed the physical examination and medical decision making. I have verified all student documentation or findings, including history, physical exam and/or medical decision making.
[2018-12-14] MEDS ORDERED: Sodium Chloride 0.9% 10 ML Syringe FLUSH PRN (12:14)
[2018-12-14 12:19] VITALS: BP 114/61
[2018-12-14] MEDS ORDERED: Sodium Chloride 0.9% 1,000 ML IV ONE (12:24)
[2018-12-14 12:51] LABS: ANION GAP 10.7; CHLORIDE,CL 105 mmol/L (101-111); SODIUM,NA 136 mmol/L (135-145)
== END 2018-12-14 13:23 | disposition home or self-care (01) ==
LOC: DL.ED 11:28
DX: S61.002A Unspecified open wound of left thumb without damage to nail, initial encounter (principal); R55 Syncope and collapse; Z88.1 Allergy status to other antibiotic agents; Z88.8 Allergy status to other drugs, medicaments and biological substances; Z79.899 Other long term (current) drug therapy; W26.0XXA Contact with knife, initial encounter
CPT/HCPCS: 36415; 80053; 82962; 83735; 84443; 84484; 85025; 93005; 96360; 99284; J7030

== ENCOUNTER 2021-06-08 12:25 | Emergency (ER) | payer MEDICARE, BC ==
[2021-06-08 12:52] VITALS: BP 137/71; PULSE 88
--- NOTE | 2021-06-08 13:19 | EDM.PDOC ---
ED HPI GENERAL MEDICAL PROBLEM - General Chief Complaint: Respiratory Problem Stated Complaint: COVID POSITIVE Time Seen by Provider: 06/08/21 13:10 Source of Information: Reports: Patient, RN, RN Notes Reviewed History Limitations: Reports: No Limitations - History of Present Illness INITIAL COMMENTS - FREE TEXT/NARRATIVE: Patient is a 76 yo male with PMH of COPD and covid who presents to the ED for productive cough. Patient tested positive for covid 06/05 and symptoms started 05/31. Overall patient notes that his symptoms have been stable. His cough has been productive of ceballos/dark sputum. After telling his and family about this they said he needed to be evaluated for pneumonia. He notes that all of his symptoms have improved aside from his cough and shortness of breath. Although he does note his SOB is chronic and no worse than his baseline. He feels comfortable taking care of himself at home and doesnt feel like he needs to be admitted. Denies fever, chills, chest pain, palpitations, sore throat, nausea, emesis, diarrhea, hematemesis, melena, and hematochezia. - Related Data Allergies Allergy/AdvReac Type Severity Reaction Status Date / Time amoxicillin trihydrate Allergy unknown Verified 06/08/21 12:52 [From Augmentin] duloxetine HCl Allergy unknown Verified 06/08/21 12:52 [From Cymbalta] lamotrigine Allergy UNKNOWN Verified 06/08/21 12:52 methadone [Methadone] Allergy NAUSEA/VOMI Verified 06/08/21 12:52 TING/DIARRH EA phenytoin sodium Allergy Hives Verified 06/08/21 12:52 [From Dilantin] phenytoin sodium extended Allergy unknown Verified 06/08/21 12:52 [From Dilantin] potassium clavulanate Allergy unknown Verified 06/08/21 12:52 [From Augmentin] Home Meds: Home Meds Alfuzosin HCl [Alfuzosin HCl ER] 10 mg PO DAILY 10/14/18 [History] Baclofen 10 mg PO .AFTERNOON 10/14/18 [History] Cetirizine HCl 10 mg PO BEDTIME 10/14/18 [History] Pregabalin [Lyrica] 200 mg PO TID 10/14/18 [History] Baclofen 15 mg PO .MORN,BEDTIME 11/12/18 [History] carBAMazepine [Carbamazepine ER] 100 mg PO BID 11/12/18 [History] Cyanocobalamin (Vitamin B12) [Vitamin B12] 1,000 mcg PO DAILY 06/08/21 [History] Levothyroxine 25 mcg PO ACBREAKFAST 06/08/21 [History] Past Medical History HEENT History: Reports: Hard of Hearing, Impaired Vision, Other (See Below) Other HEENT History: 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 Cardiovascular History: Reports: Syncope Respiratory History: Reports: None Gastrointestinal History: Reports: GERD Other Gastrointestinal History: ulcer Genitourinary History: Reports: Prostate Disorder Musculoskeletal History: Reports: Other (See Below) Other Musculoskeletal History: SLIGHTLY IMPAIRED MOBILITY TO RIGHT SIDE D/T BRAIN SURGERY; TRIGONOM NEUROPATHY PAIN Neurological History: Reports: Other (See Below) Other Neuro History: Trigeminal neuralgia, 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 Psychiatric History: Reports: Depression Endocrine/Metabolic History: Reports: Hypoparathyroidism Hematologic History: Reports: Iron Deficiency Immunologic History: Reports: None Oncologic (Cancer) History: Reports: Malignant Melanoma Dermatologic History: Reports: Other (See Below) Other Dermatologic History: RASH TO BACK OF HEAD, NECK, BUTTOCKS, AND LEFT ARM - Infectious Disease History Infectious Disease History: Reports: Novel Coronavirus Other Infectious Disease History: PATIENT CANNOT REMEMBER INFECTIOUS DISEASE BACKGROUND - Past Surgical History Head Surgeries/Procedures: Reports: Craniotomy HEENT Surgical History: Reports: Other (See Below) Other HEENT Surgeries/Procedures: crainal nerve surgery Cardiovascular Surgical History: Reports: None Respiratory Surgical History: Reports: None GI Surgical History: Reports: Appendectomy Male Surgical History: Reports: None Endocrine Surgical History: Reports: None Neurological Surgical History: Reports: Other (See Below) Other Neurological Surgeries/Procedures: crainiotomy Musculoskeletal Surgical History: Reports: None Oncologic Surgical History: Reports: Other (See Below) Other Oncologic Surgeries/Procedures: skin biospy from right Dermatological Surgical History: Reports: None Social & Family History - Family History Family Medical History: No Pertinent Family History - Tobacco Use Tobacco Use Status *Q: Never Tobacco User - Caffeine Use Caffeine Use: Reports: Soda - Recreational Drug Use Recreational Drug Use: No - Living Situation & Occupation Living situation: Reports: , with Spouse Occupation: Retired ED ROS GENERAL - Review of Systems Review Of Systems: See Below Constitutional: Reports: No Symptoms. Denies: Fever, Chills, Malaise, Weakness, Fatigue HEENT: Reports: No Symptoms Respiratory: Reports: Shortness of Breath, Cough Endocrine: Reports: No Symptoms GI/Abdominal: Reports: No Symptoms : Reports: No Symptoms Musculoskeletal: Reports: No Symptoms Skin: Reports: No Symptoms Neurological: Reports: No Symptoms Psychiatric: Reports: No Symptoms Hematologic/Lymphatic: Reports: No Symptoms Immunologic: Reports: No Symptoms ED EXAM, GENERAL - Physical Exam Exam: See Below Exam Limited By: No Limitations General Appearance: Alert, WD/WN, No Apparent Distress Eye Exam: Bilateral Eye: EOMI, PERRL Throat/Mouth: Normal Inspection Head: Atraumatic, Normocephalic Neck: Normal Inspection Respiratory/Chest: No Respiratory Distress, Crackles (left lower base occasional crackles), Other (slightly decreased breath sounds throughout, but air movement throughout all lung irving). No: Respiratory Distress GI/Abdominal: Normal Bowel Sounds, Soft, Non-Tender, No Organomegaly, No Distention Back Exam: Normal Inspection Extremities: Normal Inspection Neurological: Alert, Oriented, CN II-XII Intact, Normal Cognition Psychiatric: Normal Affect, Normal Mood Skin Exam: Warm, Dry, Intact Lymphatic: No Adenopathy Course - Vital Signs Last Recorded V/S: Last Vital Signs Temp 37.1 C 06/08/21 12:45 Pulse 88 06/08/21 12:45 Resp 20 06/08/21 12:45 BP 137/71 06/08/21 12:45 Pulse Ox 93 L 06/08/21 12:45 Departure - Departure Time of Disposition: 15:30 Disposition: Home, Self-Care 01 Condition: Good Clinical Impression: Pneumonia Qualifiers: Pneumonia type: due to unspecified organism Laterality: right Lung location: lower lobe of lung Qualified Code(s): J18.9 - Pneumonia, unspecified organism - Discharge Information *PRESCRIPTION DRUG MONITORING PROGRAM REVIEWED*: Not Applicable *COPY OF PRESCRIPTION DRUG MONITORING REPORT IN PATIENT APOLINAR: Not Applicable Instructions: Community-Acquired Pneumonia, Adult Additional Instructions: Complete vantin and azithromycin for 5 days Sepsis Event Note (ED) - Evaluation Sepsis Screening Result: No Definite Risk - Focused Exam Vital Signs: Vital Signs Temp Pulse Resp BP Pulse Ox 06/08/21 12:45 37.1 C 88 20 137/71 93 L - Assessment/Plan Plan: Patient is a 76 yo male being seen in the ED for Covid positive with productive cough. I had a lengthy discussion with the patient regarding workup for bacterial pneumonia in the face of covid pneumonia. I informed him that evidence has shown only 6% of covid patient's in the [place] have a secondary bacterial infection. I also discussed that I expect his chest xray and labs to potentially be abnormal with his covid diagnosis and COPD. Patient voiced understanding, but would like to proceed with imaging and labs. We will do chest xray, CBC, and CMP today. Chest xray shows patchy bilateral infiltrates consistent with covid pneumonia. CBC does have leukopenia likely secondary to covid infection. Patient has covid pneumonia. With the patient maintaining oxygenation despite covid and COPD there is no medical need for admission to the hospital. We will cover the patient with Vantin 200 mg BID for 5 days and Azithromycin for 5 days for a community acquired pneumonia. Patient is medically stable and cleared for discharge.
--- NOTE | 2021-06-08 13:59 | CR ---
PROCEDURE INFORMATION: Exam: XR Chest Exam date and time: 06/08/2021 1:37 PM Age: 76 years old Clinical indication: Other: Cough // SOB TECHNIQUE: Imaging protocol: XR of the chest. Views: 1 view. COMPARISON: CR Chest 1V Frontal 11/12/2018 12:29 AM FINDINGS: Lungs: Right lower lobe infiltrate. Lungs otherwise clear. Pleural spaces: Unremarkable. No pleural effusion. No pneumothorax. Heart/Mediastinum: Unremarkable. No cardiomegaly. Bones/joints: Unremarkable. IMPRESSION: Right lower lobe pneumonia
[2021-06-08 14:51] LABS: ANION GAP 11.3 mEq/L (7-13); CHLORIDE,CL 99 mmol/L (98-107); SODIUM,NA 134 mmol/L (136-145)
== END 2021-06-08 15:35 | disposition home or self-care (01) ==
LOC: DL.ED 12:25
DX: J18.9 Pneumonia, unspecified organism (principal); J44.9 Chronic obstructive pulmonary disease, unspecified; E03.9 Hypothyroidism, unspecified; Z88.0 Allergy status to penicillin; Z88.5 Allergy status to narcotic agent; Z88.8 Allergy status to other drugs, medicaments and biological substances; Z79.899 Other long term (current) drug therapy
CPT/HCPCS: 36415; 71045; 80053; 85025; 99283-25

== ENCOUNTER 2021-06-12 15:22 | Inpatient (IN) | payer MEDICARE, BC ==
--- NOTE | 2021-06-12 15:23 | EDM.PDOC ---
ED HPI GENERAL MEDICAL PROBLEM - General Chief Complaint: Respiratory Problem Stated Complaint: AMBULANCE Time Seen by Provider: 06/12/21 15:22 Source of Information: Reports: Patient, Old Records, RN, RN Notes Reviewed History Limitations: Reports: No Limitations - History of Present Illness INITIAL COMMENTS - FREE TEXT/NARRATIVE: Pt presents to ER by POV with c/o severe shortness of breath and progressively worsening weakness. Pt states he became sick on 05/31/21, and tested positive for COVID on 06/05/21. Pt denies chest pain, hemoptysis, or syncope. Admits to lightheadedness, loss of appetite, and cough. Onset: Gradual Duration: Day(s): (10+), Constant, Getting Worse Severity: Severe Improves with: Reports: None Associated Symptoms: Reports: No Other Symptoms Mid-Sternal Chest Pain Score (Numeric/FACES): 7 - Related Data Allergies Allergy/AdvReac Type Severity Reaction Status Date / Time amoxicillin trihydrate Allergy unknown Verified 06/12/21 17:16 [From Augmentin] duloxetine HCl Allergy unknown Verified 06/12/21 17:16 [From Cymbalta] lamotrigine Allergy UNKNOWN Verified 06/12/21 17:16 methadone [Methadone] Allergy NAUSEA/VOMI Verified 06/12/21 17:16 TING/DIARRH EA phenytoin sodium Allergy Hives Verified 06/12/21 17:16 [From Dilantin] phenytoin sodium extended Allergy unknown Verified 06/12/21 17:16 [From Dilantin] potassium clavulanate Allergy unknown Verified 06/12/21 17:16 [From Augmentin] Home Meds: Home Meds Alfuzosin HCl [Alfuzosin HCl ER] 10 mg PO DAILY 10/14/18 [History] Baclofen 10 mg PO .AFTERNOON 10/14/18 [History] Cetirizine HCl 10 mg PO BEDTIME 10/14/18 [History] Pregabalin [Lyrica] 200 mg PO TID 10/14/18 [History] Baclofen 15 mg PO .MORN,BEDTIME 11/12/18 [History] carBAMazepine [Carbamazepine ER] 100 mg PO BID 11/12/18 [History] Cyanocobalamin (Vitamin B12) [Vitamin B12] 1,000 mcg PO DAILY 06/08/21 [History] Levothyroxine 25 mcg PO ACBREAKFAST 06/08/21 [History] Past Medical History HEENT History: Reports: Hard of Hearing, Impaired Vision, Other (See Below) Other HEENT History: 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 Cardiovascular History: Reports: Syncope Respiratory History: Reports: None Gastrointestinal History: Reports: GERD Other Gastrointestinal History: ulcer Genitourinary History: Reports: Prostate Disorder Musculoskeletal History: Reports: Other (See Below) Other Musculoskeletal History: SLIGHTLY IMPAIRED MOBILITY TO RIGHT SIDE D/T BRAIN SURGERY; TRIGONOM NEUROPATHY PAIN Neurological History: Reports: Other (See Below) Other Neuro History: Trigeminal neuralgia, 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 Psychiatric History: Reports: Depression Endocrine/Metabolic History: Reports: Hypoparathyroidism Hematologic History: Reports: Iron Deficiency Immunologic History: Reports: None Oncologic (Cancer) History: Reports: Malignant Melanoma Dermatologic History: Reports: Other (See Below) Other Dermatologic History: RASH TO BACK OF HEAD, NECK, BUTTOCKS, AND LEFT ARM - Infectious Disease History Infectious Disease History: Reports: Novel Coronavirus Other Infectious Disease History: PATIENT CANNOT REMEMBER INFECTIOUS DISEASE BACKGROUND - Past Surgical History Head Surgeries/Procedures: Reports: Craniotomy HEENT Surgical History: Reports: Other (See Below) Other HEENT Surgeries/Procedures: crainal nerve surgery Cardiovascular Surgical History: Reports: None Respiratory Surgical History: Reports: None GI Surgical History: Reports: Appendectomy Male Surgical History: Reports: None Endocrine Surgical History: Reports: None Neurological Surgical History: Reports: Other (See Below) Other Neurological Surgeries/Procedures: crainiotomy Musculoskeletal Surgical History: Reports: None Oncologic Surgical History: Reports: Other (See Below) Other Oncologic Surgeries/Procedures: skin biospy from right Dermatological Surgical History: Reports: None Social & Family History - Family History Family Medical History: No Pertinent Family History - Caffeine Use Caffeine Use: Reports: Soda - Living Situation & Occupation Living situation: Reports: , with Spouse Occupation: Retired ED ROS GENERAL - Review of Systems Review Of Systems: Comprehensive ROS is negative, except as noted in HPI. ED EXAM, GENERAL - Physical Exam Exam: See Below Exam Limited By: No Limitations General Appearance: Alert, No Apparent Distress Eye Exam: Bilateral Eye: Normal Inspection Nose: Normal Inspection Throat/Mouth: Normal Inspection, Normal Lips, Normal Voice, No Airway Compromise Head: Atraumatic, Normocephalic Neck: Normal Inspection Respiratory/Chest: No Respiratory Distress, No Accessory Muscle Use, Decreased Breath Sounds. No: Crackles, Rales, Rhonchi, Wheezing Cardiovascular: Regular Rate, Rhythm, No Edema, Tachycardia GI/Abdominal: Normal Bowel Sounds, Soft, Non-Tender Back Exam: Normal Inspection Extremities: Normal Inspection, Non-Tender, No Pedal Edema. No: Mirian's Sign Neurological: Alert, Oriented, CN II-XII Intact, Normal Cognition, No Motor/Sensory Deficits Psychiatric: Normal Mood Skin Exam: Warm, Dry, Intact, Normal Color, No Rash Course - Vital Signs Last Recorded V/S: Last Vital Signs Temp 98.0 F 06/12/21 15:44 Pulse 105 H 06/12/21 15:44 Resp 22 H 06/12/21 15:44 BP 154/79 H 06/12/21 15:44 Pulse Ox 87 L 06/12/21 15:44 - Orders/Labs/Meds Orders: Active Orders 24 hr Category Date Time Status EKG 12 Lead [EKG Documentation Completion] [] STAT Care 06/12/21 15:23 Activ e Peripheral IV Care [RC] . DIRECTED Care 06/12/21 15:24 Active RT Aerosol Therapy [RC] ASDIRECTED Care 06/12/21 15:52 Active Chest wo Cont [CT] Stat Exams 06/12/21 17:04 Ordered CULTURE BLOOD [BC] Stat Lab 06/12/21 15:39 Received CULTURE BLOOD [BC] Stat Lab 06/12/21 15:43 Received Sodium Chloride 0.9% [Saline Flush] Med 06/12/21 15:24 Active 10 ml FLUSH ASDIRECTED PRN Blood Culture x2 Reflex Set [OM.PC] Stat Oth 06/12/21 15:23 Ordered Peripheral IV Insertion Adult [OM.PC] Stat Oth 06/12/21 15:23 Ordered Medication Orders Sodium Chloride (Sodium Chloride 0.9% 10 Ml Syringe) 10 ml FLUSH ASDIRECTED PRN PRN Reason: Keep Vein Open Labs: Laboratory Tests 06/12/21 06/12/21 06/12/21 Range/Units 15:22 15:39 15:39 WBC 4.1 L (5.0-10.0) 10^3/uL RBC 4.16 L (4.6-6.2) 10^6/uL Hgb 12.8 L D (14.0-18.0) g/dL Hct 39.2 L (40.0-54.0) % MCV 94.2 (80-100) fL MCH 30.8 (27.0-34.0) pg MCHC 32.7 L (33.0-35.0) g/dL Plt Count 209 D (150-450) 10^3/uL Neut % (Auto) 73.0 (42.2-75.2) % Lymph % (Auto) 11.3 L (20.5-50.1) % [place] % (Auto) 15.7 H (2-8) % Eos % (Auto) 0.0 L (1.0-3.0) % Baso % (Auto) 0.0 (0.0-1.0) % PT 10.2 (9.0-12.0) SEC INR 1.0 (0.9-1.2) APTT 39.3 H (22.0-34.0) SEC D-Dimer, Quantitative 435 H (0-400) ng/mL Sodium (136-145) mmol/L Potassium (3.5-5.1) mmol/L Chloride (98-107) mmol/L Carbon Dioxide (21-32) mmol/L Anion Gap (7-13) mEq/L BUN (7-18) mg/dL Creatinine (0.70-1.30) mg/dL Est Cr Clr Drug Dosing Estimated GFR (MDRD) BUN/Creatinine Ratio (No establ ref range) Glucose (70-99) mg/dL Lactic Acid (0.4-2.0) mmol/L Calcium (8.5-10.1) mg/dL Magnesium (1.8-2.4) mg/dL Ferritin (26-388) mg/mL Total Bilirubin (0.2-1.0) mg/dL AST (15-37) U/L ALT (16-63) U/L Alkaline Phosphatase (46-116) U/L Troponin I High Sens (<=76) pg/mL C-Reactive Protein (0.0-0.9) mg/dL B-Natriuretic Peptide (0-100) pg/ml Total Protein (6.4-8.2) g/dL Albumin (3.4-5.0) g/dL Globulin Albumin/Globulin Ratio SARS-CoV-2 RNA (INDY) Positive H (NEGATIVE) 06/12/21 06/12/21 06/12/21 Range/Units 15:39 15:39 15:39 WBC (5.0-10.0) 10^3/uL RBC (4.6-6.2) 10^6/uL Hgb (14.0-18.0) g/dL Hct (40.0-54.0) % MCV (80-100) fL MCH (27.0-34.0) pg MCHC (33.0-35.0) g/dL Plt Count (150-450) 10^3/uL Neut % (Auto) (42.2-75.2) % Lymph % (Auto) (20.5-50.1) % [place] % (Auto) (2-8) % Eos % (Auto) (1.0-3.0) % Baso % (Auto) (0.0-1.0) % PT (9.0-12.0) SEC INR (0.9-1.2) APTT (22.0-34.0) SEC D-Dimer, Quantitative (0-400) ng/mL Sodium 136 (136-145) mmol/L Potassium 4.1 (3.5-5.1) mmol/L Chloride 100 (98-107) mmol/L Carbon Dioxide 27 (21-32) mmol/L Anion Gap 13.1 H (7-13) mEq/L BUN 16 (7-18) mg/dL Creatinine 1.07 (0.70-1.30) mg/dL Est Cr Clr Drug Dosing TNP Estimated GFR (MDRD) > 60 BUN/Creatinine Ratio 15.0 (No establ ref range) Glucose 111 H (70-99) mg/dL Lactic Acid 1.5 (0.4-2.0) mmol/L Calcium 7.6 L (8.5-10.1) mg/dL Magnesium 2.3 (1.8-2.4) mg/dL Ferritin 471 H (26-388) mg/mL Total Bilirubin 0.7 (0.2-1.0) mg/dL AST 37 (15-37) U/L ALT 25 (16-63) U/L Alkaline Phosphatase 71 (46-116) U/L Troponin I High Sens 26 (<=76) pg/mL C-Reactive Protein 17.8 H (0.0-0.9) mg/dL B-Natriuretic Peptide 32 (0-100) pg/ml Total Protein 6.2 L (6.4-8.2) g/dL Albumin 2.8 L (3.4-5.0) g/dL Globulin 3.4 Albumin/Globulin Ratio 0.82 SARS-CoV-2 RNA (INDY) (NEGATIVE) Meds: Medications Generic Name Dose Route Start Last Admin Trade Name Freq PRN Reason Stop Dose Admin Sodium Chloride 10 ml 06/12/21 15:24 Sodium Chloride 0.9% 10 Ml Syringe FLUSH ASDIRECTED PRN Keep Vein Open Discontinued Medications Generic Name Dose Route Start Last Admin Trade Name Freq PRN Reason Stop Dose Admin Albuterol/Ipratropium 3 ml 06/12/21 15:52 Albuterol/Ipratropium 3.0-0.5 Mg/3 Ml Neb Soln NEB 06/12/21 15:53 ONETIME ONE Promethazine HCl/Codeine 10 ml 06/12/21 15:52 06/12/21 17:14 Codeine/Promethazine 10-6.25 Mg/5 Ml Syrup 5 Ml Ud Cup PO 06/12/21 15:53 10 ml ONETIME ONE Administration - Radiology Interpretation Free Text/Narrative:: CT Chest w/o contrast: pending Departure - Departure Time of Disposition: 17:19 (admitted to Dr. Huber) Disposition: Admitted As Inpatient 67 Condition: Fair Clinical Impression: Pneumonia due to COVID-19 virus - Discharge Information *PRESCRIPTION DRUG MONITORING PROGRAM REVIEWED*: Not Applicable *COPY OF PRESCRIPTION DRUG MONITORING REPORT IN PATIENT APOLINAR: Not Applicable Forms: ED Department Discharge Sepsis Event Note (ED) - Focused Exam Vital Signs: Vital Signs Temp Pulse Resp BP Pulse Ox 06/12/21 15:44 98.0 F 105 H 22 H 154/79 H 87 L - My Orders Last 24 Hours: My Active Orders 06/12/21 15:23 EKG 12 Lead [EKG Documentation Completion] [RC] STAT Blood Culture x2 Reflex Set [OM.PC] Stat Peripheral IV Insertion Adult [OM.PC] Stat 06/12/21 15:24 Peripheral IV Care [RC] . DIRECTED Sodium Chloride 0.9% [Saline Flush] 10 ml FLUSH ASDIRECTED PRN 06/12/21 15:39 CULTURE BLOOD [BC] Stat 06/12/21 15:43 CULTURE BLOOD [BC] Stat 06/12/21 15:52 RT Aerosol Therapy [RC] ASDIRECTED 06/12/21 17:04 Chest wo Cont [CT] Stat - Assessment/Plan Last 24 Hours: My Active Orders 06/12/21 15:23 EKG 12 Lead [EKG Documentation Completion] [RC] STAT Blood Culture x2 Reflex Set [OM.PC] Stat Peripheral IV Insertion Adult [OM.PC] Stat 06/12/21 15:24 Peripheral IV Care [RC] . DIRECTED Sodium Chloride 0.9% [Saline Flush] 10 ml FLUSH ASDIRECTED PRN 06/12/21 15:39 CULTURE BLOOD [BC] Stat 06/12/21 15:43 CULTURE BLOOD [BC] Stat 06/12/21 15:52 RT Aerosol Therapy [RC] ASDIRECTED 06/12/21 17:04 Chest wo Cont [CT] Stat
[2021-06-12] MEDS ORDERED: Albuterol/Ipratropium 3.0-0.5 MG/3 ML Neb Soln NEB ONE (15:52)
[2021-06-12] MEDS ORDERED: Codeine/Promethazine 10-6.25 MG/5 ML Syrup 5 ML UD Cup PO ONE (15:52)
[2021-06-12 16:33] LABS: ANION GAP 13.1 mEq/L (7-13); CHLORIDE,CL 100 mmol/L (98-107); SODIUM,NA 136 mmol/L (136-145)
[2021-06-12 16:52] LABS: PTT,PARTIAL THROMBOPLSTIN TIME 39.3 SEC (22.0-34.0)
[2021-06-12] MEDS ORDERED: Acetaminophen 325 MG Tab PO PRN (17:30)
[2021-06-12] MEDS ORDERED: Ondansetron 4 MG/2 ML SDV IVPUSH PRN (17:30)
--- NOTE | 2021-06-12 17:36 | PCM.HP ---
H&P History of Present Illness - General Date of Service: 06/12/21 Admit Problem/Dx: Admission Diagnosis/Problem Admission Diagnosis/Problem Hypoxia Source of Information: Patient, EMS History Limitations: Reports: No Limitations - History of Present Illness Initial Comments - Free Text/Narative: Patient is a 76-year-old male with a past medical history of trigeminal neuralg ia, BPH who presents with COVID-19 pneumonia. Symptoms started at the end of May per patient. Per notes appears that he tested positive for COVID-19 on 06-05-21. Presented to the ED on 06-08-21 with shortness of breath was found to have oxygen saturations of 93-94 on room air. Chest x-ray showed bilateral infiltrates. Patient was given Vantin and azithromycin for 5 days. Since that time patient is at worsening shortness of breath, increasing cough and dyspnea with minimal exertion. Upon presentation to the emergency department today he was hypoxic with oxygen saturations 86 to 87% on room air. Laboratory studies show a hemoglobin of 12.8, WBC of 4.1, platelet count 209, BNP 32, D-dimer minimally elevated at 435, Covid test was again positive. Troponin negative at 26, ferritin elevated 471, CRP 17.8. Sodium 136, potassium 4.1, creatinine 1.07. Patient states that he just has continued worsening shortness of breath and cough. Denies any chest pains or pressures, abdominal pain, nausea or vomiting. Denies any melena, hemoptysis or any evidence of bleeding. Remainder review systems is negative except those listed above. Mid-Sternal Chest Pain Score (Numeric/FACES): 7 - Related Data Allergies/Adverse Reactions: Allergies Allergy/AdvReac Type Severity Reaction Status Date / Time amoxicillin trihydrate Allergy unknown Verified 06/12/21 17:58 [From Augmentin] duloxetine HCl Allergy unknown Verified 06/12/21 17:58 [From Cymbalta] lamotrigine Allergy UNKNOWN Verified 06/12/21 17:58 methadone [Methadone] Allergy NAUSEA/VOMI Verified 06/12/21 17:58 TING/DIARRH EA phenytoin sodium Allergy Hives Verified 06/12/21 17:58 [From Dilantin] phenytoin sodium extended Allergy unknown Verified 06/12/21 17:58 [From Dilantin] potassium clavulanate Allergy unknown Verified 06/12/21 17:58 [From Augmentin] Home Medications: Home Meds Alfuzosin HCl [Alfuzosin HCl ER] 10 mg PO DAILY 10/14/18 [History] Cetirizine HCl 10 mg PO BEDTIME 10/14/18 [History] Pregabalin [Lyrica] 200 mg PO TID 10/14/18 [History] carBAMazepine [Carbamazepine ER] 100 mg PO BID 11/12/18 [History] Cyanocobalamin (Vitamin B12) [Vitamin B12] 1,000 mcg PO DAILY 06/08/21 [History] Levothyroxine 25 mcg PO ACBREAKFAST 06/08/21 [History] Baclofen 10 mg PO ACDINNER 06/12/21 [History] Baclofen 15 mg PO BID 06/12/21 [History] Cefpodoxime [Vantin] 200 mg PO BID 06/12/21 [History] Past Medical History HEENT History: Reports: Hard of Hearing, Impaired Vision, Other (See Below) Other HEENT History: 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 Cardiovascular History: Reports: Syncope Respiratory History: Reports: None Gastrointestinal History: Reports: GERD Other Gastrointestinal History: ulcer Genitourinary History: Reports: Prostate Disorder Musculoskeletal History: Reports: Other (See Below) Other Musculoskeletal History: SLIGHTLY IMPAIRED MOBILITY TO RIGHT SIDE D/T BRAIN SURGERY; TRIGONOM NEUROPATHY PAIN Neurological History: Reports: Other (See Below) Other Neuro History: Trigeminal neuralgia, 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 Psychiatric History: Reports: Depression Endocrine/Metabolic History: Reports: Hypoparathyroidism Hematologic History: Reports: Iron Deficiency Immunologic History: Reports: None Oncologic (Cancer) History: Reports: Malignant Melanoma Dermatologic History: Reports: Other (See Below) Other Dermatologic History: RASH TO BACK OF HEAD, NECK, BUTTOCKS, AND LEFT ARM - Infectious Disease History Infectious Disease History: Reports: Novel Coronavirus Other Infectious Disease History: PATIENT CANNOT REMEMBER INFECTIOUS DISEASE BACKGROUND - Past Surgical History Head Surgeries/Procedures: Reports: Craniotomy HEENT Surgical History: Reports: Other (See Below) Other HEENT Surgeries/Procedures: crainal nerve surgery Cardiovascular Surgical History: Reports: None Respiratory Surgical History: Reports: None GI Surgical History: Reports: Appendectomy Male Surgical History: Reports: None Endocrine Surgical History: Reports: None Neurological Surgical History: Reports: Other (See Below) Other Neurological Surgeries/Procedures: crainiotomy Musculoskeletal Surgical History: Reports: None Oncologic Surgical History: Reports: Other (See Below) Other Oncologic Surgeries/Procedures: skin biospy from right Dermatological Surgical History: Reports: None Social & Family History - Family History Family Medical History: No Pertinent Family History - Caffeine Use Caffeine Use: Reports: Coffee - Recreational Drug Use Recreational Drug Use: No - Living Situation & Occupation Living situation: Reports: , with Spouse Occupation: Retired H&P Review of Systems - Review of Systems: Review Of Systems: Comprehensive ROS is negative, except as noted in HPI. Exam - Exam Exam: See Below - Vital Signs Vital Signs: Last Vital Signs Temp 98.0 F 06/12/21 15:44 Pulse 105 H 06/12/21 15:44 Resp 22 H 06/12/21 15:44 BP 154/79 H 06/12/21 15:44 Pulse Ox 87 L 06/12/21 15:44 Weight: 190 lb - Exam Quality Assessment: Supplemental Oxygen General: Alert, Oriented HEENT: Conjunctiva Clear Neck: Supple, Trachea Midline Lungs: Crackles (minimal crackles, mild respiratory distress) Cardiovascular: Regular Rate, Regular Rhythm GI/Abdominal Exam: Normal Bowel Sounds, Soft Back Exam: Normal Inspection Extremities: Normal Inspection Peripheral Pulses: 2+: Radial (L), Radial (R) Skin: Warm Neurological: Cranial Nerves Intact Neuro Extensive - Mental Status: Alert, Oriented x3 Psychiatric: Alert - Patient Data Lab Results Last 24 hrs: Laboratory Results - last 24 hr 06/12/21 06/12/21 06/12/21 Range/Units 15:22 15:39 15:39 WBC 4.1 L (5.0-10.0) 10^3/uL RBC 4.16 L (4.6-6.2) 10^6/uL Hgb 12.8 L D (14.0-18.0) g/dL Hct 39.2 L (40.0-54.0) % MCV 94.2 (80-100) fL MCH 30.8 (27.0-34.0) pg MCHC 32.7 L (33.0-35.0) g/dL Plt Count 209 D (150-450) 10^3/uL Neut % (Auto) 73.0 (42.2-75.2) % Lymph % (Auto) 11.3 L (20.5-50.1) % [place] % (Auto) 15.7 H (2-8) % Eos % (Auto) 0.0 L (1.0-3.0) % Baso % (Auto) 0.0 (0.0-1.0) % PT 10.2 (9.0-12.0) SEC INR 1.0 (0.9-1.2) APTT 39.3 H (22.0-34.0) SEC D-Dimer, Quantitative 435 H (0-400) ng/mL Sodium (136-145) mmol/L Potassium (3.5-5.1) mmol/L Chloride (98-107) mmol/L Carbon Dioxide (21-32) mmol/L Anion Gap (7-13) mEq/L BUN (7-18) mg/dL Creatinine (0.70-1.30) mg/dL Est Cr Clr Drug Dosing Estimated GFR (MDRD) BUN/Creatinine Ratio (No establ ref range) Glucose (70-99) mg/dL Lactic Acid (0.4-2.0) mmol/L Calcium (8.5-10.1) mg/dL Magnesium (1.8-2.4) mg/dL Ferritin (26-388) mg/mL Total Bilirubin (0.2-1.0) mg/dL AST (15-37) U/L ALT (16-63) U/L Alkaline Phosphatase (46-116) U/L Troponin I High Sens (<=76) pg/mL C-Reactive Protein (0.0-0.9) mg/dL B-Natriuretic Peptide (0-100) pg/ml Total Protein (6.4-8.2) g/dL Albumin (3.4-5.0) g/dL Globulin Albumin/Globulin Ratio SARS-CoV-2 RNA (INDY) Positive H (NEGATIVE) 06/12/21 06/12/21 06/12/21 Range/Units 15:39 15:39 15:39 WBC (5.0-10.0) 10^3/uL RBC (4.6-6.2) 10^6/uL Hgb (14.0-18.0) g/dL Hct (40.0-54.0) % MCV (80-100) fL MCH (27.0-34.0) pg MCHC (33.0-35.0) g/dL Plt Count (150-450) 10^3/uL Neut % (Auto) (42.2-75.2) % Lymph % (Auto) (20.5-50.1) % [place] % (Auto) (2-8) % Eos % (Auto) (1.0-3.0) % Baso % (Auto) (0.0-1.0) % PT (9.0-12.0) SEC INR (0.9-1.2) APTT (22.0-34.0) SEC D-Dimer, Quantitative (0-400) ng/mL Sodium 136 (136-145) mmol/L Potassium 4.1 (3.5-5.1) mmol/L Chloride 100 (98-107) mmol/L Carbon Dioxide 27 (21-32) mmol/L Anion Gap 13.1 H (7-13) mEq/L BUN 16 (7-18) mg/dL Creatinine 1.07 (0.70-1.30) mg/dL Est Cr Clr Drug Dosing TNP Estimated GFR (MDRD) > 60 BUN/Creatinine Ratio 15.0 (No establ ref range) Glucose 111 H (70-99) mg/dL Lactic Acid 1.5 (0.4-2.0) mmol/L Calcium 7.6 L (8.5-10.1) mg/dL Magnesium 2.3 (1.8-2.4) mg/dL Ferritin 471 H (26-388) mg/mL Total Bilirubin 0.7 (0.2-1.0) mg/dL AST 37 (15-37) U/L ALT 25 (16-63) U/L Alkaline Phosphatase 71 (46-116) U/L Troponin I High Sens 26 (<=76) pg/mL C-Reactive Protein 17.8 H (0.0-0.9) mg/dL B-Natriuretic Peptide 32 (0-100) pg/ml Total Protein 6.2 L (6.4-8.2) g/dL Albumin 2.8 L (3.4-5.0) g/dL Globulin 3.4 Albumin/Globulin Ratio 0.82 SARS-CoV-2 RNA (INDY) (NEGATIVE) Result Diagrams: 06/12/21 15:39 06/12/21 15:39 - Problem List (1) Acute respiratory failure with hypoxia SNOMED Code(s): 03069730, 178348486 ICD Code: J96.01 - ACUTE RESPIRATORY FAILURE WITH HYPOXIA Status: Acute Current Visit: Yes (2) Pneumonia due to COVID-19 virus SNOMED Code(s): 359194049927426172 ICD Code: U07.1 - COVID-19; J12.82 - PNEUMONIA DUE TO CORONAVIRUS DISEASE 2019 Status: Acute Current Visit: No (3) Retention of urine SNOMED Code(s): 727273302 ICD Code: R33.9 - RETENTION OF URINE, UNSPECIFIED Status: Acute Current Visit: No (4) Trigeminal nerve disease SNOMED Code(s): 44992608 ICD Code: G50.9 - DISORDER OF TRIGEMINAL NERVE, UNSPECIFIED Status: Acute Current Visit: Yes Problem List Initiated/Reviewed/Updated: Yes Orders Last 24hrs: Active Orders 24 hr Category Date Time Status Admission Diagnosis [ADT] Stat ADT 06/12/21 17:19 Ordered Admission Status [Patient Status] [ADT] Routine ADT 06/12/21 17:19 Active Oxygen Therapy [RC] PRN Care 06/12/21 17:30 Ordered Up With Assistance [RC] ASDIRECTED Care 06/12/21 17:30 Ordered VTE/DVT Education [RC] PER UNIT ROUTINE Care 06/12/21 17:30 Ordered Vital Signs [RC] Q4H Care 06/12/21 17:30 Ordered Chest wo Cont [CT] Stat Exams 06/12/21 17:04 Ordered CULTURE BLOOD [BC] Stat Lab 06/12/21 15:39 Received CULTURE BLOOD [BC] Stat Lab 06/12/21 15:43 Received Acetaminophen [TylenoL] Med 06/12/21 17:30 Ordered 650 mg PO Q4H PRN Enoxaparin [Lovenox] Med 06/13/21 09:00 Ordered 40 mg SUBCUT DAILY Ondansetron [Zofran] Med 06/12/21 17:30 Ordered 4 mg IVPUSH Q6H PRN Sodium Chloride 0.9% [Saline Flush] Med 06/12/21 15:24 Active 10 ml FLUSH ASDIRECTED PRN Blood Culture x2 Reflex Set [OM.PC] Stat Oth 06/12/21 15:23 Ordered Peripheral IV Insertion Adult [OM.PC] Stat Oth 06/12/21 15:23 Ordered Resuscitation Status Routine Resus Stat 06/12/21 17:30 Ordered Medication Orders Sodium Chloride (Sodium Chloride 0.9% 10 Ml Syringe) 10 ml FLUSH ASDIRECTED PRN PRN Reason: Keep Vein Open Assessment/Plan Comment:: Patient is a 76-year-old male with a history of trigeminal neuralgia, BPH who presented with shortness of breath and found to be hypoxic likely secondary to known recent COVID-19 diagnosis. #Acute hypoxic respiratory failure -Secondary to COVID-19 pneumonia -Positive test 06-05-21 -Patient was seen the emergency department on 06-08-21 and was treated with Vantin and azithromycin -has 1 additional dose of Vantin remaining -would hold on further antibiotics pending blood cultures -Remdesivir per protocol, will do dexamethasone for approximately 5 -10 days given the fact patient has had recent steroid administration -Laboratory monitoring per protocol -Oxygen saturation goal 90% -Albuterol and Symbicort inhalers -CT chest in process #Trigeminal neuralgia -Continue home carbamazepine, Lyrica, baclofen #BPHcontinue alpha-1 medication #Anemiahemoglobin decreased from 15-12.8 on most recent labs over the last 5 days. Patient denies any melena, medic easier, any blood loss. Repeat hemoglobin tomorrow a.m. Fluidsnone Electrolyteswithin normal limits DietGeneral DVT prophylaxisLovenox
--- NOTE | 2021-06-12 17:42 | CT ---
EXAMINATION: Chest wo Cont SEX: Male AGE: 76 years CLINICAL HISTORY: 76-year-old hypoxic male who tests positive for COVID19 virus. No comparison exam immediately available. Scan technique: Volume acquisition of data emergency unenhanced CT scan of the chest (bony thorax, lungs and mediastinum) obtained with the patient lying sup Welch on the Siemens multi slice scanner [place], [place]. All data archived PACS system for storage, reformatting axial/sagittal/coronal planes and study. Interpretation: Abnormal. Multilobar pneumonia. Hiatus hernia. Cholelithiasis. 1. Peripheral multilobar groundglass opacities scattered throughout both lung irving have the characteristic appearance of vasculitis and COVID19 viral pneumonia. 2. No suspicious parenchymal lung nodule/mass lesion. No hilar/mediastinal lymphadenopathy. No malignant effusions. 3. No air bronchograms, atelectasis or lobar collapse. 4. No pneumothorax or pneumomediastinum. Midline tracheal bronchial airway unremarkable. Peribronchial "cuffing". 4. Left ventriculomegaly. No pericardial effusion. No alveolar edema. 5. Large hiatus hernia incarcerated in the lower middle mediastinum. Cholelithiasis.
[2021-06-12] MEDS ORDERED: Albuterol 6.7 GM Inhaler INH PRN (18:04)
[2021-06-12] MEDS ORDERED: REMDESIVIR 200 MG in Sodium Chloride 0.9% 250 ML IV ONE (18:05)
[2021-06-12] MEDS ORDERED: Water For Injection, Sterile 20 ML ONE (19:31)
[2021-06-12] MEDS: Sodium Chloride 0.9% 10 ML Syringe FLUSH PRN ×4 (20:10→21:29)
[2021-06-12] MEDS ORDERED: CEFPODOXIME 200 MG PO SCH (21:00)
[2021-06-12] MEDS: CARBAMAZEPINE 100 MG PO SCH (21:29)
[2021-06-12] MEDS: CETIRIZINE 10 MG PO SCH (21:33)
[2021-06-12] MEDS: Baclofen 10 MG Tab PO SCH (21:39)
[2021-06-12] MEDS: Pregabalin 50 MG Cap PO SCH (21:50)
[2021-06-13] MEDS: Levothyroxine 25 MCG Tab PO SCH (06:06)
--- NOTE | 2021-06-13 06:55 | PCM.PN ---
- General Info Date of Service: 06/13/21 Admission Dx/Problem (Free Text): Admission Diagnosis/Problem Admission Diagnosis/Problem Hypoxia Subjective Update: Patient states he feels his breathing is stable. Patient continues to sat low 90s on 1 to 2 L nasal cannula. Blood pressures are stable. Again hemoglobin is slightly decreased patient denies any melena or hematochezia, no blood loss. Patient overall feels stable from prior day. Remainder review systems negative except as listed above. - Patient Data Vitals - Most Recent: Last Vital Signs Temp 98 F 06/12/21 19:58 Pulse 90 06/12/21 19:58 Resp 24 H 06/12/21 19:58 BP 131/62 06/12/21 19:58 Pulse Ox 93 L 06/12/21 19:58 Weight - Most Recent: 186 lb I&O - Last 24 Hours: Intake & Output 06/12/21 06/12/21 06/13/21 14:59 22:59 06:59 Intake Total 454 Balance 454 Lab Results Last 24 Hours: Laboratory Results - last 24 hr 06/12/21 06/12/21 06/12/21 Range/Units 15:22 15:39 15:39 WBC 4.1 L (5.0-10.0) 10^3/uL RBC 4.16 L (4.6-6.2) 10^6/uL Hgb 12.8 L D (14.0-18.0) g/dL Hct 39.2 L (40.0-54.0) % MCV 94.2 (80-100) fL MCH 30.8 (27.0-34.0) pg MCHC 32.7 L (33.0-35.0) g/dL Plt Count 209 D (150-450) 10^3/uL Neut % (Auto) 73.0 (42.2-75.2) % Lymph % (Auto) 11.3 L (20.5-50.1) % Towner % (Auto) 15.7 H (2-8) % Eos % (Auto) 0.0 L (1.0-3.0) % Baso % (Auto) 0.0 (0.0-1.0) % PT 10.2 (9.0-12.0) SEC INR 1.0 (0.9-1.2) APTT 39.3 H (22.0-34.0) SEC D-Dimer, Quantitative 435 H (0-400) ng/mL Sodium (136-145) mmol/L Potassium (3.5-5.1) mmol/L Chloride (98-107) mmol/L Carbon Dioxide (21-32) mmol/L Anion Gap (7-13) mEq/L BUN (7-18) mg/dL Creatinine (0.70-1.30) mg/dL Est Cr Clr Drug Dosing Estimated GFR (MDRD) BUN/Creatinine Ratio (No establ ref range) Glucose (70-99) mg/dL Lactic Acid (0.4-2.0) mmol/L Calcium (8.5-10.1) mg/dL Magnesium (1.8-2.4) mg/dL Ferritin (26-388) mg/mL Total Bilirubin (0.2-1.0) mg/dL AST (15-37) U/L ALT (16-63) U/L Alkaline Phosphatase (46-116) U/L Troponin I High Sens (<=76) pg/mL C-Reactive Protein (0.0-0.9) mg/dL B-Natriuretic Peptide (0-100) pg/ml Total Protein (6.4-8.2) g/dL Albumin (3.4-5.0) g/dL Globulin Albumin/Globulin Ratio SARS-CoV-2 RNA (INDY) Positive H (NEGATIVE) 06/12/21 06/12/21 06/12/21 Range/Units 15:39 15:39 15:39 WBC (5.0-10.0) 10^3/uL RBC (4.6-6.2) 10^6/uL Hgb (14.0-18.0) g/dL Hct (40.0-54.0) % MCV (80-100) fL MCH (27.0-34.0) pg MCHC (33.0-35.0) g/dL Plt Count (150-450) 10^3/uL Neut % (Auto) (42.2-75.2) % Lymph % (Auto) (20.5-50.1) % Towner % (Auto) (2-8) % Eos % (Auto) (1.0-3.0) % Baso % (Auto) (0.0-1.0) % PT (9.0-12.0) SEC INR (0.9-1.2) APTT (22.0-34.0) SEC D-Dimer, Quantitative (0-400) ng/mL Sodium 136 (136-145) mmol/L Potassium 4.1 (3.5-5.1) mmol/L Chloride 100 (98-107) mmol/L Carbon Dioxide 27 (21-32) mmol/L Anion Gap 13.1 H (7-13) mEq/L BUN 16 (7-18) mg/dL Creatinine 1.07 (0.70-1.30) mg/dL Est Cr Clr Drug Dosing TNP Estimated GFR (MDRD) > 60 BUN/Creatinine Ratio 15.0 (No establ ref range) Glucose 111 H (70-99) mg/dL Lactic Acid 1.5 (0.4-2.0) mmol/L Calcium 7.6 L (8.5-10.1) mg/dL Magnesium 2.3 (1.8-2.4) mg/dL Ferritin 471 H (26-388) mg/mL Total Bilirubin 0.7 (0.2-1.0) mg/dL AST 37 (15-37) U/L ALT 25 (16-63) U/L Alkaline Phosphatase 71 (46-116) U/L Troponin I High Sens 26 (<=76) pg/mL C-Reactive Protein 17.8 H (0.0-0.9) mg/dL B-Natriuretic Peptide 32 (0-100) pg/ml Total Protein 6.2 L (6.4-8.2) g/dL Albumin 2.8 L (3.4-5.0) g/dL Globulin 3.4 Albumin/Globulin Ratio 0.82 SARS-CoV-2 RNA (INDY) (NEGATIVE) Med Orders - Current: Current Medications Acetaminophen (Acetaminophen 325 Mg Tab) 650 mg PO Q4H PRN PRN Reason: Pain (Mild 1-3)/fever Albuterol (Albuterol 6.7 Gm Inhaler) 0 gm INH Q4H PRN PRN Reason: Shortness of Breath Baclofen (Baclofen 10 Mg Tab) 10 mg PO ACDINNER [facility] Baclofen (Baclofen 10 Mg Tab) 15 mg PO BID [facility] Last Admin: 06/12/21 21:39 Dose: 15 mg Documented by: Dexamethasone (Dexamethasone 6 Mg Tablet) 6 mg PO DAILY [facility] Stop: 06/22/21 09:01 Enoxaparin Sodium (Enoxaparin 40 Mg/0.4 Ml Syringe) 40 mg SUBCUT DAILY [facility] Guaifenesin/Dextromethorphan (Guaifenesin/Dextromethorphan 100-10 Mg/5 Ml Soln 5 Ml Cup) 10 ml PO Q6H PRN PRN Reason: Cough Remdesivir 100 mg/ Sodium (Chloride) 100 mls @ 100 mls/hr IV Q24H [facility] Stop: 06/16/21 18:59 Levothyroxine Sodium (Levothyroxine 25 Mcg Tab) 25 mcg PO ACBREAKFAST [facility] Last Admin: 06/13/21 06:06 Dose: 25 mcg Documented by: Carbamazepine Er (100mg Own Med) 0 mg PO BID [facility] Last Admin: 06/12/21 21:29 Dose: 100 mg Documented by: Cetirizine 10 Mg (Tablet Own Med) 0 mg PO BEDTIME [facility] Last Admin: 06/12/21 21:33 Dose: 10 mg Documented by: Alfuzosin 10 Mg Tab. (Er.24h Own Med*) 0 mg PO DAILY@1800 [facility] Ondansetron HCl (Ondansetron 4 Mg/2 Ml Sdv) 4 mg IVPUSH Q6H PRN PRN Reason: Nausea/Vomiting Pregabalin (Pregabalin 50 Mg Cap) 200 mg PO TID [facility] Last Admin: 06/12/21 21:50 Dose: 200 mg Documented by: Sodium Chloride (Sodium Chloride 0.9% 10 Ml Syringe) 10 ml FLUSH ASDIRECTED PRN PRN Reason: Keep Vein Open Last Admin: 06/12/21 21:29 Dose: 10 ml Documented by: Discontinued Medications Albuterol/Ipratropium (Albuterol/Ipratropium 3.0-0.5 Mg/3 Ml Neb Soln) 3 ml NEB ONETIME ONE Stop: 06/12/21 15:53 Last Admin: 06/12/21 18:45 Dose: Not Given Documented by: Remdesivir 200 mg/ Sodium (Chloride) 250 mls @ 250 mls/hr IV ONETIME ONE Stop: 06/12/21 19:04 Last Infusion: 06/12/21 21:27 Dose: Infused Documented by: Sterile Water (Sterile Water For Injection) Confirm Administered Dose 20 mls @ as directed .ROUTE .STK-MED ONE Stop: 06/12/21 19:32 Last Admin: 06/12/21 20:14 Dose: Not Given Documented by: Cefpodoxime 200 Mg (Tablet Own Med) 0 mg PO BID [facility] Stop: 06/12/21 21:01 Last Admin: 06/12/21 21:31 Dose: 200 mg Documented by: Alfuzosin 10 Mg Tab. (Er.24h Own Med*) 0 mg PO DAILY [facility] Promethazine HCl/Codeine (Codeine/Promethazine 10-6.25 Mg/5 Ml Syrup 5 Ml Ud Cup) 10 ml PO ONETIME ONE Stop: 06/12/21 15:53 Last Admin: 06/12/21 17:14 Dose: 10 ml Documented by: - Exam Quality Assessment: Supplemental Oxygen General: Alert, Oriented HEENT: Pupils Equal Neck: Supple Lungs: Decreased Breath Sounds, Wheezing Cardiovascular: Regular Rate, Regular Rhythm GI/Abdominal Exam: Normal Bowel Sounds, Soft, Non-Tender Back Exam: Normal Inspection Extremities: Normal Inspection Peripheral Pulses: 2+: Radial (L), Radial (R) Skin: Warm, Dry Neurological: No New Focal Deficit Psy/Mental Status: Alert - Patient Data Lab Results Last 24 hrs: Laboratory Results - last 24 hr 06/12/21 06/12/21 06/12/21 Range/Units 15:22 15:39 15:39 WBC 4.1 L (5.0-10.0) 10^3/uL RBC 4.16 L (4.6-6.2) 10^6/uL Hgb 12.8 L D (14.0-18.0) g/dL Hct 39.2 L (40.0-54.0) % MCV 94.2 (80-100) fL MCH 30.8 (27.0-34.0) pg MCHC 32.7 L (33.0-35.0) g/dL Plt Count 209 D (150-450) 10^3/uL Neut % (Auto) 73.0 (42.2-75.2) % Lymph % (Auto) 11.3 L (20.5-50.1) % Towner % (Auto) 15.7 H (2-8) % Eos % (Auto) 0.0 L (1.0-3.0) % Baso % (Auto) 0.0 (0.0-1.0) % PT 10.2 (9.0-12.0) SEC INR 1.0 (0.9-1.2) APTT 39.3 H (22.0-34.0) SEC D-Dimer, Quantitative 435 H (0-400) ng/mL Sodium (136-145) mmol/L Potassium (3.5-5.1) mmol/L Chloride (98-107) mmol/L Carbon Dioxide (21-32) mmol/L Anion Gap (7-13) mEq/L BUN (7-18) mg/dL Creatinine (0.70-1.30) mg/dL Est Cr Clr Drug Dosing Estimated GFR (MDRD) BUN/Creatinine Ratio (No establ ref range) Glucose (70-99) mg/dL Lactic Acid (0.4-2.0) mmol/L Calcium (8.5-10.1) mg/dL Magnesium (1.8-2.4) mg/dL Ferritin (26-388) mg/mL Total Bilirubin (0.2-1.0) mg/dL AST (15-37) U/L ALT (16-63) U/L Alkaline Phosphatase (46-116) U/L Troponin I High Sens (<=76) pg/mL C-Reactive Protein (0.0-0.9) mg/dL B-Natriuretic Peptide (0-100) pg/ml Total Protein (6.4-8.2) g/dL Albumin (3.4-5.0) g/dL Globulin Albumin/Globulin Ratio SARS-CoV-2 RNA (INDY) Positive H (NEGATIVE) 06/12/21 06/12/21 06/12/21 Range/Units 15:39 15:39 15:39 WBC (5.0-10.0) 10^3/uL RBC (4.6-6.2) 10^6/uL Hgb (14.0-18.0) g/dL Hct (40.0-54.0) % MCV (80-100) fL MCH (27.0-34.0) pg MCHC (33.0-35.0) g/dL Plt Count (150-450) 10^3/uL Neut % (Auto) (42.2-75.2) % Lymph % (Auto) (20.5-50.1) % Towner % (Auto) (2-8) % Eos % (Auto) (1.0-3.0) % Baso % (Auto) (0.0-1.0) % PT (9.0-12.0) SEC INR (0.9-1.2) APTT (22.0-34.0) SEC D-Dimer, Quantitative (0-400) ng/mL Sodium 136 (136-145) mmol/L Potassium 4.1 (3.5-5.1) mmol/L Chloride 100 (98-107) mmol/L Carbon Dioxide 27 (21-32) mmol/L Anion Gap 13.1 H (7-13) mEq/L BUN 16 (7-18) mg/dL Creatinine 1.07 (0.70-1.30) mg/dL Est Cr Clr Drug Dosing TNP Estimated GFR (MDRD) > 60 BUN/Creatinine Ratio 15.0 (No establ ref range) Glucose 111 H (70-99) mg/dL Lactic Acid 1.5 (0.4-2.0) mmol/L Calcium 7.6 L (8.5-10.1) mg/dL Magnesium 2.3 (1.8-2.4) mg/dL Ferritin 471 H (26-388) mg/mL Total Bilirubin 0.7 (0.2-1.0) mg/dL AST 37 (15-37) U/L ALT 25 (16-63) U/L Alkaline Phosphatase 71 (46-116) U/L Troponin I High Sens 26 (<=76) pg/mL C-Reactive Protein 17.8 H (0.0-0.9) mg/dL B-Natriuretic Peptide 32 (0-100) pg/ml Total Protein 6.2 L (6.4-8.2) g/dL Albumin 2.8 L (3.4-5.0) g/dL Globulin 3.4 Albumin/Globulin Ratio 0.82 SARS-CoV-2 RNA (INDY) (NEGATIVE) Result Diagrams: 06/13/21 11:18 06/13/21 06:15 Sepsis Event Note - Evaluation Sepsis Screening Result: No Definite Risk - Focused Exam Vital Signs: Vital Signs Temp Pulse Resp BP Pulse Ox 06/12/21 19:58 98 F 90 24 H 131/62 93 L - Problem List & Annotations (1) Acute respiratory failure with hypoxia SNOMED Code(s): 95951346, 815192175 Code(s): J96.01 - ACUTE RESPIRATORY FAILURE WITH HYPOXIA Status: Acute Current Visit: Yes (2) Pneumonia due to COVID-19 virus SNOMED Code(s): 271456537049084842 Code(s): U07.1 - COVID-19; J12.82 - PNEUMONIA DUE TO CORONAVIRUS DISEASE 2019 Status: Acute Current Visit: No (3) Retention of urine SNOMED Code(s): 654895806 Code(s): R33.9 - RETENTION OF URINE, UNSPECIFIED Status: Acute Current Visit: No (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 Code(s): G50.9 - DISORDER OF TRIGEMINAL NERVE, UNSPECIFIED Status: Acute Current Visit: Yes - Problem List Review Problem List Initiated/Reviewed/Updated: Yes - My Orders Last 24 Hours: My Active Orders 06/12/21 17:30 Oxygen Therapy [RC] PRN Up With Assistance [RC] ASDIRECTED VTE/DVT Education [RC] Vital Signs [RC] 00,04,08,12,16,20 Acetaminophen [TylenoL] 650 mg PO Q4H PRN Ondansetron [Zofran] 4 mg IVPUSH Q6H PRN Resuscitation Status Routine 06/12/21 18:04 RT Post Treatment Assessment [RC] Click to Edit RT Pre-Treatment Assessment [RC] Click to Edit Albuterol [Proventil HFA] 0 gm INH Q4H PRN Dextromethorphan/guaiFENesin [Robitussin DM] 10 ml PO Q6H PRN 06/12/21 18:05 Isolation [COMM] Stat 06/12/21 21:00 Baclofen [Lioresal] 15 mg PO BID Cetirizine HCl [Cetirizine HCl] 0 mg PO BEDTIME Pregabalin [Lyrica] 200 mg PO TID carBAMazepine [Carbamazepine ER] 0 mg PO BID 06/13/21 06:00 Levothyroxine 25 mcg PO ACBREAKFAST 06/13/21 06:15 CMP [COMPREHENSIVE METABOLIC PN,CMP] [CHEM] AM 06/13/21 Breakfast Regular Diet [DIET] 06/13/21 09:00 Enoxaparin [Lovenox] 40 mg SUBCUT DAILY dexAMETHasone 6 mg PO DAILY 06/13/21 17:00 Baclofen [Lioresal] 10 mg PO ACDINNER 06/13/21 18:00 Alfuzosin Hcl [Alfuzosin Hcl Er] 0 mg PO DAILY@1800 Remdesivir 100 mg Sodium Chloride 0.9% [Normal Saline AdvBag] 100 ml IV Q24H - Plan Plan:: Patient is a 76-year-old male with a history of trigeminal neuralgia, BPH who presented with shortness of breath and found to be hypoxic likely secondary to known recent COVID-19 diagnosis. #Acute hypoxic respiratory failure -Secondary to COVID-19 pneumonia -Positive test 06-05-21 -Patient was seen the emergency department on 06-08-21 and was treated with Vantin and azithromycin -has 1 additional dose of Vantin remaining -would hold on further antibiotics pending blood cultures -Remdesivir per protocol, will do dexamethasone for approximately 5 -10 days given the fact patient has had recent steroid administration -Laboratory monitoring per protocol -Oxygen saturation goal 90% - maintaining oxygen saturations on 1-2L via NC -Albuterol inhaler -CT chest showed significant bilateral infiltrates consistent with know COVID 19 infection #Trigeminal neuralgia -Continue home carbamazepine, Lyrica, baclofen #BPHcontinue alpha-1 medication #Anemiahemoglobin decreased from 15-12.8 on most recent labs over the last 5 days. Patient denies any melena, medic easier, any blood loss. Repeat hemoglobin 11.8 - will continue to monitor - Fluidsnone Electrolyteswithin normal limits DietGeneral DVT prophylaxisLovenox Dispo- at least 1 additional day of treatment. The patient maintains oxygen saturation of 1 to 2 L consider discharged home with home oxygen
[2021-06-13 07:15] LABS: ANION GAP 11.3 mEq/L (7-13); CHLORIDE,CL 103 mmol/L (98-107); SODIUM,NA 137 mmol/L (136-145)
[2021-06-13] MEDS ORDERED: ALFUZOSIN 10 MG PO SCH (09:00)
[2021-06-13] MEDS: Dexamethasone 6 MG TABLET PO SCH (09:40)
[2021-06-13] MEDS: Baclofen 10 MG Tab PO SCH ×3 (09:40→21:11)
[2021-06-13] MEDS: Enoxaparin 40 MG/0.4 ML Syringe SUBCUT SCH (09:41)
[2021-06-13] MEDS: CARBAMAZEPINE 100 MG PO SCH ×2 (09:42→21:12)
[2021-06-13] MEDS: Pregabalin 50 MG Cap PO SCH ×3 (09:43→21:11)
[2021-06-13] MEDS: guaiFENesin/Dextromethorphan 100-10 MG/5 ML Soln 5 ML Cup PO PRN (09:44)
[2021-06-13] MEDS: ALFUZOSIN 10 MG PO SCH (17:29)
[2021-06-13] MEDS: REMDESIVIR 100 MG in Sodium Chloride 0.9% 100 ML IV SCH (17:31)
[2021-06-13] MEDS: CETIRIZINE 10 MG PO SCH (21:13)
[2021-06-14] MEDS: guaiFENesin/Dextromethorphan 100-10 MG/5 ML Soln 5 ML Cup PO PRN ×2 (03:04→17:24)
--- NOTE | 2021-06-14 06:10 | PCM.PN ---
- General Info Date of Service: 06/14/21 Admission Dx/Problem (Free Text): Admission Diagnosis/Problem Admission Diagnosis/Problem Hypoxia Subjective Update: Patient states he feels his breathing is stable to improved. Patient continues to sat low 90s on 2 L nasal cannula. Blood pressures are stable. Again hemoglobin is slightly decreased patient denies any melena or hematochezia, no blood loss. Remainder review systems negative except as listed above. - Patient Data Vitals - Most Recent: Last Vital Signs Temp 97.1 F 06/14/21 04:00 Pulse 68 06/14/21 04:00 Resp 20 06/14/21 04:00 BP 137/64 06/14/21 04:00 Pulse Ox 90 L 06/14/21 04:00 Weight - Most Recent: 186 lb I&O - Last 24 Hours: Intake & Output 06/13/21 06/13/21 06/14/21 14:59 22:59 06:59 Intake Total 710 Output Total 450 Balance 710 -450 Lab Results Last 24 Hours: Laboratory Results - last 24 hr 06/13/21 06/13/21 Range/Units 06:15 11:18 Hgb 11.8 L (14.0-18.0) g/dL Sodium 137 (136-145) mmol/L Potassium 4.3 (3.5-5.1) mmol/L Chloride 103 (98-107) mmol/L Carbon Dioxide 27 (21-32) mmol/L Anion Gap 11.3 (7-13) mEq/L BUN 14 (7-18) mg/dL Creatinine 0.85 (0.70-1.30) mg/dL Est Cr Clr Drug Dosing 67.76 mL/min Estimated GFR (MDRD) > 60 BUN/Creatinine Ratio 16.5 (No establ ref range) Glucose 92 (70-99) mg/dL Calcium 7.2 L (8.5-10.1) mg/dL Total Bilirubin 0.5 (0.2-1.0) mg/dL AST 29 (15-37) U/L ALT 24 (16-63) U/L Alkaline Phosphatase 59 (46-116) U/L Total Protein 5.4 L (6.4-8.2) g/dL Albumin 2.3 L (3.4-5.0) g/dL Globulin 3.1 Albumin/Globulin Ratio 0.74 Zay Results Last 24 Hours: Microbiology 06/12/21 15:43 Aerobic Blood Culture - Preliminary Blood - Arm, Left NO GROWTH AFTER 1 DAY Anaerobic Blood Culture - Preliminary NO GROWTH AFTER 1 DAY 06/12/21 15:39 Aerobic Blood Culture - Preliminary Blood - Arm, Right NO GROWTH AFTER 1 DAY Anaerobic Blood Culture - Preliminary NO GROWTH AFTER 1 DAY Med Orders - Current: Current Medications Acetaminophen (Acetaminophen 325 Mg Tab) 650 mg PO Q4H PRN PRN Reason: Pain (Mild 1-3)/fever Albuterol (Albuterol 6.7 Gm Inhaler) 0 gm INH Q4H PRN PRN Reason: Shortness of Breath Baclofen (Baclofen 10 Mg Tab) 10 mg PO ACDINNER [facility] Last Admin: 06/13/21 17:28 Dose: 10 mg Documented by: Baclofen (Baclofen 10 Mg Tab) 15 mg PO BID [facility] Last Admin: 06/13/21 21:11 Dose: 15 mg Documented by: Dexamethasone (Dexamethasone 6 Mg Tablet) 6 mg PO DAILY [facility] Stop: 06/22/21 09:01 Last Admin: 06/13/21 09:40 Dose: 6 mg Documented by: Enoxaparin Sodium (Enoxaparin 40 Mg/0.4 Ml Syringe) 40 mg SUBCUT DAILY [facility] Last Admin: 06/13/21 09:41 Dose: 40 mg Documented by: Guaifenesin/Dextromethorphan (Guaifenesin/Dextromethorphan 100-10 Mg/5 Ml Soln 5 Ml Cup) 10 ml PO Q6H PRN PRN Reason: Cough Last Admin: 06/14/21 03:04 Dose: 10 ml Documented by: Remdesivir 100 mg/ Sodium (Chloride) 100 mls @ 100 mls/hr IV Q24H [facility] Stop: 06/16/21 18:59 Last Infusion: 06/13/21 18:35 Dose: Infused Documented by: Levothyroxine Sodium (Levothyroxine 25 Mcg Tab) 25 mcg PO ACBREAKFAST [facility] Last Admin: 06/13/21 06:06 Dose: 25 mcg Documented by: Carbamazepine Er (100mg Own Med) 0 mg PO BID [facility] Last Admin: 06/13/21 21:12 Dose: 100 mg Documented by: Cetirizine 10 Mg (Tablet Own Med) 0 mg PO BEDTIME [facility] Last Admin: 06/13/21 21:13 Dose: 10 mg Documented by: Alfuzosin 10 Mg Tab. (Er.24h Own Med*) 0 mg PO DAILY@1800 [facility] Last Admin: 06/13/21 17:29 Dose: 10 mg Documented by: Ondansetron HCl (Ondansetron 4 Mg/2 Ml Sdv) 4 mg IVPUSH Q6H PRN PRN Reason: Nausea/Vomiting Pregabalin (Pregabalin 50 Mg Cap) 200 mg PO TID [facility] Last Admin: 06/13/21 21:11 Dose: 200 mg Documented by: Sodium Chloride (Sodium Chloride 0.9% 10 Ml Syringe) 10 ml FLUSH ASDIRECTED PRN PRN Reason: Keep Vein Open Last Admin: 06/12/21 21:29 Dose: 10 ml Documented by: Discontinued Medications Albuterol/Ipratropium (Albuterol/Ipratropium 3.0-0.5 Mg/3 Ml Neb Soln) 3 ml NEB ONETIME ONE Stop: 06/12/21 15:53 Last Admin: 06/12/21 18:45 Dose: Not Given Documented by: Remdesivir 200 mg/ Sodium (Chloride) 250 mls @ 250 mls/hr IV ONETIME ONE Stop: 06/12/21 19:04 Last Infusion: 06/12/21 21:27 Dose: Infused Documented by: Sterile Water (Sterile Water For Injection) Confirm Administered Dose 20 mls @ as directed .ROUTE .STK-MED ONE Stop: 06/12/21 19:32 Last Admin: 06/12/21 20:14 Dose: Not Given Documented by: Cefpodoxime 200 Mg (Tablet Own Med) 0 mg PO BID [facility] Stop: 06/12/21 21:01 Last Admin: 06/12/21 21:31 Dose: 200 mg Documented by: Alfuzosin 10 Mg Tab. (Er.24h Own Med*) 0 mg PO DAILY [facility] Promethazine HCl/Codeine (Codeine/Promethazine 10-6.25 Mg/5 Ml Syrup 5 Ml Ud Cup) 10 ml PO ONETIME ONE Stop: 06/12/21 15:53 Last Admin: 06/12/21 17:14 Dose: 10 ml Documented by: - Exam Quality Assessment: Supplemental Oxygen General: Alert, Oriented HEENT: Pupils Equal Neck: Supple Lungs: Normal Respiratory Effort, Crackles Cardiovascular: Regular Rate, Regular Rhythm GI/Abdominal Exam: Normal Bowel Sounds, Soft Back Exam: Normal Inspection Extremities: Normal Inspection Peripheral Pulses: 2+: Radial (L), Radial (R) Skin: Warm, Dry Neurological: No New Focal Deficit Psy/Mental Status: Alert - Patient Data Lab Results Last 24 hrs: Laboratory Results - last 24 hr 06/13/21 06/13/21 Range/Units 06:15 11:18 Hgb 11.8 L (14.0-18.0) g/dL Sodium 137 (136-145) mmol/L Potassium 4.3 (3.5-5.1) mmol/L Chloride 103 (98-107) mmol/L Carbon Dioxide 27 (21-32) mmol/L Anion Gap 11.3 (7-13) mEq/L BUN 14 (7-18) mg/dL Creatinine 0.85 (0.70-1.30) mg/dL Est Cr Clr Drug Dosing 67.76 mL/min Estimated GFR (MDRD) > 60 BUN/Creatinine Ratio 16.5 (No establ ref range) Glucose 92 (70-99) mg/dL Calcium 7.2 L (8.5-10.1) mg/dL Total Bilirubin 0.5 (0.2-1.0) mg/dL AST 29 (15-37) U/L ALT 24 (16-63) U/L Alkaline Phosphatase 59 (46-116) U/L Total Protein 5.4 L (6.4-8.2) g/dL Albumin 2.3 L (3.4-5.0) g/dL Globulin 3.1 Albumin/Globulin Ratio 0.74 Result Diagrams: 06/14/21 06:15 06/13/21 06:15 Zay Results Last 24 hrs: Microbiology 06/12/21 15:43 Aerobic Blood Culture - Preliminary Blood - Arm, Left NO GROWTH AFTER 1 DAY Anaerobic Blood Culture - Preliminary NO GROWTH AFTER 1 DAY 06/12/21 15:39 Aerobic Blood Culture - Preliminary Blood - Arm, Right NO GROWTH AFTER 1 DAY Anaerobic Blood Culture - Preliminary NO GROWTH AFTER 1 DAY Sepsis Event Note - Evaluation Sepsis Screening Result: No Definite Risk - Focused Exam Vital Signs: Vital Signs Temp Pulse Resp BP Pulse Ox 06/14/21 04:00 97.1 F 68 20 137/64 90 L 06/13/21 20:00 97.7 F 67 18 122/63 95 - Problem List & Annotations (1) Acute respiratory failure with hypoxia SNOMED Code(s): 73776489, 459725434 Code(s): J96.01 - ACUTE RESPIRATORY FAILURE WITH HYPOXIA Status: Acute Current Visit: Yes (2) Pneumonia due to COVID-19 virus SNOMED Code(s): 613330086142257500 Code(s): U07.1 - COVID-19; J12.82 - PNEUMONIA DUE TO CORONAVIRUS DISEASE 2019 Status: Acute Current Visit: No (3) Retention of urine SNOMED Code(s): 844584162 Code(s): R33.9 - RETENTION OF URINE, UNSPECIFIED Status: Acute Current Visit: No (4) Trigeminal nerve disease SNOMED Code(s): 17256926 Code(s): G50.9 - DISORDER OF TRIGEMINAL NERVE, UNSPECIFIED Status: Acute Current Visit: Yes - Problem List Review Problem List Initiated/Reviewed/Updated: Yes - My Orders Last 24 Hours: My Active Orders 06/13/21 06:00 Levothyroxine 25 mcg PO ACBREAKFAST 06/13/21 Breakfast Regular Diet [DIET] 06/13/21 09:00 Enoxaparin [Lovenox] 40 mg SUBCUT DAILY dexAMETHasone 6 mg PO DAILY 06/13/21 10:24 Dietary Supplements [RC] TIDMEALS 06/13/21 17:00 Baclofen [Lioresal] 10 mg PO ACDINNER 06/13/21 18:00 Alfuzosin Hcl [Alfuzosin Hcl Er] 0 mg PO DAILY@1800 Remdesivir 100 mg Sodium Chloride 0.9% [Normal Saline AdvBag] 100 ml IV Q24H 06/14/21 05:11 HEMOGLOBIN [HEME] AM - Plan Plan:: Patient is a 76-year-old male with a history of trigeminal neuralgia, BPH who presented with shortness of breath and found to be hypoxic likely secondary to known recent COVID-19 diagnosis. #Acute hypoxic respiratory failure -Secondary to COVID-19 pneumonia -Positive test 06-05-21 -Patient was seen the emergency department on 06-08-21 and was treated with Vantin and azithromycin -finished vantin course during current hospitalization - would hold on further antibiotics - blood cultures negative -Remdesivir per protocol, will do dexamethasone for approximately 5 -10 days given the fact patient has had recent steroid administration -Laboratory monitoring per protocol -Oxygen saturation goal 90% - maintaining oxygen saturations on 2-3 L via NC -Albuterol inhaler -CT chest showed significant bilateral infiltrates consistent with know COVID 19 infection #Trigeminal neuralgia -Continue home carbamazepine, Lyrica, baclofen #BPHcontinue home alpha-1 medication #Anemiahemoglobin decreased from 15-12.8 on most recent labs over the last 5 days. Patient denies any melena, medic easier, any blood loss. Repeat hemoglobin 11.8 - 11.2 - -no evidence of hemolysis - will continue with lab monitoring Fluidsnone Electrolyteswithin normal limits DietGeneral DVT prophylaxisLovenox Dispo-worsening hypoxia - will need continued inpatient treatment - if maintains oxygen on stable low O2 requirements may be able to discharge to home with home oxygen
[2021-06-14] MEDS: Levothyroxine 25 MCG Tab PO SCH (06:41)
[2021-06-14] MEDS: Pregabalin 50 MG Cap PO SCH ×3 (08:54→20:08)
[2021-06-14] MEDS: Dexamethasone 6 MG TABLET PO SCH (08:54)
[2021-06-14] MEDS: Baclofen 10 MG Tab PO SCH ×3 (08:55→20:16)
[2021-06-14] MEDS: Enoxaparin 40 MG/0.4 ML Syringe SUBCUT SCH (08:56)
[2021-06-14] MEDS: CARBAMAZEPINE 100 MG PO SCH ×2 (09:00→20:15)
[2021-06-14] MEDS ORDERED: Benzonatate 100 MG Cap PO PRN (09:23)
[2021-06-14] MEDS: REMDESIVIR 100 MG in Sodium Chloride 0.9% 100 ML IV SCH (17:25)
[2021-06-14] MEDS: ALFUZOSIN 10 MG PO SCH (19:44)
[2021-06-14] MEDS: CETIRIZINE 10 MG PO SCH (20:14)
[2021-06-15] MEDS: Levothyroxine 25 MCG Tab PO SCH (05:50)
--- NOTE | 2021-06-15 06:53 | PCM.PN ---
- General Info Date of Service: 06/15/21 Admission Dx/Problem (Free Text): Admission Diagnosis/Problem Admission Diagnosis/Problem Hypoxia Subjective Update: Patient states he feels his breathing is stable to improved. Patient has continued to maintain his oxygen saturations on 2 L via nasal cannula for the last 72 hours. Had a prolonged discussion with patient today about the possibility of going home with home oxygen. Patient stated that he was agreeable and states he thinks he would do well at home. Remainder view systems is negative except those listed above. - Patient Data Vitals - Most Recent: Last Vital Signs Temp 97.3 F 06/15/21 04:00 Pulse 73 06/15/21 04:00 Resp 20 06/15/21 04:00 BP 116/55 L 06/15/21 04:00 Pulse Ox 92 L 06/15/21 04:00 Weight - Most Recent: 186 lb I&O - Last 24 Hours: Intake & Output 06/14/21 06/14/21 06/15/21 14:59 22:59 06:59 Intake Total 835 100 125 Balance 835 100 125 Lab Results Last 24 Hours: Laboratory Results - last 24 hr 06/14/21 06/15/21 06/15/21 Range/Units 06:15 05:25 05:25 Hgb 11.2 L 11.8 L (14.0-18.0) g/dL Iron 33 L (65-175) ug/dL Total Bilirubin (0.2-1.0) mg/dL 06/15/21 Range/Units 05:25 Hgb (14.0-18.0) g/dL Iron (65-175) ug/dL Total Bilirubin 0.5 (0.2-1.0) mg/dL Zay Results Last 24 Hours: Microbiology 06/12/21 15:43 Aerobic Blood Culture - Preliminary Blood - Arm, Left NO GROWTH AFTER 2 DAYS Anaerobic Blood Culture - Preliminary NO GROWTH AFTER 2 DAYS 06/12/21 15:39 Aerobic Blood Culture - Preliminary Blood - Arm, Right NO GROWTH AFTER 2 DAYS Anaerobic Blood Culture - Preliminary NO GROWTH AFTER 2 DAYS Med Orders - Current: Current Medications Acetaminophen (Acetaminophen 325 Mg Tab) 650 mg PO Q4H PRN PRN Reason: Pain (Mild 1-3)/fever Albuterol (Albuterol 6.7 Gm Inhaler) 0 gm INH Q4H PRN PRN Reason: Shortness of Breath Baclofen (Baclofen 10 Mg Tab) 10 mg PO ACDINNER [facility] Last Admin: 06/14/21 17:25 Dose: 10 mg Documented by: Baclofen (Baclofen 10 Mg Tab) 15 mg PO BID [facility] Last Admin: 06/14/21 20:16 Dose: 15 mg Documented by: Benzonatate (Benzonatate 100 Mg Cap) 100 mg PO Q8H PRN PRN Reason: Cough Last Admin: 06/14/21 14:29 Dose: 100 mg Documented by: Dexamethasone (Dexamethasone 6 Mg Tablet) 6 mg PO DAILY [facility] Stop: 06/22/21 09:01 Last Admin: 06/14/21 08:54 Dose: 6 mg Documented by: Enoxaparin Sodium (Enoxaparin 40 Mg/0.4 Ml Syringe) 40 mg SUBCUT DAILY [facility] Last Admin: 06/14/21 08:56 Dose: 40 mg Documented by: Guaifenesin/Dextromethorphan (Guaifenesin/Dextromethorphan 100-10 Mg/5 Ml Soln 5 Ml Cup) 10 ml PO Q6H PRN PRN Reason: Cough Last Admin: 06/14/21 17:24 Dose: 10 ml Documented by: Remdesivir 100 mg/ Sodium (Chloride) 100 mls @ 100 mls/hr IV Q24H [facility] Stop: 06/16/21 18:59 Last Admin: 06/14/21 17:25 Dose: 100 mls/hr Documented by: Levothyroxine Sodium (Levothyroxine 25 Mcg Tab) 25 mcg PO ACBREAKFAST [facility] Last Admin: 06/15/21 05:50 Dose: 25 mcg Documented by: Carbamazepine Er (100mg Own Med) 0 mg PO BID [facility] Last Admin: 06/14/21 20:15 Dose: 100 mg Documented by: Cetirizine 10 Mg (Tablet Own Med) 0 mg PO BEDTIME [facility] Last Admin: 06/14/21 20:14 Dose: Not Given Documented by: Alfuzosin 10 Mg Tab. (Er.24h Own Med*) 0 mg PO DAILY@1600 [facility] Ondansetron HCl (Ondansetron 4 Mg/2 Ml Sdv) 4 mg IVPUSH Q6H PRN PRN Reason: Nausea/Vomiting Pregabalin (Pregabalin 50 Mg Cap) 200 mg PO TID [facility] Last Admin: 06/14/21 20:08 Dose: 200 mg Documented by: Sodium Chloride (Sodium Chloride 0.9% 10 Ml Syringe) 10 ml FLUSH ASDIRECTED PRN PRN Reason: Keep Vein Open Last Admin: 06/12/21 21:29 Dose: 10 ml Documented by: Discontinued Medications Albuterol/Ipratropium (Albuterol/Ipratropium 3.0-0.5 Mg/3 Ml Neb Soln) 3 ml NEB ONETIME ONE Stop: 06/12/21 15:53 Last Admin: 06/12/21 18:45 Dose: Not Given Documented by: Remdesivir 200 mg/ Sodium (Chloride) 250 mls @ 250 mls/hr IV ONETIME ONE Stop: 06/12/21 19:04 Last Infusion: 06/12/21 21:27 Dose: Infused Documented by: Sterile Water (Sterile Water For Injection) Confirm Administered Dose 20 mls @ as directed .ROUTE .STK-MED ONE Stop: 06/12/21 19:32 Last Admin: 06/12/21 20:14 Dose: Not Given Documented by: Cefpodoxime 200 Mg (Tablet Own Med) 0 mg PO BID [facility] Stop: 06/12/21 21:01 Last Admin: 06/12/21 21:31 Dose: 200 mg Documented by: Alfuzosin 10 Mg Tab. (Er.24h Own Med*) 0 mg PO DAILY [facility] Alfuzosin 10 Mg Tab. (Er.24h Own Med*) 0 mg PO DAILY@1800 [facility] Last Admin: 06/14/21 19:44 Dose: 1 mg Documented by: Promethazine HCl/Codeine (Codeine/Promethazine 10-6.25 Mg/5 Ml Syrup 5 Ml Ud Cup) 10 ml PO ONETIME ONE Stop: 06/12/21 15:53 Last Admin: 06/12/21 17:14 Dose: 10 ml Documented by: - Exam Quality Assessment: Supplemental Oxygen General: Alert, Oriented HEENT: Pupils Equal Neck: Supple Lungs: Decreased Breath Sounds, Crackles, Wheezing Cardiovascular: Irregular Rhythm, Tachycardia GI/Abdominal Exam: Normal Bowel Sounds, Soft Back Exam: Normal Inspection Extremities: Normal Inspection Peripheral Pulses: 2+: Radial (L), Radial (R) Skin: Warm Neurological: No New Focal Deficit Psy/Mental Status: Alert - Patient Data Lab Results Last 24 hrs: Laboratory Results - last 24 hr 06/14/21 06/15/21 06/15/21 Range/Units 06:15 05:25 05:25 Hgb 11.2 L 11.8 L (14.0-18.0) g/dL Iron 33 L (65-175) ug/dL Total Bilirubin (0.2-1.0) mg/dL 06/15/21 Range/Units 05:25 Hgb (14.0-18.0) g/dL Iron (65-175) ug/dL Total Bilirubin 0.5 (0.2-1.0) mg/dL Result Diagrams: 06/15/21 05:25 06/13/21 06:15 Zay Results Last 24 hrs: Microbiology 06/12/21 15:43 Aerobic Blood Culture - Preliminary Blood - Arm, Left NO GROWTH AFTER 2 DAYS Anaerobic Blood Culture - Preliminary NO GROWTH AFTER 2 DAYS 06/12/21 15:39 Aerobic Blood Culture - Preliminary Blood - Arm, Right NO GROWTH AFTER 2 DAYS Anaerobic Blood Culture - Preliminary NO GROWTH AFTER 2 DAYS Sepsis Event Note - Evaluation Sepsis Screening Result: No Definite Risk - Focused Exam Vital Signs: Vital Signs Temp Pulse Resp BP Pulse Ox 06/15/21 04:00 97.3 F 73 20 116/55 L 92 L 06/14/21 20:00 98.1 F 81 20 131/62 94 L - Problem List & Annotations (1) Acute respiratory failure with hypoxia SNOMED Code(s): 54298130, 500181136 Code(s): J96.01 - ACUTE RESPIRATORY FAILURE WITH HYPOXIA Status: Acute Current Visit: Yes (2) Pneumonia due to COVID-19 virus SNOMED Code(s): 657519883892285806 Code(s): U07.1 - COVID-19; J12.82 - PNEUMONIA DUE TO CORONAVIRUS DISEASE 2019 Status: Acute Current Visit: Yes (3) Retention of urine SNOMED Code(s): 647184224 Code(s): R33.9 - RETENTION OF URINE, UNSPECIFIED Status: Acute Current Visit: No (4) Trigeminal nerve disease SNOMED Code(s): 66277546 Code(s): G50.9 - DISORDER OF TRIGEMINAL NERVE, UNSPECIFIED Status: Acute Current Visit: Yes - Problem List Review Problem List Initiated/Reviewed/Updated: Yes - My Orders Last 24 Hours: My Active Orders 06/14/21 09:23 Benzonatate [Tessalon Perles] 100 mg PO Q8H PRN 06/15/21 16:00 Alfuzosin Hcl [Alfuzosin Hcl Er] 0 mg PO DAILY@1600 - Plan Plan:: Patient is a 76-year-old male with a history of trigeminal neuralgia, BPH who presented with shortness of breath and found to be hypoxic likely secondary to known recent COVID-19 diagnosis. #Acute hypoxic respiratory failure -Secondary to COVID-19 pneumonia -Positive test 06-05-21 -Patient was seen the emergency department on 06-08-21 and was treated with Vantin and azithromycin -finished vantin course during current hospitalization - would hold on further antibiotics - blood cultures negative -Remdesivir per protocol, will do dexamethasone for approximately 5 -10 days given the fact patient has had recent steroid administration -Laboratory monitoring per protocol -Oxygen saturation goal 90% - maintaining oxygen saturations on 2 L via NC -Albuterol inhaler -CT chest showed significant bilateral infiltrates consistent with know COVID 19 infection #Trigeminal neuralgia -Continue home carbamazepine, Lyrica, baclofen #BPHcontinue home alpha-1 medication #Anemiahemoglobin decreased from 15-12.8 on most recent labs over the last 5 days. Patient denies any melena, medic easier, any blood loss. Repeat hemoglobin 11.8 - 11.2 -11.8 -no evidence of hemolysis -ferritin elevated, iron level low concerning for anemia of chronic disease versus iron deficiency Fluidsnone Electrolyteswithin normal limits DietGeneral DVT prophylaxisLovenox Dispo-worsening hypoxia - patient is medically stable -will discharge home with continued p.o. dexamethasone, at home oxygen 2 L continuous, prolonged discussion with patient that he will check his pulse ox and call with any oxygen desaturations and will have close follow-up in clinic after he is out of his quarantine.
--- NOTE | 2021-06-15 09:57 | PCM.DCSUM1 ---
Discharge Summary - Hospital Course Free Text/Narrative:: Patient is a 76-year-old male with a past medical history of trigeminal neuralgia, BPH who presents with COVID-19 pneumonia. Symptoms started at the end of May per patient. Per notes appears that he tested positive for COVID-19 on 06-05-21. Presented to the ED on 06-08-21 with shortness of breath was found to have oxygen saturations of 93-94 on room air. Chest x-ray showed bilateral infiltrates. Patient was given Vantin and azithromycin for 5 days. Since that time patient is at worsening shortness of breath, increasing cough and dyspnea with minimal exertion. Upon presentation to the emergency department today he was hypoxic with oxygen saturations 86 to 87% on room air. Laboratory studies show a hemoglobin of 12.8, WBC of 4.1, platelet count 209, BNP 32, D-dimer minimally elevated at 435, Covid test was again positive. Troponin negative at 26, ferritin elevated 471, CRP 17.8. Sodium 136, potassium 4.1, creatinine 1.07. Patient states that he just has continued worsening shortness of breath and cough. Denies any chest pains or pressures, abdominal pain, nausea or vomiting. Denies any melena, hemoptysis or any evidence of bleeding. Remainder review systems is negative except those listed above. Patient was admitted for further evaluation. Patient finishes course of p.o. antibiotics. Given patient's symptomatic Covid infection with hypoxia he was given remdesivir for a total of 3 doses and p.o. dexamethasone. Since admission patient remained stable for 72 hours on 2 L via nasal cannula. Patient remained hemodynamically stable. Given patient's stability on low levels of oxygen discussion was had with patient about possible discharged home with home oxygen. Patient was in agreement. Patient's hemoglobin was also followed and already had a slight decrease that remained stable during his hospitalization with no signs or symptoms of bleeding. Iron studies obtained showed elevated ferritin likely consistent with his COVID-19 infection. Low iron levels. Recommend follow-up with PCP with repeat hemoglobin, concern for possible iron deficiency anemia versus anemia of chronic disease. Patient was medically stable for discharge be discharged home. Plan to discharge home with 2 to 3 L continuous oxygen, albuterol inhaler, p.o. dexamethasone to complete a 10-day course. Recommend follow-up with his PCP when patient is out of the quarantine. Which is approximately 12-12-21. - Discharge Data Discharge Date: 06/15/21 Discharge Disposition: Home, Self-Care 01 Condition: Good - Referral to Home Health Primary Care Physician: PCP None - Discharge Diagnosis/Problem(s) (1) Acute respiratory failure with hypoxia SNOMED Code(s): 15841295, 539381200 ICD Code: J96.01 - ACUTE RESPIRATORY FAILURE WITH HYPOXIA Status: Acute Current Visit: Yes (2) Pneumonia due to COVID-19 virus SNOMED Code(s): 642853965715362708 ICD Code: U07.1 - COVID-19; J12.82 - PNEUMONIA DUE TO CORONAVIRUS DISEASE 2018 Status: Acute Current Visit: Yes (3) Retention of urine SNOMED Code(s): 565180086 ICD Code: R33.9 - RETENTION OF URINE, UNSPECIFIED Status: Acute Current Visit: No (4) Trigeminal nerve disease SNOMED Code(s): 69212792 ICD Code: G50.9 - DISORDER OF TRIGEMINAL NERVE, UNSPECIFIED Status: Acute Current Visit: Yes - Patient Instructions Diet: Heart Healthy Diet Activity: As Tolerated - Discharge Plan *PRESCRIPTION DRUG MONITORING PROGRAM REVIEWED*: Not Applicable *COPY OF PRESCRIPTION DRUG MONITORING REPORT IN PATIENT APOLINAR: Not Applicable Prescriptions/Med Rec: dexAMETHasone [Dexamethasone] 6 mg PO DAILY 5 Days #15 tab Albuterol [Proventil HFA] 0 gm INH Q4H PRN 30 Days #1 inhaler PRN Reason: Shortness Of Breath Home Medications: Home Meds Alfuzosin HCl [Alfuzosin HCl ER] 10 mg PO DAILY 10/14/18 [History] Cetirizine HCl 10 mg PO BEDTIME 10/14/18 [History] Pregabalin [Lyrica] 200 mg PO TID 10/14/18 [History] carBAMazepine [Carbamazepine ER] 100 mg PO BID 11/12/18 [History] Cyanocobalamin (Vitamin B12) [Vitamin B12] 1,000 mcg PO DAILY 06/08/21 [History] Levothyroxine 25 mcg PO ACBREAKFAST 06/08/21 [History] Baclofen 10 mg PO ACDINNER 06/12/21 [History] Baclofen 15 mg PO BID 06/12/21 [History] Albuterol [Proventil HFA] 0 gm INH Q4H PRN 30 Days #1 inhaler 06/15/21 [Rx] dexAMETHasone [Dexamethasone] 6 mg PO DAILY 5 Days #15 tab 06/15/21 [Rx] Oxygen Therapy Mode: Nasal Cannula Oxygen Flow Rate (L/min): 2 Maintain SpO2% greater than: 90 Referrals: Anmol [employer] [Nurse Practitioner] - (Post hospital follow up appointment on June 20 at 11:00am ) - Discharge Summary/Plan Comment DC Time >30 min.: Yes Total # of Minutes for Discharge Time: 30 minutes - Patient Data Vitals - Most Recent: Last Vital Signs Temp 97.0 F 06/15/21 08:00 Pulse 63 06/15/21 08:00 Resp 18 06/15/21 08:00 BP 127/68 06/15/21 08:00 Pulse Ox 91 L 06/15/21 08:00 Weight - Most Recent: 186 lb I&O - Last 24 hours: Intake & Output 06/14/21 06/15/21 06/15/21 22:59 06:59 14:59 Intake Total 100 125 350 Balance 100 125 350 Lab Results - Last 24 hrs: Laboratory Results - last 24 hr 06/15/21 06/15/21 06/15/21 Range/Units 05:25 05:25 05:25 Hgb 11.8 L (14.0-18.0) g/dL Iron 33 L (65-175) ug/dL Total Bilirubin 0.5 (0.2-1.0) mg/dL [facility] Results - Last 24 hrs: Microbiology 06/12/21 15:43 Aerobic Blood Culture - Preliminary Blood - Arm, Left NO GROWTH AFTER 2 DAYS Anaerobic Blood Culture - Preliminary NO GROWTH AFTER 2 DAYS 06/12/21 15:39 Aerobic Blood Culture - Preliminary Blood - Arm, Right NO GROWTH AFTER 2 DAYS Anaerobic Blood Culture - Preliminary NO GROWTH AFTER 2 DAYS Med Orders - Current: Current Medications Acetaminophen (Acetaminophen 325 Mg Tab) 650 mg PO Q4H PRN PRN Reason: Pain (Mild 1-3)/fever Albuterol (Albuterol 6.7 Gm Inhaler) 0 gm INH Q4H PRN PRN Reason: Shortness of Breath Baclofen (Baclofen 10 Mg Tab) 10 mg PO ACDINNER [facility] Last Admin: 06/14/21 17:25 Dose: 10 mg Documented by: Baclofen (Baclofen 10 Mg Tab) 15 mg PO BID [facility] Last Admin: 06/14/21 20:16 Dose: 15 mg Documented by: Benzonatate (Benzonatate 100 Mg Cap) 100 mg PO Q8H PRN PRN Reason: Cough Last Admin: 06/14/21 14:29 Dose: 100 mg Documented by: Dexamethasone (Dexamethasone 6 Mg Tablet) 6 mg PO DAILY [facility] Stop: 06/22/21 09:01 Last Admin: 06/14/21 08:54 Dose: 6 mg Documented by: Enoxaparin Sodium (Enoxaparin 40 Mg/0.4 Ml Syringe) 40 mg SUBCUT DAILY [facility] Last Admin: 06/14/21 08:56 Dose: 40 mg Documented by: Guaifenesin/Dextromethorphan (Guaifenesin/Dextromethorphan 100-10 Mg/5 Ml Soln 5 Ml Cup) 10 ml PO Q6H PRN PRN Reason: Cough Last Admin: 06/14/21 17:24 Dose: 10 ml Documented by: Remdesivir 100 mg/ Sodium (Chloride) 100 mls @ 100 mls/hr IV Q24H [facility] Stop: 06/16/21 18:59 Last Admin: 06/14/21 17:25 Dose: 100 mls/hr Documented by: Levothyroxine Sodium (Levothyroxine 25 Mcg Tab) 25 mcg PO ACBREAKFAST [facility] Last Admin: 06/15/21 05:50 Dose: 25 mcg Documented by: Carbamazepine Er (100mg Own Med) 0 mg PO BID [facility] Last Admin: 06/14/21 20:15 Dose: 100 mg Documented by: Cetirizine 10 Mg (Tablet Own Med) 0 mg PO BEDTIME [facility] Last Admin: 06/14/21 20:14 Dose: Not Given Documented by: Alfuzosin 10 Mg Tab. (Er.24h Own Med*) 0 mg PO DAILY@1600 [facility] Ondansetron HCl (Ondansetron 4 Mg/2 Ml Sdv) 4 mg IVPUSH Q6H PRN PRN Reason: Nausea/Vomiting Pregabalin (Pregabalin 50 Mg Cap) 200 mg PO TID [facility] Last Admin: 06/14/21 20:08 Dose: 200 mg Documented by: Sodium Chloride (Sodium Chloride 0.9% 10 Ml Syringe) 10 ml FLUSH ASDIRECTED PRN PRN Reason: Keep Vein Open Last Admin: 06/12/21 21:29 Dose: 10 ml Documented by: Discontinued Medications Albuterol/Ipratropium (Albuterol/Ipratropium 3.0-0.5 Mg/3 Ml Neb Soln) 3 ml NEB ONETIME ONE Stop: 06/12/21 15:53 Last Admin: 06/12/21 18:45 Dose: Not Given Documented by: Remdesivir 200 mg/ Sodium (Chloride) 250 mls @ 250 mls/hr IV ONETIME ONE Stop: 06/12/21 19:04 Last Infusion: 06/12/21 21:27 Dose: Infused Documented by: Sterile Water (Sterile Water For Injection) Confirm Administered Dose 20 mls @ as directed .ROUTE .STK-MED ONE Stop: 06/12/21 19:32 Last Admin: 06/12/21 20:14 Dose: Not Given Documented by: Cefpodoxime 200 Mg (Tablet Own Med) 0 mg PO BID [facility] Stop: 06/12/21 21:01 Last Admin: 06/12/21 21:31 Dose: 200 mg Documented by: Alfuzosin 10 Mg Tab. (Er.24h Own Med*) 0 mg PO DAILY [facility] Alfuzosin 10 Mg Tab. (Er.24h Own Med*) 0 mg PO DAILY@1800 [facility] Last Admin: 06/14/21 19:44 Dose: 1 mg Documented by: Promethazine HCl/Codeine (Codeine/Promethazine 10-6.25 Mg/5 Ml Syrup 5 Ml Ud Cup) 10 ml PO ONETIME ONE Stop: 06/12/21 15:53 Last Admin: 06/12/21 17:14 Dose: 10 ml Documented by:
[2021-06-15] MEDS: Enoxaparin 40 MG/0.4 ML Syringe SUBCUT SCH (10:14)
[2021-06-15] MEDS: Pregabalin 50 MG Cap PO SCH ×2 (10:15→16:15)
[2021-06-15] MEDS: Baclofen 10 MG Tab PO SCH (10:15)
[2021-06-15] MEDS: CARBAMAZEPINE 100 MG PO SCH (10:16)
[2021-06-15] MEDS: Dexamethasone 6 MG TABLET PO SCH (10:19)
[2021-06-15 12:09] VITALS: BP 121/54; PULSE 99
[2021-06-15] MEDS ORDERED: ALFUZOSIN 10 MG PO SCH (16:00)
== END 2021-06-15 14:31 | disposition home or self-care (01) | DRG 177 ==
LOC: DL.ED 15:22 → DL.MS 17:19 → DL.ED 17:22
PROVIDERS: ADMIT Internal Medicine; ATTEND Internal Medicine
PROC: 8E0ZXY6 Isolation (ICD-10-PCS; principal; 2021-06-12)
PROC: XW033E5 Introduction of Remdesivir Anti-infective into Peripheral Vein, Percutaneous Approach, New Technology Group 5 (ICD-10-PCS; 2021-06-12)
PROC: 3E0DX3Z Introduction of Anti-inflammatory into Mouth and Pharynx, External Approach (ICD-10-PCS; 2021-06-13)
DX: U07.1 COVID-19 (principal); J12.82 Pneumonia due to coronavirus disease 2019; J96.01 Acute respiratory failure with hypoxia; G81.91 Hemiplegia, unspecified affecting right dominant side; G50.9 Disorder of trigeminal nerve, unspecified; N42.9 Disorder of prostate, unspecified; H91.90 Unspecified hearing loss, unspecified ear; H54.7 Unspecified visual loss; K21.9 Gastro-esophageal reflux disease without esophagitis; E61.1 Iron deficiency; Z85.820 Personal history of malignant melanoma of skin; Z88.1 Allergy status to other antibiotic agents; F32.A Depression, unspecified; E20.9 Hypoparathyroidism, unspecified; N40.1 Benign prostatic hyperplasia with lower urinary tract symptoms; R33.8 Other retention of urine; Z88.0 Allergy status to penicillin; Z88.8 Allergy status to other drugs, medicaments and biological substances; Z79.890 Hormone replacement therapy; Z79.899 Other long term (current) drug therapy; Z90.49 Acquired absence of other specified parts of digestive tract; Z28.82 Immunization not carried out because of caregiver refusal
CPT/HCPCS: 36415; 71250; 80053; 82728; 83605; 83735; 83880; 84484; 85025; 85379; 85610; 85730; 86140; 87040 ×2; 99285; A9270; U0002; 82247; 83540; 85018; J1650; J7050; J8540

== ENCOUNTER 2021-10-09 06:53 | Day surgery (SDC) | payer MEDICARE, BC ==
[2021-10-09] MEDS ORDERED: Sodium Chloride 0.9% 10 ML Syringe IV ONE (06:54)
[2021-10-09] MEDS ORDERED: Dexamethasone 4 MG/ML SDV IV ONE (06:54)
[2021-10-09] MEDS ORDERED: Midazolam 1 MG/ML 2 ML SDV IV ONE (06:54)
[2021-10-09] MEDS ORDERED: Acetaminophen/Codeine 300-30 MG Tab PO PRN (07:00)
[2021-10-09] MEDS ORDERED: Moxifloxacin 0.5% Ophth Soln 3 ML Bottle EYELF ONE (07:00)
[2021-10-09] MEDS ORDERED: Cataract Ophth Solution EYELF ONE (07:00)
[2021-10-09] MEDS ORDERED: Timolol Maleate 0.5% Ophth Soln 5 ML Bottle EYELF ONE (07:00)
[2021-10-09] MEDS ORDERED: Sodium Chloride 0.9% 10 ML Syringe FLUSH PRN (07:00)
[2021-10-09] MEDS ORDERED: Phenylephrine 10% Ophth Soln 5 ML Bot EYELF ONE (07:00)
[2021-10-09] MEDS ORDERED: Proparacaine 0.5% Ophth Soln 15 ML Bottle EYELF ONE (07:00)
[2021-10-09] MEDS ORDERED: Ondansetron 4 MG/2 ML SDV IVPUSH PRN (07:00)
[2021-10-09] MEDS ORDERED: Tropicamide 1% Ophth Soln 15 ML Bottle EYELF ONE (07:00)
[2021-10-09] MEDS ORDERED: Acetaminophen 325 MG Tab PO PRN (07:00)
[2021-10-09] MEDS ORDERED: Povidone-Iodine 5% Sterile Ophth Soln 30 ML Bottle EYELF ONE ×2 (07:00→08:45)
[2021-10-09] MEDS ORDERED: Tetracaine HCl/PF 0.5% 4 ML Bottle EYELF ONE (08:44)
[2021-10-09] MEDS ORDERED: Lidocaine 1% 30 ML SDV ONE (08:44)
[2021-10-09] MEDS ORDERED: Dexamethasone/Neomycin/Polymyxin B Ophth Oint 3.5 GM Tube EYELF ONE (08:46)
[2021-10-09] MEDS ORDERED: Apraclonidine 0.5% Ophth Soln 5 ML Bot EYELF ONE (08:46)
[2021-10-09] MEDS ORDERED: Diclofenac Sodium 0.1% Ophth Soln 5 ML Bottle EYELF ONE (08:46)
[2021-10-09] MEDS ORDERED: Balanced Salt Solution Ophth Irrig 500 ML Bottle IOCULAR ONE (08:47)
[2021-10-09] MEDS ORDERED: Vancomycin 500 MG SDV EYELF ONE (08:47)
[2021-10-09] MEDS ORDERED: Chondroitin Sulfate/Hyaluronate Sodium Ophth Inj 0.5 ML Syringe IOCULAR ONE ×2 (08:48)
[2021-10-09 12:03] VITALS: BP 118/61; PULSE 62
== END 2021-10-09 09:55 | disposition home or self-care (01) ==
LOC: DL.SDS 06:53
PROVIDERS: ATTEND Ophthalmology
DX: H25.812 Combined forms of age-related cataract, left eye (principal); J44.9 Chronic obstructive pulmonary disease, unspecified; E03.9 Hypothyroidism, unspecified; G47.30 Sleep apnea, unspecified; G50.0 Trigeminal neuralgia; R60.9 Edema, unspecified; Z88.8 Allergy status to other drugs, medicaments and biological substances; Z88.0 Allergy status to penicillin; R09.81 Nasal congestion; Z90.49 Acquired absence of other specified parts of digestive tract; Z79.899 Other long term (current) drug therapy; Z79.890 Hormone replacement therapy; Z87.891 Personal history of nicotine dependence; Z79.51 Long term (current) use of inhaled steroids; Z86.718 Personal history of other venous thrombosis and embolism
CPT/HCPCS: 66984; A9270; J1100; J2250; J3370; J3490; V2632

== ENCOUNTER 2021-10-23 06:22 | Day surgery (SDC) | payer MEDICARE, BC ==
[~2021-10-23 06:22] MED LIST changes: +Proparacaine 0.5% Ophth Soln 15 ML Bottle ONE; -Sodium Chloride 0.9% 10 ML Syringe FLUSH PRN
[2021-10-23] MEDS ORDERED: Midazolam 1 MG/ML 2 ML SDV IV ONE (06:23)
[2021-10-23] MEDS ORDERED: Dexamethasone 4 MG/ML SDV IV ONE (06:23)
[2021-10-23] MEDS ORDERED: Sodium Chloride 0.9% 10 ML Syringe IV ONE (06:23)
[2021-10-23] MEDS ORDERED: Tropicamide 1% Ophth Soln 15 ML Bottle EYERT ONE (06:30)
[2021-10-23] MEDS ORDERED: Proparacaine 0.5% Ophth Soln 15 ML Bottle EYERT ONE (06:30)
[2021-10-23] MEDS ORDERED: Cataract Ophth Solution EYERT ONE (06:30)
[2021-10-23] MEDS ORDERED: Acetaminophen/Codeine 300-30 MG Tab PO PRN (06:30)
[2021-10-23] MEDS ORDERED: Moxifloxacin 0.5% Ophth Soln 3 ML Bottle EYERT ONE (06:30)
[2021-10-23] MEDS ORDERED: Phenylephrine 10% Ophth Soln 5 ML Bot EYERT ONE (06:30)
[2021-10-23] MEDS ORDERED: Timolol Maleate 0.5% Ophth Soln 5 ML Bottle EYERT ONE (06:30)
[2021-10-23] MEDS ORDERED: Ondansetron 4 MG/2 ML SDV IVPUSH PRN (06:30)
[2021-10-23] MEDS ORDERED: Acetaminophen 325 MG Tab PO PRN (06:30)
[2021-10-23] MEDS ORDERED: Povidone-Iodine 5% Sterile Ophth Soln 30 ML Bottle EYERT ONE ×2 (06:30→07:51)
[2021-10-23] MEDS ORDERED: Sodium Chloride 0.9% 10 ML Syringe FLUSH PRN (06:30)
[2021-10-23 06:36] VITALS: BP 149/64; PULSE 57
[2021-10-23] MEDS ORDERED: Lidocaine 1% 30 ML SDV ONE (07:50)
[2021-10-23] MEDS ORDERED: Tetracaine HCl/PF 0.5% 4 ML Bottle EYELF ONE (07:50)
[2021-10-23] MEDS ORDERED: Tetracaine HCl/PF 0.5% 4 ML Bottle EYERT ONE (07:50)
[2021-10-23] MEDS ORDERED: Apraclonidine 0.5% Ophth Soln 5 ML Bot EYERT ONE (07:51)
[2021-10-23] MEDS ORDERED: Apraclonidine 0.5% Ophth Soln 5 ML Bot EYELF ONE (07:51)
[2021-10-23] MEDS ORDERED: Povidone-Iodine 5% Sterile Ophth Soln 30 ML Bottle EYELF ONE (07:51)
[2021-10-23] MEDS ORDERED: Vancomycin 500 MG SDV EYELF ONE (07:52)
[2021-10-23] MEDS ORDERED: Balanced Salt Solution Ophth Irrig 500 ML Bottle IOCULAR ONE (07:52)
[2021-10-23] MEDS ORDERED: Diclofenac Sodium 0.1% Ophth Soln 5 ML Bottle EYERT ONE (07:52)
[2021-10-23] MEDS ORDERED: Dexamethasone/Neomycin/Polymyxin B Ophth Oint 3.5 GM Tube EYELF ONE (07:52)
[2021-10-23] MEDS ORDERED: Vancomycin 500 MG SDV EYERT ONE (07:52)
[2021-10-23] MEDS ORDERED: Dexamethasone/Neomycin/Polymyxin B Ophth Oint 3.5 GM Tube EYERT ONE (07:52)
[2021-10-23] MEDS ORDERED: Diclofenac Sodium 0.1% Ophth Soln 5 ML Bottle EYELF ONE (07:52)
[2021-10-23] MEDS ORDERED: Chondroitin Sulfate/Hyaluronate Sodium Ophth Inj 0.5 ML Syringe IOCULAR ONE (07:53)
== END 2021-10-23 09:00 | disposition home or self-care (01) ==
LOC: DL.SDS 06:22
PROVIDERS: ATTEND Ophthalmology
DX: H25.811 Combined forms of age-related cataract, right eye (principal); J44.9 Chronic obstructive pulmonary disease, unspecified; G50.0 Trigeminal neuralgia; E03.9 Hypothyroidism, unspecified; R09.81 Nasal congestion; R60.0 Localized edema; H90.3 Sensorineural hearing loss, bilateral; G47.30 Sleep apnea, unspecified; D63.8 Anemia in other chronic diseases classified elsewhere; N40.0 Benign prostatic hyperplasia without lower urinary tract symptoms; Z88.8 Allergy status to other drugs, medicaments and biological substances; Z88.0 Allergy status to penicillin; Z79.890 Hormone replacement therapy; Z79.899 Other long term (current) drug therapy; Z87.891 Personal history of nicotine dependence
CPT/HCPCS: 00142; A9270-GY; J1100; J2250; J3370; J3490; V2632

== ENCOUNTER 2023-08-21 20:52 | Emergency (ER) | payer OTHER ==
[2023-08-21 22:41] VITALS: BP 140/69; PULSE 88
[2023-08-22 00:14] LABS: EOSINOPHILS PERCENT AUTO 2.3 % (1.0-3.0); HEMATOCRIT 41.9 % (40.0-54.0); HEMOGLOBIN 13.4 g/dL (14.0-18.0); MEAN CORPUSCULAR HEMOGLOBIN 31.5 pg (27.0-34.0); MEAN CORPUSCULAR VOLUME 98.4 fL (80-100); MONOCYTES PERCENT AUTO 13.1 % (2-8); NEUTROPHILS PERCENT AUTO 68.6 % (42.2-75.2); PLATELET COUNT,PLT 203 10^3/uL (150-450); RED BLOOD CELL COUNT 4.26 10^6/uL (4.6-6.2); WHITE BLOOD CELL COUNT,WBC 6.6 10^3/uL (5.0-10.0)
[2023-08-22 00:33] LABS: ALBUMIN 3.2 g/dL (3.4-5.0); ANION GAP 10.6 mEq/L (7-13); BILIRUBIN TOTAL 0.4 mg/dL (0.2-1.0); BUN/CREATININE RATIO 20.2 (No establ ref range); CALCIUM 8.3 mg/dL (8.5-10.1); CREATININE 0.94 mg/dL (0.70-1.30); EST CRCL DRUG DOSING (CG) 59.39 mL/min; POTASSIUM,K 4.6 mmol/L (3.5-5.1); PROTEIN TOTAL,TP 6.7 g/dL (6.4-8.2)
[2023-08-22 00:35] LABS: A/G RATIO 0.91
[2023-08-22 00:54] LABS: SEDIMENTATION RATE MANUAL 21 mm/hr (0-15)
== END 2023-08-22 01:19 | disposition home or self-care (01) ==
LOC: DL.ED 20:52
DX: N36.8 Other specified disorders of urethra (principal); R31.9 Hematuria, unspecified; J44.9 Chronic obstructive pulmonary disease, unspecified; E20.9 Hypoparathyroidism, unspecified; Z88.0 Allergy status to penicillin; Z88.8 Allergy status to other drugs, medicaments and biological substances; Z88.5 Allergy status to narcotic agent; Z79.51 Long term (current) use of inhaled steroids; Z79.899 Other long term (current) drug therapy
CPT/HCPCS: 36415; 80053; 85025; 85651; 99283

== ENCOUNTER 2024-11-15 09:51 | Emergency (ER) | payer OTHER ==
[2024-11-15 10:32] VITALS: BP 117/58; PULSE 70
== END 2024-11-15 11:09 | disposition home or self-care (01) ==
LOC: DL.ED 09:51
DX: M25.561 Pain in right knee (principal); M70.861 Other soft tissue disorders related to use, overuse and pressure, right lower leg; E20.9 Hypoparathyroidism, unspecified; Z88.0 Allergy status to penicillin; Z88.1 Allergy status to other antibiotic agents; Z88.8 Allergy status to other drugs, medicaments and biological substances; Z90.49 Acquired absence of other specified parts of digestive tract; Z86.16 Personal history of COVID-19
CPT/HCPCS: 73562-RT; 99283

== ENCOUNTER 2025-05-31 12:03 | Emergency (ER) | payer OTHER ==
[2025-05-31 12:35] LABS: APPEARANCE,URINE CLEAR (CLEAR); GLUCOSE,URINE NEGATIVE (NEGATIVE); OCCULT BLOOD,URINE MODERATE (NEGATIVE)
[2025-05-31] MEDS: Lactated Ringers 1,000 ML IV ONE (12:54)
[2025-05-31 12:58] LABS: BASOPHILS PERCENT AUTO 0.0 % (0.0-1.0); EOSINOPHILS PERCENT AUTO 1.9 % (1.0-3.0); LYMPHOCYTES PERCENT AUTO 24.0 % (20.5-50.1); MONOCYTES PERCENT AUTO 11.9 % (2-8); NEUTROPHILS PERCENT AUTO 62.2 % (42.2-75.2); PLATELET COUNT,PLT 214 10^3/uL (150-450); RED BLOOD CELL COUNT 4.62 10^6/uL (4.6-6.2); WHITE BLOOD CELL COUNT,WBC 4.1 10^3/uL (5.0-10.0)
[2025-05-31 13:17] LABS: BLOOD UREA NITROGEN,BUN 22 mg/dL (7-18); CARBON DIOXIDE,CO2 27 mmol/L (21-32); CHLORIDE,CL 102 mmol/L (98-107); CREATININE 0.99 mg/dL (0.70-1.30); ESTIMATED GFR 77 mL/min (>=60); GLUCOSE RANDOM 118 mg/dL (70-99); PHOSPHORUS 3.6 mg/dL (2.6-4.7); POTASSIUM,K 4.5 mmol/L (3.5-5.1); SODIUM,NA 138 mmol/L (136-145)
[2025-05-31 13:29] LABS: EPITHELIAL CELLS,URINE RARE /HPF (NOT SEEN)
[2025-05-31] MEDS: Magnesium Sulfate 2 GM/50 mL 2 GM in Premix Bag 1 BAG IV ONE (13:55)
[2025-05-31] MEDS: Iopamidol 755 Mg/ML 100 ML Bottle IVPUSH ONE (15:25)
[2025-05-31] MEDS: Metoprolol Tartrate 5 MG/5 ML SDV IVPUSH ONE (16:46)
[2025-05-31 17:50] VITALS: PULSE 75
[2025-05-31 18:08] VITALS: BP 110/82
== END 2025-05-31 18:48 | disposition home or self-care (01) ==
LOC: DL.ED 12:03
DX: I48.92 Unspecified atrial flutter (principal); J44.9 Chronic obstructive pulmonary disease, unspecified; Z79.899 Other long term (current) drug therapy; Z88.1 Allergy status to other antibiotic agents; Z88.8 Allergy status to other drugs, medicaments and biological substances; Z79.890 Hormone replacement therapy; Z90.49 Acquired absence of other specified parts of digestive tract
CPT/HCPCS: 36415; 51702; 71275; 80048; 81001; 83735; 84100; 85025; 93005; 96360; 96365; 96375; 99284; A9270; J0616; J3475; J7120; Q9967

== ENCOUNTER 2025-06-02 10:01 | Emergency (ER) | payer OTHER ==
[2025-06-02 10:59] VITALS: BP 138/88; PULSE 122
== END 2025-06-02 10:50 | disposition home or self-care (01) ==
LOC: DL.ED 10:01
DX: T83.031A Leakage of indwelling urethral catheter, initial encounter (principal); Z88.8 Allergy status to other drugs, medicaments and biological substances; Z86.16 Personal history of COVID-19; Y84.6 Urinary catheterization as the cause of abnormal reaction of the patient, or of later complication, without mention of misadventure at the time of the procedure
CPT/HCPCS: 99283